=== PATIENT | male | born 1935 | race Caucasian/White ===

== ENCOUNTER 2020-01-24 09:04 | Outpatient (REF) | payer MEDICARE, SELFPAY ==
[2020-01-24 10:11] LABS: MANUAL DIFF FLAG NO
[2020-01-24 10:25] LABS: Estimated Average Glucose 140 mg/dL; Hemoglobin A1c % 6.5 %
[2020-01-24 10:26] LABS: Basophils Percent Auto 0.6 % (0-2); Eosinophils Absolute Auto 0.2 X10*3/uL (0.0-0.4); Eosinophils Percent Auto 3.3 % (0-4); Hematocrit 44.3 % (42-52); Hemoglobin 14.7 g/dl (14.0-18.0); Imm Gran Abs Auto 0.03 X10*3/uL (0.00-0.03); Imm Gran Pct Auto 0.4 % (0.0-0.4); Lymphocytes Percent Auto 28.9 % (20-40); Mean Corpuscular HGB Conc 33.2 g/dl (31.0-36.0); Mean Corpuscular Volume 84.4 fL (80-98); Mean Platelet Volume 10.8 fL (9.4-12.4); Monocytes Absolute Auto 0.7 X10*3/uL (0.1-1.2); Monocytes Percent Auto 9.6 % (2-11); Neutrophils Percent Auto 57.2 % (45-73); Platelet Count 163 X10*3/uL (160-400); Red Blood Count 5.25 X10*6/uL (4.60-5.80); Red Cell Distribution Width 12.9 % (11.0-16.0)
[2020-01-24 10:49] LABS: Alanine Aminotransferase 22 U/L (0-40); Albumin Level 4.3 g/dL (3.5-5.0); Alkaline Phosphatase 81 U/L (39-117); Anion Gap 12 (12-20); Aspartate Amino Transferase 18 U/L (5-37); Bilirubin Total 0.6 mg/dL (0.0-1.0); Blood Urea Nitrogen 18 mg/dL (9-16); Carbon Dioxide 31 mmol/L (22-29); Chloride 106 mmol/L (96-108); Cholesterol 145 mg/dL; Estimated Glomerular Filt Rate > 60; Glucose Fasting 121 mg/dL (60-99); HDL Cholesterol 31 mg/dL; LDL Cholesterol Calculated 95 mg/dl; Potassium 4.7 mmol/l (3.3-5.1); Sodium 144 mmol/L (135-145); Total Protein 6.5 g/dL (6.5-8.0); Triglycerides 96 mg/dL
[2020-01-24 11:32] LABS: Creatinine Urine 58.53 mg/dL; Microalbum/Creatinine Ratio Ur 11.9 ug/mg cr
== END 2020-01-24 09:05 | disposition home or self-care (01) ==
LOC: HO.10HDL 09:04
PROVIDERS: Visit Provider Internal Medicine Medical Oncology
DX: C34.90 Malignant neoplasm of unspecified part of unspecified bronchus or lung (principal); E11.9 Type 2 diabetes mellitus without complications; I10 Essential (primary) hypertension
CPT/HCPCS: 36415; 80053; 80061; 82043; 83036; 85025

== ENCOUNTER 2020-04-14 10:07 | Outpatient (REF) | payer MEDICARE, SELFPAY ==
[2020-04-14 14:15] LABS: MANUAL DIFF FLAG NO
[2020-04-14 14:22] LABS: Basophils Absolute Auto 0.1 X10*3/uL (0.0-0.2); Basophils Percent Auto 0.7 % (0-2); Eosinophils Absolute Auto 0.2 X10*3/uL (0.0-0.4); Eosinophils Percent Auto 2.9 % (0-4); Hematocrit 48.4 % (42-52); Hemoglobin 15.6 g/dl (14.0-18.0); Imm Gran Abs Auto 0.01 X10*3/uL (0.00-0.03); Imm Gran Pct Auto 0.1 % (0.0-0.4); Lymphocytes Absolute Auto 1.9 X10*3/uL (1.2-4.9); Lymphocytes Percent Auto 25.3 % (20-40); Mean Corpuscular HGB Conc 32.2 g/dl (31.0-36.0); Mean Corpuscular Hemoglobin 27.7 pg (27.0-33.0); Mean Corpuscular Volume 85.8 fL (80-98); Mean Platelet Volume 10.6 fL (9.4-12.4); Monocytes Absolute Auto 0.7 X10*3/uL (0.1-1.2); Monocytes Percent Auto 8.8 % (2-11); Neutrophils Absolute Auto 4.7 X10*3/uL (2.0-8.3); Neutrophils Percent Auto 62.2 % (45-73); Platelet Count 174 X10*3/uL (160-400); Red Blood Count 5.64 X10*6/uL (4.60-5.80); White Blood Count 7.5 X10*3/uL (4.8-10.8)
[2020-04-14 14:42] LABS: Alanine Aminotransferase 29 U/L (0-40); Albumin Level 4.4 g/dL (3.5-5.0); Alkaline Phosphatase 109 U/L (39-117); Anion Gap 15 (12-20); Aspartate Amino Transferase 21 U/L (5-37); Bilirubin Total 0.6 mg/dL (0.0-1.0); Blood Urea Nitrogen 17 mg/dL (9-16); Carbon Dioxide 29 mmol/L (22-29); Chloride 101 mmol/L (96-108); Cholesterol 159 mg/dL; Estimated Average Glucose 154 mg/dL; Estimated Glomerular Filt Rate > 60; Glucose Fasting 109 mg/dL (60-99); HDL Cholesterol 33 mg/dL; LDL Cholesterol Calculated 102 mg/dl; Potassium 4.2 mmol/l (3.3-5.1); Sodium 141 mmol/L (135-145); Total Protein 6.8 g/dL (6.5-8.0); Triglycerides 121 mg/dL
[2020-04-14 14:50] LABS: Creatinine Urine 86.92 mg/dL; Microalbum/Creatinine Ratio Ur 18.4 ug/mg cr
== END 2020-04-14 10:08 | disposition home or self-care (01) ==
LOC: HO.10HDL 10:07
PROVIDERS: Absent Provider Internal Medicine; PCP Internal Medicine; Visit Provider Internal Medicine Medical Oncology
DX: C34.90 Malignant neoplasm of unspecified part of unspecified bronchus or lung (principal); I10 Essential (primary) hypertension; E11.9 Type 2 diabetes mellitus without complications
CPT/HCPCS: 36415; 80053; 80061; 82043; 83036; 85025

== ENCOUNTER 2020-05-18 10:58 | Outpatient (REF) | payer MEDICARE, SELFPAY ==
--- NOTE | ~2020-05-18 | XR_ITS ---
EXAMINATION: XR CHEST CLINICAL INFORMATION: Non-small cell lung carcinoma. COMPARISON: Chest 10/23/2019 TECHNIQUE: 2 views of the chest were obtained. FINDINGS: The right hemidiaphragm is elevated. The lungs are otherwise well-expanded and clear. The heart size is borderline normal. Vascularity is normal. No gross bony abnormality seen. XR/XR chest 2V IMPRESSION: Unremarkable chest examination. No change from 10/23/2019
== END 2020-05-18 10:59 | disposition home or self-care (01) ==
LOC: HO.XRAY 10:58
PROVIDERS: Absent Provider Internal Medicine; PCP Internal Medicine; Visit Provider Internal Medicine Medical Oncology
DX: C34.90 Malignant neoplasm of unspecified part of unspecified bronchus or lung (principal)
CPT/HCPCS: 71046

== ENCOUNTER 2020-06-24 11:21 | Outpatient (REF) | payer MEDICARE, SELFPAY ==
[2020-06-24 14:06] LABS: MANUAL DIFF FLAG NO
[2020-06-24 14:11] LABS: Basophils Absolute Auto 0.1 X10*3/uL (0.0-0.2); Basophils Percent Auto 0.7 % (0-2); Eosinophils Absolute Auto 0.3 X10*3/uL (0.0-0.4); Eosinophils Percent Auto 3.2 % (0-4); Hematocrit 48.2 % (42-52); Hemoglobin 16.1 g/dl (14.0-18.0); Imm Gran Abs Auto 0.02 X10*3/uL (0.00-0.03); Imm Gran Pct Auto 0.2 % (0.0-0.4); Lymphocytes Percent Auto 25.1 % (20-40); Mean Corpuscular HGB Conc 33.4 g/dl (31.0-36.0); Mean Corpuscular Hemoglobin 28.2 pg (27.0-33.0); Mean Corpuscular Volume 84.4 fL (80-98); Mean Platelet Volume 11.2 fL (9.4-12.4); Monocytes Absolute Auto 0.6 X10*3/uL (0.1-1.2); Monocytes Percent Auto 7.3 % (2-11); Neutrophils Absolute Auto 5.2 X10*3/uL (2.0-8.3); Neutrophils Percent Auto 63.5 % (45-73); Platelet Count 167 X10*3/uL (160-400); Red Blood Count 5.71 X10*6/uL (4.60-5.80); Red Cell Distribution Width 13.2 % (11.0-16.0); White Blood Count 8.1 X10*3/uL (4.8-10.8)
[2020-06-24 14:26] LABS: Estimated Average Glucose 134 mg/dL; Hemoglobin A1c % 6.3 %
[2020-06-24 14:31] LABS: Alanine Aminotransferase 20 U/L (0-40); Albumin Level 4.4 g/dL (3.5-5.0); Alkaline Phosphatase 94 U/L (39-117); Anion Gap 13 (12-20); Aspartate Amino Transferase 21 U/L (5-37); Bilirubin Total 0.9 mg/dL (0.0-1.0); Blood Urea Nitrogen 15 mg/dL (9-16); C Reactive Protein 0.24 mg/dL (< or = 0.50); Calcium 8.9 mg/dL (8.4-10.2); Carbon Dioxide 31 mmol/L (22-29); Chloride 100 mmol/L (96-108); Creatinine Urine 95.48 mg/dL; Estimated Glomerular Filt Rate > 60; Glucose Random 167 mg/dL (60-115); Microalbum/Creatinine Ratio Ur 20.9 ug/mg cr; Potassium 4.1 mmol/L (3.3-5.1); Sodium 140 mmol/L (135-145); Total Protein 6.8 g/dL (6.5-8.0)
[2020-06-24 15:01] LABS: Vitamin B12 308 pg/mL (200-900)
== END 2020-06-24 11:22 | disposition home or self-care (01) ==
LOC: HO.10HDL 11:21
PROVIDERS: Visit Provider Internal Medicine
DX: E11.9 Type 2 diabetes mellitus without complications (principal); G62.9 Polyneuropathy, unspecified; Z85.118 Personal history of other malignant neoplasm of bronchus and lung
CPT/HCPCS: 36415; 80053; 82043; 82607; 83036; 85025; 86140

== ENCOUNTER 2020-09-15 12:55 | Outpatient (REF) | payer MEDICARE, SELFPAY ==
--- NOTE | ~2020-09-15 | CT_ITS ---
EXAMINATION: CT CHEST WITHOUT CONTRAST CLINICAL INFORMATION: Malignant neoplasm right upper lobe. COMPARISON: Previous chest CT scans most recent June 2019 and chest x-ray most recent May 2020 TECHNIQUE: Multidetector volumetric CT imaging of the chest was done. Axial MIP volume rendering provided. Sagittal and coronal reformatted images were obtained. This CT examination was performed using dose optimization techniques as appropriate, variously including the following: *Automated exposure control *Adjustment of mA and/or kV according to patient size (this includes techniques or standardized protocols for targeted exams where dose is matched to indication/reason for exam; i.e. extremities or head) *Use of iterative reconstruction technique DLP: 167 mGy-cm FINDINGS: LUNGS: There are postsurgical changes following right upper lobe lobectomy. There is a linear parenchymal density at the right lung apex axial image 113 series 7 that is stable. There is scarring or subsegmental atelectasis adjacent to the surgical suture line, for example axial image 213 series 7, that is stable. The small pulmonary nodules are stable. Largest is a 4 mm peripheral or subpleural right lower lobe nodule adjacent to the major fissure probably representing a subpleural lymph node axial image 297 series 7. No new pulmonary nodules are seen. MEDIASTINUM: There are small mediastinal lymph nodes that are stable. There are small calcified right hilar lymph nodes that are stable. No enlarged lymph nodes are seen. The ascending thoracic aorta is slightly dilated measuring 4.3 cm. The aortic arch is slightly dilated measuring 3.6 cm. The descending thoracic aorta is slightly dilated measuring 3.4 cm. This is unchanged. The heart does not appear enlarged. There is coronary artery and aortic valve calcification. There is no pericardial effusion. PLEURA: There is no pleural effusion. No pleural mass or thickening. AXILLA: No lymphadenopathy. UPPER ABDOMEN: There are calcifications in the liver and spleen probably related to old granulomatous disease. There is a gallstone in the gallbladder. There is a 1 cm low-attenuation lesion exophytic to the upper left kidney probably representing a cyst that is stable. 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 There is diverticulosis of the colon. OSSEOUS STRUCTURES: There are degenerative changes of the spine. There is an old T2 vertebral body compression fracture that is stable. There is a sclerotic density in the anterior C7 vertebral body that is stable. CT/CT chest wo con IMPRESSION: Stable postsurgical changes to the right upper lobe. Stable small pulmonary nodules. Evidence of old granulomatous disease. Coronary artery and aortic valve calcification. Stable dilatation of the thoracic aorta. Stable abdominal findings.
== END 2020-09-15 12:56 | disposition home or self-care (01) ==
LOC: HO.CT 12:55
PROVIDERS: Visit Provider Surgery
DX: C34.11 Malignant neoplasm of upper lobe, right bronchus or lung (principal)
CPT/HCPCS: 71250

== ENCOUNTER → 2020-10-09 11:00 | Outpatient (BNVA) | payer MEDICARE, SELFPAY | PROVIDERS: PCP Internal Medicine; Visit Provider Surgery | DX: Z85.118 Personal history of other malignant neoplasm of bronchus and lung (principal); Z79.899 Other long term (current) drug therapy; Z90.2 Acquired absence of lung [part of] | CPT/HCPCS: 99212 ==

== ENCOUNTER 2020-10-15 09:59 | Outpatient (REF) | payer MEDICARE, SELFPAY ==
[2020-10-15 13:32] LABS: MANUAL DIFF FLAG NO
[2020-10-15 13:40] LABS: Basophils Absolute Auto 0.1 X10*3/uL (0.0-0.2); Basophils Percent Auto 0.8 % (0-2); Eosinophils Absolute Auto 0.2 X10*3/uL (0.0-0.4); Hematocrit 48.3 % (42-52); Imm Gran Abs Auto 0.02 X10*3/uL (0.00-0.03); Imm Gran Pct Auto 0.3 % (0.0-0.4); Lymphocytes Absolute Auto 1.8 X10*3/uL (1.2-4.9); Lymphocytes Percent Auto 25.2 % (20-40); Mean Corpuscular HGB Conc 33.1 g/dl (31.0-36.0); Mean Corpuscular Hemoglobin 28.4 pg (27.0-33.0); Mean Corpuscular Volume 85.6 fL (80-98); Mean Platelet Volume 10.8 fL (9.4-12.4); Monocytes Absolute Auto 0.5 X10*3/uL (0.1-1.2); Monocytes Percent Auto 7.1 % (2-11); Neutrophils Absolute Auto 4.5 X10*3/uL (2.0-8.3); Neutrophils Percent Auto 63.6 % (45-73); Platelet Count 156 X10*3/uL (160-400); Red Blood Count 5.64 X10*6/uL (4.60-5.80); Red Cell Distribution Width 13.2 % (11.0-16.0); White Blood Count 7.1 X10*3/uL (4.8-10.8)
[2020-10-15 13:59] LABS: Alanine Aminotransferase 22 U/L (0-40); Albumin Level 4.4 g/dL (3.5-5.0); Alkaline Phosphatase 92 U/L (39-117); Anion Gap 12 (12-20); Aspartate Amino Transferase 18 U/L (5-37); Bilirubin Total 0.7 mg/dL (0.0-1.0); Blood Urea Nitrogen 19 mg/dL (9-16); Calcium 9.2 mg/dL (8.4-10.2); Carbon Dioxide 31 mmol/L (22-29); Chloride 104 mmol/L (96-108); Estimated Glomerular Filt Rate > 60; Glucose Random 114 mg/dL (60-115); Potassium 4.4 mmol/L (3.3-5.1); Sodium 143 mmol/L (135-145); Total Protein 7.1 g/dL (6.5-8.0)
== END 2020-10-15 10:00 | disposition home or self-care (01) ==
LOC: HO.10HDL 09:59
PROVIDERS: PCP Internal Medicine; Visit Provider Internal Medicine Medical Oncology
DX: C34.90 Malignant neoplasm of unspecified part of unspecified bronchus or lung (principal)
CPT/HCPCS: 36415; 80053; 85025

== ENCOUNTER → 2020-11-05 13:33 | Outpatient (BNVA) | payer MEDICARE, SELFPAY | PROVIDERS: PCP Internal Medicine; Referring Provider Internal Medicine; Visit Provider Internal Medicine | DX: I49.8 Other specified cardiac arrhythmias (principal); I10 Essential (primary) hypertension; E11.8 Type 2 diabetes mellitus with unspecified complications | CPT/HCPCS: 93005; 99212 ==

== ENCOUNTER 2021-02-11 11:36 | Outpatient (REF) | payer MEDICARE, SELFPAY ==
[2021-02-11 12:44] LABS: MANUAL DIFF FLAG NO
[2021-02-11 13:06] LABS: Estimated Average Glucose 140 mg/dL; Hemoglobin A1c % 6.5 %
[2021-02-11 13:08] LABS: Alanine Aminotransferase 19 U/L (0-40); Albumin Level 4.2 g/dL (3.5-5.0); Alkaline Phosphatase 97 U/L (39-117); Anion Gap 13 (12-20); Aspartate Amino Transferase 19 U/L (5-37); Bilirubin Total 0.9 mg/dL (0.0-1.0); Blood Urea Nitrogen 18 mg/dL (9-16); Calcium 9.2 mg/dL (8.4-10.2); Carbon Dioxide 31 mmol/L (22-29); Chloride 102 mmol/L (96-108); Estimated Glomerular Filt Rate > 60; Glucose Random 214 mg/dL (60-115); Potassium 4.2 mmol/L (3.3-5.1); Sodium 142 mmol/L (135-145); Total Protein 6.8 g/dL (6.5-8.0)
[2021-02-11 13:13] LABS: Basophils Absolute Auto 0.1 X10*3/uL (0.0-0.2); Basophils Percent Auto 0.8 % (0-2); Eosinophils Absolute Auto 0.2 X10*3/uL (0.0-0.4); Hematocrit 45.9 % (42.0-52.0); Hemoglobin 15.3 g/dl (14.0-18.0); Imm Gran Abs Auto 0.02 X10*3/uL (0.00-0.03); Imm Gran Pct Auto 0.3 % (0.0-0.4); Lymphocytes Absolute Auto 1.6 X10*3/uL (1.2-4.9); Lymphocytes Percent Auto 24.7 % (20-40); Mean Corpuscular HGB Conc 33.3 g/dl (31.0-36.0); Mean Corpuscular Hemoglobin 28.3 pg (27.0-33.0); Mean Corpuscular Volume 84.8 fL (80.0-98.0); Mean Platelet Volume 10.4 fL (9.4-12.4); Monocytes Absolute Auto 0.5 X10*3/uL (0.1-1.2); Monocytes Percent Auto 7.8 % (2-11); Neutrophils Absolute Auto 4.17 x10*3/uL (2.0-8.3); Neutrophils Percent Auto 63.4 % (45-73); Platelet Count 152 X10*3/uL (160-400); Red Blood Count 5.41 X10*6/uL (4.60-5.80); White Blood Count 6.6 X10*3/uL (4.8-10.8)
[2021-02-11 14:17] LABS: Creatinine Urine 78.53 mg/dL; Microalbum/Creatinine Ratio Ur 20.3 ug/mg cr
== END 2021-02-11 11:37 | disposition home or self-care (01) ==
LOC: HO.10HDL 11:36
PROVIDERS: Absent Provider Internal Medicine Medical Oncology; Visit Provider Internal Medicine
DX: E11.9 Type 2 diabetes mellitus without complications (principal); I48.91 Unspecified atrial fibrillation
CPT/HCPCS: 36415; 80053; 82043; 83036; 85025

== ENCOUNTER 2021-06-22 11:52 | Outpatient (REF) | payer MEDICARE, SELFPAY ==
--- NOTE | ~2021-06-22 | XR_ITS ---
EXAMINATION: XR CHEST CLINICAL INFORMATION: Non-small cell lung cancer. COMPARISON: Chest radiographs 05/18/2020, 10/23/2019, CT chest noncontrast 09/15/2020 TECHNIQUE: 2 views of the chest were obtained. FINDINGS: Lungs appear grossly clear, similar to prior study. There is no visible mass or airspace consolidation or groundglass opacity or effusion. Mild elevation/eventration right anterior diaphragm is stable. The costophrenic sulci are clear. The cardiac and hilar and mediastinal contours and visualized bony structures are stable. XR/XR chest 2V IMPRESSION: No acute intrathoracic disease.
[2021-06-22 12:44] LABS: Basophils Absolute Auto 0.1 X10*3/uL (0.0-0.2); Basophils Percent Auto 0.7 % (0-2); Eosinophils Absolute Auto 0.2 X10*3/uL (0.0-0.4); Eosinophils Percent Auto 3.3 % (0-4); Hematocrit 48.2 % (42.0-52.0); Hemoglobin 15.9 g/dl (14.0-18.0); Imm Gran Abs Auto 0.03 X10*3/uL (0.00-0.03); Imm Gran Pct Auto 0.4 % (0.0-0.4); Lymphocytes Absolute Auto 1.7 X10*3/uL (1.2-4.9); MANUAL DIFF FLAG NO; Mean Corpuscular Hemoglobin 28.3 pg (27.0-33.0); Mean Corpuscular Volume 85.8 fL (80.0-98.0); Mean Platelet Volume 10.7 fL (9.4-12.4); Monocytes Absolute Auto 0.5 X10*3/uL (0.1-1.2); Monocytes Percent Auto 7.3 % (2-11); Neutrophils Absolute Auto 4.6 x10*3/uL (2.0-8.3); Neutrophils Percent Auto 64.3 % (45-73); Platelet Count 171 X10*3/uL (160-400); Red Blood Count 5.62 X10*6/uL (4.60-5.80); Red Cell Distribution Width 13.2 % (11.0-16.0); White Blood Count 7.2 X10*3/uL (4.8-10.8)
[2021-06-22 13:20] LABS: Alanine Aminotransferase 19 U/L (0-40); Albumin Level 4.4 g/dL (3.5-5.0); Alkaline Phosphatase 107 U/L (39-117); Anion Gap 14 (12-20); Aspartate Amino Transferase 17 U/L (5-37); Bilirubin Total 0.8 mg/dL (0.0-1.0); Blood Urea Nitrogen 18 mg/dL (9-16); Calcium 10.1 mg/dL (8.4-10.2); Carbon Dioxide 27 mmol/L (22-29); Chloride 101 mmol/L (96-108); Estimated Glomerular Filt Rate 57; Glucose Random 235 mg/dL (60-115); Magnesium 1.8 mg/dL (1.6-2.6); Potassium 4.3 mmol/L (3.3-5.1); Sodium 138 mmol/L (135-145)
[2021-06-22 13:40] LABS: Prostate Specific Antigen 2.79 ng/mL (<0.05-4.0)
== END 2021-06-22 11:53 | disposition home or self-care (01) ==
LOC: HO.XRAY 11:52
PROVIDERS: Absent Provider Internal Medicine; PCP Internal Medicine; Visit Provider Internal Medicine Medical Oncology
DX: Z12.5 Encounter for screening for malignant neoplasm of prostate (principal); C34.90 Malignant neoplasm of unspecified part of unspecified bronchus or lung; I10 Essential (primary) hypertension; N40.1 Benign prostatic hyperplasia with lower urinary tract symptoms; I48.0 Paroxysmal atrial fibrillation
CPT/HCPCS: 36415; 71046; 80053; 83735; 84153; 85025

== ENCOUNTER 2021-09-02 13:50 | Outpatient (REF) | payer MEDICARE, SELFPAY ==
[2021-09-02 14:10] LABS: MANUAL DIFF FLAG NO
[2021-09-02 14:19] LABS: Basophils Absolute Auto 0.1 X10*3/uL (0.0-0.2); Basophils Percent Auto 0.6 % (0-2); Eosinophils Absolute Auto 0.2 X10*3/uL (0.0-0.4); Eosinophils Percent Auto 2.1 % (0-4); Hematocrit 46.8 % (42.0-52.0); Hemoglobin 15.5 g/dl (14.0-18.0); Imm Gran Abs Auto 0.03 X10*3/uL (0.00-0.03); Imm Gran Pct Auto 0.4 % (0.0-0.4); Lymphocytes Absolute Auto 1.8 X10*3/uL (1.2-4.9); Lymphocytes Percent Auto 22.1 % (20-40); Mean Corpuscular HGB Conc 33.1 g/dl (31.0-36.0); Mean Corpuscular Hemoglobin 28.1 pg (27.0-33.0); Mean Corpuscular Volume 84.8 fL (80.0-98.0); Mean Platelet Volume 10.1 fL (9.4-12.4); Monocytes Absolute Auto 0.7 X10*3/uL (0.1-1.2); Monocytes Percent Auto 8.8 % (2-11); Neutrophils Absolute Auto 5.4 x10*3/uL (2.0-8.3); Platelet Count 165 X10*3/uL (160-400); Red Blood Count 5.52 X10*6/uL (4.60-5.80); Red Cell Distribution Width 13.1 % (11.0-16.0); White Blood Count 8.2 X10*3/uL (4.8-10.8)
[2021-09-02 14:48] LABS: Estimated Average Glucose 140 mg/dL; Hemoglobin A1c % 6.5 %
[2021-09-02 15:49] LABS: Alanine Aminotransferase 23 U/L (0-40); Albumin Level 4.3 g/dL (3.5-5.0); Alkaline Phosphatase 88 U/L (39-117); Anion Gap 14 (12-20); Aspartate Amino Transferase 19 U/L (5-37); Bilirubin Total 0.7 mg/dL (0.0-1.0); Blood Urea Nitrogen 21 mg/dL (9-16); C Reactive Protein 0.16 mg/dL (< or = 0.50); Calcium 9.7 mg/dL (8.4-10.2); Carbon Dioxide 28 mmol/L (22-29); Chloride 105 mmol/L (96-108); Estimated Glomerular Filt Rate > 60; Glucose Random 140 mg/dL (60-115); Potassium 4.6 mmol/L (3.3-5.1); Sodium 142 mmol/L (135-145)
[2021-09-02 16:09] LABS: Free T4 (Free Thyroxine) 1.05 ng/dL (0.71-1.85); Thyroid Stimulating Hormone 0.98 uIU/mL (0.32-4.0)
[2021-09-02 16:16] LABS: Microalbum/Creatinine Ratio Ur 12.8 ug/mg cr
[2021-09-02 16:16] LABS: Vitamin B12 282 pg/mL (200-900)
== END 2021-09-02 13:51 | disposition home or self-care (01) ==
LOC: HO.LAB 13:50
PROVIDERS: Absent Provider Surgery; PCP Internal Medicine; Visit Provider Internal Medicine
DX: I48.0 Paroxysmal atrial fibrillation (principal); E11.9 Type 2 diabetes mellitus without complications; R21 Rash and other nonspecific skin eruption; R25.1 Tremor, unspecified
CPT/HCPCS: 36415; 80053; 82043; 82607; 83036; 84439; 84443; 85025; 86140

== ENCOUNTER 2021-09-20 12:45 | Outpatient (REF) | payer MEDICARE, SELFPAY ==
--- NOTE | ~2021-09-20 | CT_ITS ---
EXAMINATION: CT CHEST WITHOUT CONTRAST CLINICAL INFORMATION: Malignant neoplasm of upper lobes, right bronchus. COMPARISON: CT chest 09/27/2020. TECHNIQUE: Multidetector volumetric CT imaging of the chest was done. Axial MIP volume rendering provided. Sagittal and coronal reformatted images were obtained. This CT examination was performed using dose optimization techniques as appropriate, variously including the following: *Automated exposure control *Adjustment of mA and/or kV according to patient size (this includes techniques or standardized protocols for targeted exams where dose is matched to indication/reason for exam; i.e. 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 LUNGS: Again visualized are right upper lobectomy changes with thick scar. There is minimal right apical medial major fissure thickening as well. Focal small nodular thickening is in the right lung apex axial image 108/7 and small micronodules in the right upper lobe are stable. There is a 5 mm nodule right lower lobe adjacent to the major fissure axial image 291/7, likely subpleural nodule. Previously it measured 4 mm, essentially stable. No additional nodules seen. Mild focal atelectatic changes in the left lung base posterior basal segment is stable. MEDIASTINUM: The thyroid lobes are symmetrical with a small hypodense 8 mm nodule in the left thyroid lobe, stable. Central trachea and the bronchi widely patent. Mild atherosclerotic calcification and mild ectasia of the aortic arch. The ascending arch measures 4.4 x 4.5 cm and dilated on axial image 29/3. The descending thoracic aorta measures 3.4 x 3.5 cm. No aneurysmal dilatation. PLEURA: There is no pleural effusion. No pleural mass or thickening. AXILLA: No lymphadenopathy. UPPER ABDOMEN: There are scattered calcifications seen in the liver and spleen likely granulomas. Otherwise unremarkable. There is a solitary gallstone without wall thickening. There are bilateral fatty adrenal lesions likely myolipomas. There is 1.6 cm exophytic cyst upper pole left kidney. OSSEOUS STRUCTURES: There is mild compression deformity T2 vertebra unchanged since previous study. CT/CT chest wo con IMPRESSION: Postsurgical changes right upper lobe are stable. Small pulmonary nodules and subpleural nodules likely lymph nodes are also stable in the right lower lobe. 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 Bilateral adrenal fatty tumors and exophytic cysts upper pole left kidney appear stable. There are multiple calcified liver and spleen granulomas and a solitary gallstone which is stable. Fleischner guidelines were followed.
== END 2021-09-20 12:46 | disposition home or self-care (01) ==
LOC: HO.CT 12:45
PROVIDERS: PCP Internal Medicine; Visit Provider Surgery
DX: C34.11 Malignant neoplasm of upper lobe, right bronchus or lung (principal)
CPT/HCPCS: 71250

== ENCOUNTER → 2021-10-01 09:07 | Outpatient (BNVA) | payer MEDICARE, SELFPAY | PROVIDERS: PCP Internal Medicine; Visit Provider Surgery | DX: Z85.118 Personal history of other malignant neoplasm of bronchus and lung (principal); Z90.2 Acquired absence of lung [part of] | CPT/HCPCS: 99212 ==

== ENCOUNTER → 2021-11-08 12:40 | Outpatient (BNVA) | payer MEDICARE, SELFPAY | PROVIDERS: PCP Internal Medicine; Referring Provider Internal Medicine; Visit Provider Internal Medicine | DX: I49.8 Other specified cardiac arrhythmias (principal); I10 Essential (primary) hypertension; E11.8 Type 2 diabetes mellitus with unspecified complications; Z79.01 Long term (current) use of anticoagulants; Z79.4 Long term (current) use of insulin; Z79.899 Other long term (current) drug therapy | CPT/HCPCS: 93005; 99212 ==

== ENCOUNTER 2022-01-13 13:45 | Outpatient (REF) | payer MEDICARE, SELFPAY ==
[2022-01-13 15:19] LABS: Thyroid Stimulating Hormone 1.65 uIU/mL (0.32-4.0)
[2022-01-13 15:28] LABS: Vitamin B12 329 pg/mL (200-900)
[2022-01-17 13:32] LABS: Anti Nuclear Antibody Screen NEGATIVE (NEGATIVE)
[2022-01-17 14:43] LABS: Prot Elec - Albumin 4.7 g/dL (3.8-4.8); Prot Elec - Alpha1 0.3 g/dL (0.2-0.3); Prot Elec - Alpha2 0.9 g/dL (0.5-0.9); Prot Elec - Beta 1 0.5 g/dL (0.4-0.6); Prot Elec - Beta 2 0.2 g/dL (0.2-0.5); Prot Elec - Gamma 0.9 g/dL (0.8-1.7); Prot Elec - Total Protein 7.4 g/dL (6.1-8.1)
== END 2022-01-13 13:46 | disposition home or self-care (01) ==
LOC: HO.LAB 13:45
PROVIDERS: PCP Internal Medicine; Referring Provider Internal Medicine; Visit Provider Psychiatry & Neurology Neurology
DX: R20.0 Anesthesia of skin (principal); G62.9 Polyneuropathy, unspecified
CPT/HCPCS: 36415; 82607; 84165; 84443; 86038; 86039

== ENCOUNTER 2022-05-19 10:42 | Outpatient (REF) | payer MEDICARE, SELFPAY ==
[2022-05-19 13:38] LABS: MANUAL DIFF FLAG NO
[2022-05-19 13:43] LABS: Basophils Absolute Auto 0.1 X10*3/uL (0.0-0.2); Basophils Percent Auto 0.8 % (0-2); Eosinophils Absolute Auto 0.3 X10*3/uL (0.0-0.4); Eosinophils Percent Auto 3.2 % (0-4); Hematocrit 45.5 % (42.0-52.0); Imm Gran Abs Auto 0.03 X10*3/uL (0.00-0.03); Imm Gran Pct Auto 0.4 % (0.0-0.4); Lymphocytes Absolute Auto 1.9 X10*3/uL (1.2-4.9); Lymphocytes Percent Auto 24.7 % (20-40); Mean Corpuscular Hemoglobin 27.2 pg (27.0-33.0); Mean Corpuscular Volume 82.6 fL (80.0-98.0); Mean Platelet Volume 10.7 fL (9.4-12.4); Monocytes Absolute Auto 0.7 X10*3/uL (0.1-1.2); Monocytes Percent Auto 8.7 % (2-11); Neutrophils Absolute Auto 4.8 x10*3/uL (2.0-8.3); Neutrophils Percent Auto 62.2 % (45-73); Platelet Count 189 X10*3/uL (160-400); Red Blood Count 5.51 X10*6/uL (4.60-5.80); Red Cell Distribution Width 13.3 % (11.0-16.0); White Blood Count 7.7 X10*3/uL (4.8-10.8)
[2022-05-19 13:58] LABS: Appearance Urine Clear; Color Urine Yellow; Glucose Urine UA Negative (Negative); Leukocyte Esterase Urine Negative (Negative); Nitrite Urine Negative (Negative); PH 6.5 (5.0-9.0); Urine Blood Negative (Negative); Urine Ketones Negative (Negative); Urine Protein Negative (Neg-Trace)
[2022-05-19 14:05] LABS: Alanine Aminotransferase 23 U/L (0-40); Albumin Level 4.2 g/dL (3.5-5.0); Alkaline Phosphatase 101 U/L (39-117); Anion Gap 15 (12-20); Aspartate Amino Transferase 19 U/L (5-37); Bilirubin Total 0.8 mg/dL (0.0-1.0); Blood Urea Nitrogen 18 mg/dL (9-16); Calcium 9.5 mg/dL (8.4-10.2); Carbon Dioxide 29 mmol/L (22-29); Chloride 102 mmol/L (96-108); Cholesterol 148 mg/dL; Estimated Glomerular Filt Rate > 60; Glucose Fasting 73 mg/dL (60-99); HDL Cholesterol 29 mg/dL; LDL Cholesterol Calculated 99 mg/dl; Potassium 4.2 mmol/L (3.3-5.1); Sodium 142 mmol/L (135-145); Total Protein 6.7 g/dL (6.5-8.0); Triglycerides 101 mg/dL
[2022-05-19 14:15] LABS: Estimated Average Glucose 146 mg/dL; Hemoglobin A1c % 6.7 %
[2022-05-19 14:21] LABS: Prostate Specific Antigen Scr 3.03 ng/mL (<0.05-4.0)
[2022-05-19 14:26] LABS: Creatinine Urine 66.63 mg/dL
== END 2022-05-19 10:43 | disposition home or self-care (01) ==
LOC: HO.10HDL 10:42
PROVIDERS: Absent Provider Internal Medicine Medical Oncology; Visit Provider Internal Medicine
DX: Z00.00 Encounter for general adult medical examination without abnormal findings (principal); Z12.5 Encounter for screening for malignant neoplasm of prostate; E11.9 Type 2 diabetes mellitus without complications
CPT/HCPCS: 36415; 80053; 80061; 81003; 82043; 83036; 84153; 85025

== ENCOUNTER 2022-11-15 12:51 | Outpatient (AMB) | payer MEDICARE, SELFPAY ==
[2022-11-15 12:57] VITALS: BP 130/70; PULSE 70; BMI 24.8
--- NOTE | 2022-11-15 12:57 | A.OFFVIS_ITS ---
Intake Vital Signs 11/15/22 12:57 Height 6 ft 1 in Weight 188 lb 4.396 oz BMI 24.8 BP 130/70 Blood Pressure Location Lt brachial Position Sitting Pulse 70 Intake Visit Reasons: 1 yr f/u Intake Note: 1 year follow up w/ EKG [employer] Required: No Accompanied by: Spouse Allergies No Known Allergies [No Known Allergies*] Allergy (Verified 11/15/22 13:00) Medication List - Last Reconciled 11/15/22 by Kris Brush MD amlodipine 10 mg PO DAILY carvedilol 3.125 mg PO BID cholecalciferol (vitamin D3) 25 mcg PO DAILY insulin degludec (Tresiba FlexTouch U-100 insulin) 36 units subcut DAILY insulin degludec units subcut metformin ER 500 mg PO BID pen needle, diabetic As directed rivaroxaban (Xarelto) 20 mg PO DAILY tamsulosin 0.8 mg PO DAILY HPI HPI Comments History of Present Illness Details Jah is here for follow-up regarding atrial arrhythmias. To recall, in 2015, he underwent right upper lobectomy as well as mediastinal lymphadenectomy for lung cancer. That was incidentally detected after routine imaging for fall. Postoperatively, he developed atrial arrhythmias that appeared to be atrial tachycardia. Could not exclude short bursts of atrial fibrillation. Then in 2017, he had resection of metastatic lesion to the brain. Subsequently admitted to our hospital with acute pulmonary embolism. Then again had recurrent atrial arrhythmias suspected to be atrial tachycardia versus flutter/fibrillation. Then put on amiodarone. He is currently on carvedilol and Xarelto. Overall, he is feeling good. No specific complaints. No angina or shortness of breath. No palpitations. Seems to be getting along fine. PENDING SALE TO [facility] Medical History Atrial fibrillation History of cervical fracture History of fracture of rib Hypertension, essential Lung cancer metastatic to brain (~2016) USHA (obstructive sleep apnea) Personal history of nicotine dependence Primary adenocarcinoma of upper lobe of right lung (~2014) Pulmonary embolism, bilateral (~2016) Pulmonary nodules Type 2 diabetes mellitus Type 2 diabetes mellitus with unspecified complications Surgical History History of brain surgery (~02/2017) History of colonoscopy History of lobectomy of lung (~04/2015) History of rotator cuff surgery History of surgery on right wrist Family History Mother Breast cancer Myocardial infarction Father COPD (chronic obstructive pulmonary disease) Brother Myocardial infarction Social History Patient Tobacco Use Status: Former Tobacco user Review of Systems Const Denies weakness ENT Denies dizziness Card Denies chest pain, Denies chest pain with activity, Denies syncope, Denies rapid heart rate, Denies pedal edema, Denies edema, Denies leg edema, Denies lightheadedness, Denies palpitations, Denies dyspnea, Denies dyspnea on exertion and Denies orthopnea Resp Denies cough, Denies dyspnea and Denies dyspnea on exertion GI Denies hematochezia and Denies change in stool character Musc Denies abnormal gait, Denies muscle cramps, Denies muscle weakness, Denies numbness, Denies radiating pain into limb and Denies tingling Neuro Denies abnormal gait, Denies dizziness, Denies syncope, Denies numbness, Denies tingling and Denies weakness Endo Denies palpitations Physical Exam Vital Signs: Last Vital Signs Pulse 70 11/15/22 12:57 BP 130/70 11/15/22 12:57 BMI result Body Mass Index 24.8 Const General: comfortable and no acute distress Orientation/consciousness: patient oriented x3 HEENT Other: Unremarkable Head: Yes normal to inspection Neck Neck: Yes normal visual inspection Chest Chest palpation & inspection: normal inspection of the chest Resp Auscultation: clear to auscultation bilaterally Cardio Palpation: normal PMI Heart sounds: S1 normal heart sound present, S2 normal heart sound present, no gallops, no murmurs and no rubs GI Palpation (GI): Soft to palpation Back/Spine/Pelvis Other: unremarkable Skin General skin exam: no rashes or lesions noted Neuro General: patient oriented x3 Extrem General: Yes normal to inspection Psych Mental Status: mental status grossly normal Office Procedures EKG Details: EKG with sinus rhythm at 70/Min; occasional PVCs; cannot exclude old inferior infarct; PVC. [place] [address]-Isetlaqgarvjrgmlm, Complete Assessment & Plan Assessment & Plan (1) Atrial arrhythmia: Code(s): I49.8 - Other specified cardiac arrhythmias Plan: Suspected to be some combination of atrial tachycardia, flutter, fibrillation. These were mainly seen during hospitalization for acute issues like lobectomy, pulmonary embolus among others. Seems stable recently. Continue beta-blockers. Continue anticoagulation. (2) Hypertension, essential: Code(s): I10 - Essential (primary) hypertension Plan: On amlodipine. Stable. (3) Type 2 diabetes mellitus with unspecified complications: Code(s): E11.8 - Type 2 diabetes mellitus with unspecified complications Plan: He is on metformin and insulin. Last HbA1c 6.7%. Coding Level of Care Code Est Pt Level 4 (12133) Diagnoses Atrial arrhythmia I49.8 Hypertension, essential I10 Type 2 diabetes mellitus with unspecified complications E11.8 CPT Codes EKG - CPT: 74758-Byvjgrjehgeeyhsbq, Complete ([id number])
== END 2022-11-15 13:14 | disposition home or self-care (01) ==
PROVIDERS: PCP Internal Medicine; Referring Provider Internal Medicine; Visit Provider Internal Medicine
DX: I49.8 Other specified cardiac arrhythmias (principal); I10 Essential (primary) hypertension; E11.8 Type 2 diabetes mellitus with unspecified complications
CPT/HCPCS: 93010; 99214

== ENCOUNTER → 2022-11-15 12:51 | Outpatient (BNVA) | payer MEDICARE, SELFPAY | PROVIDERS: PCP Internal Medicine; Referring Provider Internal Medicine; Visit Provider Internal Medicine | DX: I49.8 Other specified cardiac arrhythmias (principal); I10 Essential (primary) hypertension; E11.8 Type 2 diabetes mellitus with unspecified complications | CPT/HCPCS: 93005; 99212 ==

== ENCOUNTER 2022-11-16 13:18 | Outpatient (REF) | payer MEDICARE, SELFPAY ==
--- NOTE | ~2022-11-16 | US_ITS ---
EXAMINATION: US EXTRACRANIAL CAROTID DUPLEX, BILATERAL CLINICAL INFORMATION: Carotid bruit. COMPARISON: None available. TECHNIQUE: Real-time ultrasound and Doppler techniques (integrating B-mode 2-D vascular images, Doppler spectral analysis and color-flow Doppler imaging) were utilized to interrogate the extracranial carotid arteries, the vertebral arteries and proximal subclavian arteries bilaterally. The degree of stenosis is determined by criteria similar to NASCET. FINDINGS: RIGHT SIDE: 1. There is moderate atherosclerotic plaque seen in the bifurcation/proximal ICA region. 2. The common carotid artery PSV proximally is 54 cm/s and distally 53 cm/s. 3. The proximal internal carotid artery velocities are 59 cm/s systolic and 18 cm/s diastolic. 4. The proximal external carotid artery PSV is 78 cm/s. 5. The vertebral artery shows antegrade flow. 6. The subclavian artery waveforms are normal. LEFT SIDE: 1. There is mild atherosclerotic plaque seen in the bifurcation/proximal ICA region. 2. The common carotid artery PSV proximally is 123 cm/s and distally 96 cm/s. 3. The proximal internal carotid artery velocities are 77 cm/s systolic and 23 cm/s diastolic. 4. The proximal external carotid artery PSV is 114 cm/s. 5. The vertebral artery shows antegrade flow. 6. The subclavian artery waveforms are normal. US/US carotid duplex BI IMPRESSION: 1. RIGHT: Minimal, non-hemodynamically significant stenosis of the proximal right internal carotid artery corresponding to a 0-49% stenosis by velocity criteria. 2. LEFT: Minimal, non-hemodynamically significant stenosis of the proximal left internal carotid artery corresponding to a 0-49% stenosis by velocity criteria.
[2022-11-16 14:50] LABS: MANUAL DIFF FLAG NO
[2022-11-16 15:30] LABS: Basophils Absolute Auto 0.1 X10*3/uL (0.0-0.2); Basophils Percent Auto 0.7 % (0-2); Eosinophils Absolute Auto 0.2 X10*3/uL (0.0-0.4); Eosinophils Percent Auto 3.1 % (0-4); Hematocrit 46.4 % (42.0-52.0); Hemoglobin 15.2 g/dl (14.0-18.0); Imm Gran Abs Auto 0.03 X10*3/uL (0.00-0.03); Imm Gran Pct Auto 0.4 % (0.0-0.4); Lymphocytes Absolute Auto 1.7 X10*3/uL (1.2-4.9); Lymphocytes Percent Auto 22.6 % (20-40); Mean Corpuscular HGB Conc 32.8 g/dl (31.0-36.0); Mean Corpuscular Hemoglobin 27.8 pg (27.0-33.0); Mean Platelet Volume 10.7 fL (9.4-12.4); Monocytes Absolute Auto 0.6 X10*3/uL (0.1-1.2); Monocytes Percent Auto 8.4 % (2-11); Neutrophils Absolute Auto 4.9 x10*3/uL (2.0-8.3); Neutrophils Percent Auto 64.8 % (45-73); Platelet Count 155 X10*3/uL (160-400); Red Blood Count 5.46 X10*6/uL (4.60-5.80); Red Cell Distribution Width 13.1 % (11.0-16.0); White Blood Count 7.5 X10*3/uL (4.8-10.8)
[2022-11-16 15:45] LABS: Estimated Average Glucose 117 mg/dL; Hemoglobin A1c % 5.7 %
[2022-11-16 17:16] LABS: Alanine Aminotransferase 17 U/L (0-40); Albumin Level 4.1 g/dL (3.5-5.0); Alkaline Phosphatase 86 U/L (39-117); Anion Gap 14 (12-20); Aspartate Amino Transferase 18 U/L (5-37); Bilirubin Total 0.6 mg/dL (0.0-1.0); Blood Urea Nitrogen 17 mg/dL (9-16); Calcium 9.8 mg/dL (8.4-10.2); Carbon Dioxide 27 mmol/L (22-29); Chloride 105 mmol/L (96-108); Estimated Glomerular Filt Rate > 60; Glucose Fasting 111 mg/dL (60-99); Potassium 4.2 mmol/L (3.3-5.1); Sodium 142 mmol/L (135-145)
== END 2022-11-16 13:19 | disposition home or self-care (01) ==
LOC: HO.LAB 13:18
PROVIDERS: PCP Internal Medicine; Visit Provider Internal Medicine
DX: R09.89 Other specified symptoms and signs involving the circulatory and respiratory systems (principal); I48.0 Paroxysmal atrial fibrillation; I10 Essential (primary) hypertension; E11.9 Type 2 diabetes mellitus without complications
CPT/HCPCS: 36415; 80053; 83036; 85025; 93880

== ENCOUNTER 2022-11-16 13:38 | Outpatient (REF) | payer MEDICARE, SELFPAY | END 2022-11-16 13:39 | disposition home or self-care (01) | LOC: HO.US 13:38 | PROVIDERS: Visit Provider Internal Medicine | DX: Z13.89 Encounter for screening for other disorder (principal) ==

== ENCOUNTER 2022-11-21 14:26 | Outpatient (REF) | payer MEDICARE, SELFPAY ==
[2022-11-22 02:48] LABS: Creatinine Urine 54.06 mg/dL; Microalbumin Urine < 5.0 mg/L
== END 2022-11-21 14:27 | disposition home or self-care (01) ==
LOC: HO.LNP 14:26
PROVIDERS: Visit Provider Internal Medicine
DX: E11.9 Type 2 diabetes mellitus without complications (principal); I48.0 Paroxysmal atrial fibrillation; I10 Essential (primary) hypertension
CPT/HCPCS: 82043

== ENCOUNTER 2023-05-17 11:21 | Outpatient (REF) | payer MEDICARE, SELFPAY ==
[2023-05-17 11:36] LABS: MANUAL DIFF FLAG NO
[2023-05-17 11:41] LABS: Basophils Absolute Auto 0.1 X10*3/uL (0.0-0.2); Basophils Percent Auto 0.7 % (0-2); Eosinophils Absolute Auto 0.2 X10*3/uL (0.0-0.4); Hematocrit 46.7 % (42.0-52.0); Hemoglobin 15.5 g/dl (14.0-18.0); Imm Gran Abs Auto 0.03 X10*3/uL (0.00-0.03); Imm Gran Pct Auto 0.4 % (0.0-0.4); Lymphocytes Absolute Auto 2.1 X10*3/uL (1.2-4.9); Lymphocytes Percent Auto 25.9 % (20-40); Mean Corpuscular HGB Conc 33.2 g/dl (31.0-36.0); Mean Corpuscular Hemoglobin 27.7 pg (27.0-33.0); Mean Corpuscular Volume 83.5 fL (80.0-98.0); Mean Platelet Volume 9.9 fL (9.4-12.4); Monocytes Absolute Auto 0.6 X10*3/uL (0.1-1.2); Monocytes Percent Auto 7.1 % (2-11); Neutrophils Absolute Auto 5.1 x10*3/uL (2.0-8.3); Neutrophils Percent Auto 62.9 % (45-73); Platelet Count 246 X10*3/uL (160-400); Red Blood Count 5.59 X10*6/uL (4.60-5.80); Red Cell Distribution Width 13.2 % (11.0-16.0); White Blood Count 8.1 X10*3/uL (4.8-10.8)
[2023-05-17 12:04] LABS: Estimated Average Glucose 123 mg/dL; Hemoglobin A1c % 5.9 % (<6.0)
[2023-05-17 12:15] LABS: Appearance Urine Clear; Color Urine Yellow; Glucose Urine UA Negative (Negative); Leukocyte Esterase Urine Negative (Negative); Nitrite Urine Negative (Negative); Specific Gravity - Urine <= 1.005 (1.005-1.025); Urine Blood Negative (Negative); Urine Ketones Negative (Negative); Urine Protein Negative (Neg-Trace)
[2023-05-17 12:57] LABS: Prostate Specific Antigen Scr 5.01 ng/mL (<0.05-4.0)
[2023-05-17 13:01] LABS: Alanine Aminotransferase 16 U/L (0-40); Albumin Level 4.1 g/dL (3.5-5.0); Alkaline Phosphatase 105 U/L (39-117); Anion Gap 14 (12-20); Aspartate Amino Transferase 18 U/L (5-37); Bilirubin Total 0.5 mg/dL (0.0-1.0); Blood Urea Nitrogen 15 mg/dL (9-16); Calcium 9.8 mg/dL (8.4-10.2); Carbon Dioxide 30 mmol/L (22-29); Chloride 102 mmol/L (96-108); Cholesterol 165 mg/dL (<200); Estimated Glomerular Filt Rate > 60; Glucose Fasting 105 mg/dL (60-99); HDL Cholesterol 37 mg/dL (>40); LDL Cholesterol Calculated 109 mg/dL (<100); Potassium 4.6 mmol/L (3.3-5.1); Sodium 141 mmol/L (135-145); Total Protein 7.5 g/dL (6.5-8.0); Triglycerides 96 mg/dL (<150)
[2023-05-17 13:04] LABS: Creatinine Urine 40.28 mg/dL; Microalbumin Urine < 5.0 mg/L
== END 2023-05-17 11:22 | disposition home or self-care (01) ==
LOC: HO.LAB 11:21
PROVIDERS: Absent Provider Internal Medicine Medical Oncology; PCP Internal Medicine; Visit Provider Internal Medicine
DX: Z12.5 Encounter for screening for malignant neoplasm of prostate (principal); E11.9 Type 2 diabetes mellitus without complications; N40.0 Benign prostatic hyperplasia without lower urinary tract symptoms; I10 Essential (primary) hypertension; Z79.4 Long term (current) use of insulin
CPT/HCPCS: 36415; 80053; 80061; 81003; 82043; 82570; 83036; 84153; 85025

== ENCOUNTER → 2023-06-14 13:16 | Outpatient (REF) | payer MEDICARE, SELFPAY ==
--- NOTE | 2023-06-14 13:20 | HM_ITS ---
Conclusion: 1. Patient was monitored for total period of 3 days 2. Baseline was normal sinus rhythm with average heart of 74 beats per minute 3. No significant pauses noted 4. Frequent PACs noted with total burden of 8.7% with frequent episodes of SVT, longest lasting 20 minutes and 49 seconds at 173 beats per minute 5. Frequent PVCs noted with total burden of 3.1% with 2 3 beat salvos at 128 beats per minute 6. Patient did not report any symptoms in the diary but marked the counter 2 times associated with sinus rhythm with PVCs MTDD
== END ==
LOC: HO.CARD 13:16
PROVIDERS: Visit Provider Internal Medicine
DX: I48.91 Unspecified atrial fibrillation (principal); I47.10 Supraventricular tachycardia, unspecified
CPT/HCPCS: 93242

== ENCOUNTER → 2023-06-14 13:20 | Outpatient (BNV) | payer MEDICARE, SELFPAY | PROVIDERS: Visit Provider Internal Medicine Cardiovascular Disease | DX: I49.1 Atrial premature depolarization (principal) | CPT/HCPCS: 93244 ==

== ENCOUNTER 2023-09-11 14:51 | Outpatient (AMB) | payer MEDICARE, SELFPAY ==
--- NOTE | 2023-09-11 15:02 | A.OFFVIS_ITS ---
Intake Visit Reasons: elevated PSA Intake Note: NEW Patient presents today to established treatment for Elevated PSA: Meds- Tamsulosin Allergies to Antibiotic- No Known Allergies Blood Thinner- None Post Void Residual: 131 mL Placement Coordinator Required: No Accompanied by: Self / Same As Patient Allergies No Known Allergies [No Known Allergies*] Allergy (Verified 09/11/23 15:03) Medication List - Last Reconciled 09/11/23 by Deion Berrios MD amlodipine 10 mg PO DAILY carvedilol 3.125 mg PO BID cholecalciferol (vitamin D3) 25 mcg PO DAILY finasteride (Proscar) 5 mg PO DAILY 90 days insulin degludec (Tresiba FlexTouch U-100 insulin) 36 units subcut DAILY insulin degludec units subcut metformin ER 500 mg PO BID pen needle, diabetic As directed rivaroxaban (Xarelto) 20 mg PO DAILY tamsulosin 0.8 mg PO DAILY HPI Comments Details: 09/11/23--Jah is an 87-year-old male who presents for evaluation for BPH and elevated PSA. H Htn, IDDM. He denies significant voiding symptoms. He denies dysuria or gross hematuria. He states he sleeps during the night and then between about 6 and about 10:00 he will get up about 3 times to use the bathroom to urinate and have a bowel movements. He is prescribed tamsulosin 0.8 mg daily. I have reviewed PSA results, 05/17/2023--5.01. Prostate exam mild to moderately enlarged no suspicious nodules palpated. UA- leukocytes negative, blood negative. Bladder scan PVR 131 mL. I have discussed a trial of Proscar 5 mg daily. Will further evaluate with renal/bladder ultrasound. Repeat PSA in 4 months. 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) USHA (obstructive sleep apnea) Type 2 diabetes mellitus Hypertension, essential Atrial fibrillation Pulmonary embolism, bilateral (~2016) Surgical History History of colonoscopy History of surgery on right wrist History of rotator cuff surgery History of brain surgery (~02/2017) History of lobectomy of lung (~04/2015) Family History Mother Breast cancer Myocardial infarction Father COPD (chronic obstructive pulmonary disease) Brother Myocardial infarction Social History Patient Tobacco Use Status: Former Tobacco user Review of Systems Const All systems reviewed & are unremarkable except as noted in HPI and below Reports no additional complaints Eyes Reports no additional complaints ENT Reports no additional complaints Card Reports no additional complaints Resp Reports no additional complaints GI Reports no additional complaints Reports as per HPI Musc Reports no additional complaints Skin/Breast Reports system reviewed and no additional complaints, except as documented Neuro Reports no additional complaints Psych Reports no additional complaints Endo Reports no additional complaints Marcial/Lymph Reports no additional complaints Aller/Immun Reports no additional complaints Physical Exam Const General: healthy appearing, no acute distress and well developed Orientation/consciousness: patient oriented x3 HEENT Head: Yes normocephalic and Yes atraumatic Eyes Conjunctivae: conjunctivae normal Neck Neck: Yes normal visual inspection Chest Chest palpation & inspection: normal inspection of the chest Resp Effort & Inspection: normal respiratory effort Cardio Rate: regular rate GI Inspection: Yes normal to inspection Palpation (GI): Soft to palpation Other: Prostate Exam: mild to moderately enlarged, no hard suspicious nodules palp'd Skin General skin exam: no rashes or lesions noted Neuro General: patient oriented x3 Extrem General: No pedal edema Psych Appearance: grossly normal Affect: normal affect Office Procedures Post Void Residual Post Residual Void Post Void Residual (PVR): 131 [id number] Void Residual by ultrasound Results AMB Urinalysis, Automated UA Leukoctes 0 [place]/uL Last Edit by TAYLOR Allred on 09/11/23 15:31 UA Nitrite Negative Last Edit by TAYLOR Allred on 09/11/23 15:31 UA Urobilinogen 0.2 mg/dL Last Edit by TAYLOR Allred on 09/11/23 15:3 1 UA Protein 15 mg/dL Last Edit by TAYLOR Allred on 09/11/23 15:31 UA pH 6.0 Last Edit by TAYLOR Allred on 09/11/23 15:31 UA Blood 0 True/uL Last Edit by TAYLOR Allred on 09/11/23 15:31 UA Specific [place] 1.015 Last Edit by TAYLOR Allred on 09/11/23 15: 31 UA Ketone Positive Last Edit by TAYLOR Allred on 09/11/23 15:31 5 mg/dL Jayleen Holder 09/11/23 15:31 UA Bilirubin 1 mg/dL Last Edit by TAYLOR Allred on 09/11/23 15:31 UA Glucose 0 mg/dL Last Edit by TAYLOR Allred on 09/11/23 15:31 Results Reviewed Results Reviewed: Laboratory Last Values Urine pH (Auto) 6.0 09/11/23 15:28 Specific [place] (Auto) 1.015 09/11/23 15:28 Urine Protein (Auto) 15 mg/dL 09/11/23 15:28 Glucose (UA)(Auto) 0 mg/dL 09/11/23 15:28 Urine Ketones (Auto) Positive 09/11/23 15:28 Urine Blood (Auto) 0 True/uL 09/11/23 15:28 Urine Nitrite (Auto) Negative 09/11/23 15:28 Urine Bilirubin (Auto) 1 mg/dL 09/11/23 15:28 Urine Urobilinogen (Auto) 0.2 mg/dL 09/11/23 15:28 Leukocyte Esterase (Auto) 0 [place]/uL 09/11/23 15:28 Assessment & Plan Assessment & Plan (1) Elevated PSA: Code(s): R97.20 - Elevated prostate specific antigen [PSA] Category: Medical (2) BPH with elevated PSA: Code(s): N40.0 - Benign prostatic hyperplasia without lower urinary tract symptoms; R9 7.20 - Elevated prostate specific antigen [PSA] Category: Medical Plan Proscar 5 mg daily. Will further evaluate with renal/bladder ultrasound. Repeat PSA in 4 months. Orders: Orders AMB Urinalysis Automated 09/11/23 Z13.9 - Encounter for screening, unspecified AMB Post Void Residual by ultrasound 09/11/23 N39.8 - Other specified disorders of urinary system US retroperitoneal comp 09/11/23 N40.0 - Benign prostatic hyperplasia without lower urinary tract symptoms, R97.20 - Elevated prostate specific antigen [PSA] Medications: New finasteride (Proscar) 5 mg PO DAILY 90 days 90 tabs 3RF Patient Instructions: The patient had an opportunity to ask questions regarding treatment plan. The patient expressed understanding and agreement with the above treatment plan. The patient is aware they should contact our office by phone for worsening of their current condition or the appearance of new symptoms. Compliance is encouraged with any medications and followup testing that is ordered. It is a privilege to be allowed the opportunity to participate in the urologic care of your patient. If you have any questions or concerns regarding treatment for the above conditions please do not hesitate to contact me. The office telephone contact is [phone]. This note is constructed in part using voice recognition software. While every effort has been made to ensure accuracy structures technician errors may have been included. Yours sincerely, Deion Berrios MD Coding Level of Care Code New Pt Level 4 (75199) Diagnoses Elevated PSA R97.20 BPH with elevated PSA N40.0; R97.20 CPT Codes Post Residual Void - PVR CPT Code: 43633-Fltw Void Residual by ultrasound ([id number])
== END 2023-09-11 16:09 | disposition home or self-care (01) ==
PROVIDERS: Visit Provider Urology
DX: R97.20 Elevated prostate specific antigen [PSA] (principal); N40.0 Benign prostatic hyperplasia without lower urinary tract symptoms
CPT/HCPCS: 99204

== ENCOUNTER → 2023-09-11 14:51 | Outpatient (BNVA) | payer MEDICARE, SELFPAY | PROVIDERS: Visit Provider Urology | DX: R97.20 Elevated prostate specific antigen [PSA] (principal); N40.0 Benign prostatic hyperplasia without lower urinary tract symptoms | CPT/HCPCS: 51798; 81003; 99202 ==

== ENCOUNTER 2023-09-20 13:20 | Outpatient (REF) | payer MEDICARE, SELFPAY ==
--- NOTE | ~2023-09-20 | US_ITS ---
EXAMINATION: US RETROPERITONEAL COMPLETE (RENAL) CLINICAL INFORMATION: Benign prostatic hyperplasia without lower urinary tract symptoms. COMPARISON: Renal ultrasound 05/31/2016. TECHNIQUE: Real-time imaging of the kidneys and bladder. FINDINGS: RIGHT KIDNEY: 10.5 x 5.2 x 5.2 cm (SAG x AP x TRV). The kidney is normal in size, contour, and echogenicity. Renal cortical thickness is normal. No renal calculi or hydronephrosis. A benign small upper pole 0.9 cm Bosniak class I renal cyst is noted which requires no additional imaging or follow up. No solid renal masses are seen. LEFT KIDNEY: 11.4 x 5.5 x 4.1 cm (SAG x AP x TRV). The kidney is normal in size, contour, and echogenicity. Renal cortical thickness is normal. No renal calculi or hydronephrosis. A benign small upper pole 0.9 cm Bosniak class I renal cyst is noted which requires no additional imaging or follow up. No solid renal masses are seen. BLADDER: The bladder is well distended with a thickened trabeculated wall with multiple diverticula seen the largest measuring 4.3 cm prevoid and 1.3 cm postvoid. Bilateral ureteral jets are demonstrated. Prevoid bladder volume is 415 mL. Postvoid bladder volume is 76.1 mL. ADDITIONAL FINDINGS: The prostate is enlarged at 44 mL. US/US retroperitoneal comp IMPRESSION: 1. Thickened trabeculated bladder wall with multiple diverticula and enlarged 44 mL prostate with 76 mL postvoid residual. 2. Normal-appearing kidneys.
== END 2023-09-20 13:21 | disposition home or self-care (01) ==
LOC: HO.US 13:20
PROVIDERS: PCP Internal Medicine; Visit Provider Urology
DX: N40.0 Benign prostatic hyperplasia without lower urinary tract symptoms (principal); R97.20 Elevated prostate specific antigen [PSA]
CPT/HCPCS: 76770

== ENCOUNTER 2023-11-27 13:00 | Outpatient (AMB) | payer MEDICARE, SELFPAY ==
--- NOTE | 2023-11-27 13:05 | A.OFFVIS_ITS ---
Vital Signs 11/27/23 13:06 Height 6 ft 1 in Weight 185 lb 10.067 oz BMI 24.5 BP 120/62 Blood Pressure Location Lt brachial Position Sitting Pulse 71 Pulse Source Monitor Intake Visit Reasons: 1 yr f/u Pneumatic Deicer Inspector Required: No Ramp And Cargo Supervisor: Ramp And Cargo Supervisor Present Allergies No Known Allergies [No Known Allergies*] Allergy (Verified 11/27/23 13:07) Medication List - Last Reconciled 11/27/23 by Mariella Charles NP-C amlodipine 10 mg PO DAILY carvedilol 3.125 mg PO BID cholecalciferol (vitamin D3) 25 mcg PO DAILY finasteride (Proscar) 5 mg PO DAILY 90 days insulin degludec units subcut insulin degludec (Tresiba FlexTouch U-100 insulin) 20 units subcut DAILY metformin ER 500 mg PO BID pen needle, diabetic As directed rivaroxaban (Xarelto) 20 mg PO DAILY tamsulosin 0.8 mg PO DAILY HPI HPI 1 yr f/u: Details: Jah is an 87-year-old male with past medical history of diabetes, hypertension, sleep apnea, lung cancer, atrial tachycardia/atrial fibrillation who presents for follow-up. Today he reports that he has been doing well since his last visit 1 year ago. He denies any hospitalizations or changes to his health. He exercises 6 days a week doing 1 mi on a treadmill and using weights. He tolerates these activities without any concerning symptoms beyond fatigue. Has no chest discomfort at rest or with activity. No heart palpitations, lightheadedness, presyncope, syncope, falls. No shortness of breath, PND, orthopnea or edema. No bleeding issues reported. Taking all meds as directed. 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) USHA (obstructive sleep apnea) Type 2 diabetes mellitus Hypertension, essential Atrial fibrillation Pulmonary embolism, bilateral (~2016) Surgical History History of colonoscopy History of surgery on right wrist History of rotator cuff surgery History of brain surgery (~02/2017) History of lobectomy of lung (~04/2015) Family History Mother Breast cancer Myocardial infarction Father COPD (chronic obstructive pulmonary disease) Brother Myocardial infarction Social History Patient Tobacco Use Status: Former Tobacco user Review of Systems Const All systems reviewed & are unremarkable except as noted in HPI and below Reports fatigue ENT Denies dizziness Card Denies chest pain, Denies chest pain at rest, Denies chest pain with activity, Denies rapid heart rate, Denies pedal edema, Denies edema, Denies leg edema, Denies lightheadedness, Denies palpitations, Denies dyspnea, Denies dyspnea on exertion and Denies orthopnea Resp Denies cough, Denies dyspnea and Denies dyspnea on exertion GI Denies hematochezia and Denies change in stool character Musc Denies abnormal gait, Reports limited range of motion, Reports muscle cramps, Denies muscle weakness, Denies numbness, Denies radiating pain into limb, Denies stiffness and Denies tingling Neuro Denies abnormal gait, Denies dizziness, Denies numbness and Denies tingling Endo Reports fatigue and Denies palpitations Physical Exam Vital Signs: Last Vital Signs Pulse 71 11/27/23 13:06 BP 120/62 11/27/23 13:06 BMI result Body Mass Index 24.5 Const General: cooperative, healthy appearing, comfortable and no acute distress Orientation/consciousness: patient oriented x3 Neck Neck: Yes normal visual inspection and Yes no JVD Resp Effort & Inspection: normal respiratory effort Auscultation: clear to auscultation bilaterally, no rales, no rhonchi and no wheezes Cardio Jugular venous distension: no JVD Rate: regular rate Rhythm: regular rhythm Heart sounds: S1 normal heart sound present, S2 normal heart sound present, no murmurs and no rubs Neuro General: patient oriented x3 Extrem General: Yes normal to inspection and No no pedal edema Psych Appearance: grossly normal Mental Status: mental status grossly normal Speech and movement: Normal speech and movement present Office Procedures EKG Details: Today, read by me, normal sinus rhythm with sinus arrhythmia, left axis deviation, inferior infarct, age undetermined, QTC 428 milliseconds, no significant change from prior EKG, rate 71 [id number], Complete Assessment & Plan Assessment & Plan (1) Atrial arrhythmia: Code(s): I49.8 - Other specified cardiac arrhythmias Category: Medical Plan: History of atrial tachycardia/atrial fibrillation. He has been on carvedilol for heart rate control. He is on Xarelto for anticoagulation. No recent reports of heart palpitations. EKG done today showing normal sinus rhythm with sinus arrhythmia, left axis deviation, inferior Q-waves, unchanged from prior EKG, rate 71. A Holter monitor was done on 06/14/2023 for 3 days showed sinus rhythm with average heart rate 74 beats per minute, frequent PACs 8.7% with episodes of SVT longest 20 minutes 49 seconds at rate of 173, frequent PVCs 3.1% with two 3 beat salvos at 128 beats per minute, no reported symptoms but marked the counter 2 times associated with sinus rhythm with PVC. Last echocardiogram 10/17/2019 showed normal EF, normal RV and normal valves. He is on carvedilol 3.125 mg b.i.d, and reports compliance. At this time will have him increase carvedilol up to 6.25 mg b.i.d.. Will reduce amlodipine from 10 mg daily down to 5 mg daily. Will arrange for an office blood pressure and pulse check in a few weeks. No bleeding issues reported. Labs done on 05/17/2023 showed creatinine 0.99, GFR greater than 60. Continue Xarelto. Instructed to call the office if he is having any concerning heart palpitations. Cardiology office visit in 1 year, sooner if needed. (2) Atrial fibrillation: Code(s): I48.91 - Unspecified atrial fibrillation Category: Medical Plan: As above (3) Hypertension, essential: Code(s): I10 - Essential (primary) hypertension Category: Medical Plan: Well controlled at this time. Med adjustment as above to help control atrial arrhythmias. Plan Time spent on chart review, documentation, interview and assessment Coding Level of Care Code Est Pt Level 4 (64535) Diagnoses Atrial arrhythmia I49.8 Atrial fibrillation I48.91 Hypertension, essential I10 CPT Codes EKG - CPT: 26164-[id number], Complete ([id number]) Time Spent (min) 30
[2023-11-27 13:06] VITALS: BP 120/62; PULSE 71; BMI 24.5
== END 2023-11-27 13:45 | disposition home or self-care (01) ==
PROVIDERS: PCP Internal Medicine; Visit Provider Nurse Practitioner Family
DX: I49.8 Other specified cardiac arrhythmias (principal); I48.91 Unspecified atrial fibrillation; I10 Essential (primary) hypertension
CPT/HCPCS: 93010; 99214

== ENCOUNTER → 2023-11-27 13:00 | Outpatient (BNVA) | payer MEDICARE, SELFPAY | PROVIDERS: PCP Internal Medicine; Visit Provider Nurse Practitioner Family | DX: I10 Essential (primary) hypertension (principal); I49.8 Other specified cardiac arrhythmias; I48.91 Unspecified atrial fibrillation; G47.30 Sleep apnea, unspecified; Z85.118 Personal history of other malignant neoplasm of bronchus and lung | CPT/HCPCS: 93005; 99212 ==

== ENCOUNTER → 2023-12-28 12:41 | Outpatient (BNVA) | payer MEDICARE, SELFPAY | PROVIDERS: PCP Internal Medicine; Visit Provider Nurse Practitioner Family ==

== ENCOUNTER 2024-02-12 13:26 | Outpatient (REF) | payer MEDICARE, SELFPAY ==
--- NOTE | ~2024-02-12 | XR_ITS ---
EXAMINATION: XR LUMBOSACRAL SPINE CLINICAL INFORMATION: Back pain. COMPARISON: Lumbar spine radiographs dated 09/12/2018. TECHNIQUE: Three views of the lumbosacral spine. FINDINGS: Mild levocurvature of the lumbar spine, unchanged. The lumbar lordosis is maintained. No acute fracture or subluxation. No loss of vertebral body height. Multilevel loss of intervertebral disc height with endplate osteophytes, most prominent at L4-L5, unchanged. Bilateral lower lumbar spine facet arthropathy is unchanged. No concerning lytic or blastic osseous lesion. Atherosclerotic calcifications. XR/XR lumbar spine 2-3V IMPRESSION: Multilevel degenerative disc disease, most prominent at L4-L5, unchanged. Electronically signed by: Jesus Manuel Britton MD 02/12/2024 04:01 PM [facility]
--- NOTE | ~2024-02-12 | XR_ITS ---
EXAMINATION: XR CHEST CLINICAL INFORMATION: Smoker. COMPARISON: CT chest dated 09/20/2021. TECHNIQUE: 2 views of the chest were obtained. FINDINGS: The lungs are clear. The cardiomediastinal silhouette is normal in size. There is no pleural effusion or pneumothorax. No acute osseous abnormality. XR/XR chest 2V IMPRESSION: No acute cardiopulmonary findings. Electronically signed by: Jesus Manuel Britton MD 02/12/2024 03:25 PM [facility]
== END 2024-02-12 13:27 | disposition home or self-care (01) ==
LOC: HO.XRAY 13:26
PROVIDERS: Absent Provider Internal Medicine Medical Oncology; PCP Internal Medicine; Visit Provider Internal Medicine
DX: M54.9 Dorsalgia, unspecified (principal); Z79.891 Long term (current) use of opiate analgesic; C34.90 Malignant neoplasm of unspecified part of unspecified bronchus or lung
CPT/HCPCS: 71046; 72100

== ENCOUNTER 2024-02-28 08:00 | Outpatient (REF) | payer MEDICARE, SELFPAY ==
[2024-02-28 08:28] LABS: MANUAL DIFF FLAG NO
[2024-02-28 08:53] LABS: Basophils Absolute Auto 0.1 X10*3/uL (0.0-0.2); Basophils Percent Auto 0.8 % (0-2); Eosinophils Absolute Auto 0.3 X10*3/uL (0.0-0.4); Eosinophils Percent Auto 4.5 % (0-4); Hematocrit 45.1 % (42.0-52.0); Hemoglobin 15.1 g/dl (14.0-18.0); Imm Gran Abs Auto 0.02 X10*3/uL (0.00-0.03); Imm Gran Pct Auto 0.3 % (0.0-0.4); Lymphocytes Absolute Auto 1.3 X10*3/uL (1.2-4.9); Lymphocytes Percent Auto 18.1 % (20-40); Mean Corpuscular HGB Conc 33.5 g/dl (31.0-36.0); Mean Corpuscular Hemoglobin 27.9 pg (27.0-33.0); Mean Corpuscular Volume 83.2 fL (80.0-98.0); Mean Platelet Volume 10.4 fL (9.4-12.4); Monocytes Absolute Auto 0.6 X10*3/uL (0.1-1.2); Neutrophils Absolute Auto 4.8 x10*3/uL (2.0-8.3); Neutrophils Percent Auto 67.3 % (45-73); Platelet Count 150 X10*3/uL (160-400); Red Blood Count 5.42 X10*6/uL (4.60-5.80); Red Cell Distribution Width 12.8 % (11.0-16.0); White Blood Count 7.1 X10*3/uL (4.8-10.8)
[2024-02-28 09:00] LABS: Appearance Urine Clear; Color Urine Yellow; Glucose Urine UA Negative (Negative); Leukocyte Esterase Urine Negative (Negative); Nitrite Urine Negative (Negative); Specific Gravity - Urine 1.015 (1.005-1.025); Urine Blood Negative (Negative); Urine Ketones Negative (Negative); Urine Protein Negative (Neg-Trace)
[2024-02-28 09:02] LABS: Estimated Average Glucose 137 mg/dL; Hemoglobin A1C 181.2982 umol/L; Hemoglobin A1c % 6.4 % (<6.0); Total Hemoglobin (HGBA1C) 3942.6864 umol/L
[2024-02-28 09:30] LABS: Creatinine Urine 107.86 mg/dL; Microalbum/Creatinine Ratio Ur 21.3 ug/mg cr (<30)
[2024-02-28 09:36] LABS: Alanine Aminotransferase 21 U/L (0-40); Albumin Level 4.1 g/dL (3.5-5.0); Alkaline Phosphatase 111 U/L (39-117); Anion Gap 12 (12-20); Aspartate Amino Transferase 26 U/L (5-37); Bilirubin Total 0.5 mg/dL (0.0-1.0); Blood Urea Nitrogen 16 mg/dL (9-16); Calcium 8.9 mg/dL (8.4-10.2); Carbon Dioxide 31 mmol/L (22-29); Chloride 103 mmol/L (96-108); Cholesterol 138 mg/dL (<200); Estimated Glomerular Filt Rate > 60; Glucose Fasting 150 mg/dL (60-99); HDL Cholesterol 31 mg/dL (>40); LDL Cholesterol Calculated 87 mg/dL (<100); Potassium 4.5 mmol/L (3.3-5.1); Sodium 141 mmol/L (135-145); Total Protein 6.9 g/dL (6.5-8.0); Triglycerides 100 mg/dL (<150)
[2024-02-28 09:56] LABS: Prostate Specific Antigen 1.51 ng/mL (<0.05-4.0)
== END 2024-02-28 08:01 | disposition home or self-care (01) ==
LOC: HO.LAB 08:00
PROVIDERS: Absent Provider Internal Medicine; PCP Internal Medicine; Visit Provider Urology
DX: E11.9 Type 2 diabetes mellitus without complications (principal); I48.91 Unspecified atrial fibrillation; I10 Essential (primary) hypertension; E78.00 Pure hypercholesterolemia, unspecified; Z79.4 Long term (current) use of insulin; Z12.5 Encounter for screening for malignant neoplasm of prostate
CPT/HCPCS: 36415; 80053; 80061; 81003; 82043; 82570; 83036; 84153; 85025

== ENCOUNTER 2024-04-11 15:17 | Outpatient (AMB) | payer MEDICARE, SELFPAY ==
--- NOTE | 2024-04-10 20:21 | MHC.OFFVIS ---
Intake Visit Reasons: US/PSA Intake Note: Patient is present for US/PSA Urology Medication:FINASTERIDE,TAMSULOSIN Antibiotic Allergy:NONE Blood Thinner:RIVAROXABAN TODAY'S PVR: 0ML'S Filling Machine Tender Required: No Allergies No Known Allergies [No Known Allergies*] Allergy (Verified 04/11/24 15:26) Medication List - Last Reconciled 04/11/24 by Deion Berrios MD amlodipine 5 mg PO DAILY carvedilol 6.25 mg PO BID 90 days cholecalciferol (vitamin D3) 25 mcg PO DAILY finasteride (Proscar) 5 mg PO DAILY 90 days insulin degludec units subcut insulin degludec (Tresiba FlexTouch U-100 insulin) 20 units subcut DAILY metformin ER 500 mg PO BID pen needle, diabetic As directed rivaroxaban (Xarelto) 20 mg PO DAILY tamsulosin 0.8 mg PO DAILY HPI Comments Details: 04/11/24--Jah is an 88-year-old male who presents for evaluation for BPH and elevated PSA. PMH Htn, IDDM. He is prescribed tamsulosin 0.8 mg daily. I have discussed a trial of Proscar 5 mg daily and further evaluation with renal/bladder ultrasound. And Repeat PSA in 4 months. I reviewed results--Renal US 09/20/23-- Kidneys WNL, trabeculated bladder. PSA--02/28/24--1.51--(PSA 05/17/03--5.01). Will cont tamsulosin and proscar. FU in 9 months Review of chart: 09/11/23--Jah is an 87-year-old male who presents for evaluation for BPH and elevated PSA. PMH Htn, IDDM. He denies significant voiding symptoms. He denies dysuria or gross hematuria. He states he sleeps during the night and then between about 6 and about 10:00 he will get up about 3 times to use the bathroom to urinate and have a bowel movements. He is prescribed tamsulosin 0.8 mg daily. I have reviewed PSA results, 05/17/2023--5.01. Prostate exam mild to moderately enlarged no suspicious nodules palpated. UA- leukocytes negative, blood negative. Bladder scan PVR 131 mL. I have discussed a trial of Proscar 5 mg daily. Will further evaluate with renal/bladder ultrasound. Repeat PSA in 4 months. 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) USHA (obstructive sleep apnea) Type 2 diabetes mellitus Hypertension, essential Atrial fibrillation Pulmonary embolism, bilateral (~2017) Surgical History History of colonoscopy History of surgery on right wrist History of rotator cuff surgery History of brain surgery (~02/2017) History of lobectomy of lung (~04/2015) Family History Mother Breast cancer Myocardial infarction Father COPD (chronic obstructive pulmonary disease) Brother Myocardial infarction Social History Patient Tobacco Use Status: Former Tobacco user Review of Systems Const All systems reviewed & are unremarkable except as noted in HPI and below Reports no additional complaints Eyes Reports no additional complaints ENT Reports no additional complaints Card Reports no additional complaints Resp Reports no additional complaints GI Reports no additional complaints Reports as per HPI Musc Reports no additional complaints Skin/Breast Reports system reviewed and no additional complaints, except as documented Neuro Reports no additional complaints Psych Reports no additional complaints Endo Reports no additional complaints Marcial/Lymph Reports no additional complaints Aller/Immun Reports no additional complaints Office Procedures Post Void Residual Post Residual Void Post Void Residual (PVR): 0 75513-Nowh Void Residual by ultrasound Results Reviewed Results Reviewed: Date of Service: 09/20/23 : US RETROPERITONEAL COMPLETE (RENAL) CLINICAL INFORMATION: Benign prostatic hyperplasia without lower urinary tract symptoms. COMPARISON: Renal ultrasound 05/31/2016. TECHNIQUE: Real-time imaging of the kidneys and bladder. FINDINGS: RIGHT KIDNEY: 10.5 x 5.2 x 5.2 cm (SAG x AP x TRV). The kidney is normal in size, contour, and echogenicity. Renal cortical thickness is normal. No renal calculi or hydronephrosis. A benign small upper pole 0.9 cm Bosniak class I renal cyst is noted which requires no additional imaging or follow up. No solid renal masses are seen. LEFT KIDNEY: 11.4 x 5.5 x 4.1 cm (SAG x AP x TRV). The kidney is normal in size, contour, and echogenicity. Renal cortical thickness is normal. No renal calculi or hydronephrosis. A benign small upper pole 0.9 cm Bosniak class I renal cyst is noted which requires no additional imaging or follow up. No solid renal masses are seen. BLADDER: The bladder is well distended with a thickened trabeculated wall with multiple diverticula seen the largest measuring 4.3 cm prevoid and 1.3 cm postvoid. Bilateral ureteral jets are demonstrated. Prevoid bladder volume is 415 mL. Postvoid bladder volume is 76.1 mL. ADDITIONAL FINDINGS: The prostate is enlarged at 44 mL. IMPRESSION: 1. Thickened trabeculated bladder wall with multiple diverticula and enlarged 44 mL prostate with 76 mL postvoid residual. 2. Normal-appearing kidneys. Assessment & Plan Assessment & Plan (1) Elevated PSA: Code(s): R97.20 - Elevated prostate specific antigen [PSA] Category: Medical (2) BPH with elevated PSA: Code(s): N40.0 - Benign prostatic hyperplasia without lower urinary tract symptoms; R97.20 - Elevated prostate specific antigen [PSA] Category: Medical Plan Proscar 5 mg daily. Cont tamsulosin 0.8 mg Repeat PSA in 9 months. Orders: Orders PSA,Total (Free>4and<10) 8 Months N40.0 - Benign prostatic hyperplasia without lower urinary tract symptoms, R97.20 - Elevated prostate specific antigen [PSA] AMB Urinalysis Automated Today Z13.9 - Encounter for screening, unspecified Medications: Refilled finasteride (Proscar) 5 mg PO DAILY 90 days 90 tabs 3RF Patient Instructions: The patient had an opportunity to ask questions regarding treatment plan. The patient expressed understanding and agreement with the above treatment plan. The patient is aware they should contact our office by phone for worsening of their current condition or the appearance of new symptoms. Compliance is encouraged with any medications and followup testing that is ordered. It is a privilege to be allowed the opportunity to participate in the urologic care of your patient. If you have any questions or concerns regarding treatment for the above conditions please do not hesitate to contact me. The office telephone contact is [phone]. This note is constructed in part using voice recognition software. While every effort has been made to ensure accuracy cutting room supervisor errors may have been included. Yours sincerely, Deion Berrios MD Coding Level of Care Code Est Pt Level 3 (21996) Diagnoses Elevated PSA R97.20 BPH with elevated PSA N40.0; R97.20 CPT Codes Post Residual Void - PVR CPT Code: 12740-Caqh Void Residual by ultrasound ([id number])
--- OUTSIDE RECORDS SUMMARY | 2024-04-11 16:46 | XMS_ITS ---
Author Organization Gregory Cleveland III, MD Address [address] [place] [address] [place] [address] Care Team Providers Care Chief Wellness Officer Name Role Phone Javier Rosales MD Primary Care Provider Unavaila Gregory Tan [phone] REASON FOR VISIT Re:Patient Experience Survey 2020 Encounters Encounter Location Date Provider Diagnosis Gregory Cleveland III, MD [address] [place] [address] [address] [facility] [place] [address] 06/23/2023 Gregory Cleveland Plan Of Treatment Next Appt Details Provider Name:Gregory Cleveland, 09/23/2024 03:00:00 PM, [address] [place] [address] [place], [address], Progress Notes * Jah CURTIS EDOB:09/1935 (87 yo M)Acc No.[id number]:06/23/2023 Patient:?Jah Curtis :1935???Age:87 Y???Sex:Male Address:[address] [place] [address] * true * Date:? Generated for Printi ng/Favenkatag/eTransmitting on:?04/11/2024 04:45 PM EST
--- OUTSIDE RECORDS SUMMARY | 2024-04-11 16:46 | XMS_ITS ---
Author Organization Gregory Cleveland III, MD Address [address] [facility] [place] [address] Care Team Providers Care Contract Clerk Automobile Name Role Phone Javier Rosales MD Primary Care Provider Gregory Kuo Unavailable [phone] Allergies Allergen (clinical drug ingredient) Drug/Non Drug [...] Date Provider Diagnosis Gregory Cleveland III, MD [address] [place] [address] [address] [place], [place] [address] 09/18/2023 Gregory Cleveland Former smoker Z87.89 1 [...] Reason: ov review cxr Provider Name:Gregory Cleveland, 09/23/2024 03:00:00 PM, [address] [place] [address] [place] [facility], [address], Progress Notes * Jah CURTIS EDOB:09/1935 (87 yo M)Acc No.[id number]:09/18/2023 Progress Notes Patient:?Jah Curtis Provider:?Gregory Cleveland MD :1935???Age:87 Y???Sex:Male Maged e:09/18/2023 Address:[facility] [id number] Pcp:Javier Rosales MD Subjective: * Chief Complaints: * ???Non-small cell lung cance r with brain metastasesDiabetesHypertensionCOPDBenign prostatic hypertrophy * HPI: ???COVID-19 Screening:?Questions?Have you experienced fever, chills, cough, sore throat, shortness of breath, difficulty breathing, muscle aches, loss of taste or smell??No ?Have you been exposed to the virus within the last 10 days??No ?Have you travelled internationally in the last 10 days??No ?Have you been exposed to COVID-19 in the past??No ? He reports that the previously reported gastrointestinal issues and chest pain have resolved. He is feeling much better. He got a prescription from a urologist for prostatism. His breathing is stable and he has no headaches. * ROS:?General/Constitutional:?pain?only normal aches and pains.?Chills?denies.?Fatigue?admits.?Fever?denies.?ENT:?Decreased hearing?denies.?Respiratory:?Cough?denies.?Cardiovascular:?Chest pain with exertion?denies.?Dyspnea on exertion?denies.?Shortness of breath?denies.?Gastrointestinal:?Constipation?occasional.?Decreased appetite?denies.?Diarrhea?denies.?Heartburn?denies.?Nausea?denies.?Rectal bleeding?denies.?Vomiting?denies.?Hematology:?bruising?denies.?petechiae?denies.?Swollen glands?none have been noted.?Genitourinary:?Frequent urination?twice a night.?Musculoskeletal:?Muscle aches?denies.?Painful joints?denies.?Sciatica?denies.?Weakness?denies.?Skin:?Itching?denies.?Rash?denies.?Skin lesion(s)?denies.?Neurologic:?Difficulty speaking?denies.?Dizziness?denies.?Headache?denies.?Low back pain?denies.?Psychiatric:?Depressed mood?denies.? * Medical History:? * Surgical History:?right rota tor cuff surgery oral surgery right upper lobectomy stage IIA adenocarcinoma of the lung 2014 * Hospitalization/Major Diagno stic Procedure:?Denies Past Hospitalization * Family History:?Father: dece ased 72 yrs, emphysema.?Mother: 41 yrs, CAD, myocardial infarction.?2 brother(s) . 2 son(s) , 1 daughter(s) - healthy. .? One brother is alive and well. One brother of a myocardial infarction. There is no family history of cancer. * Social History:?Tobacco Use:?Tobacco Use/Smoking?Patient is a?former smoker ?How long has it been since you last smoked??> 10 years ?Additional Findings: Tobacco Non-User?Ex-cigarette smoker ???He was born in [facility]. He is but and his lives in [place]. He has 2 sons and 1 daughter and no grandchildren. 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 * Medications:?TakingStool Sof tener Xarelto 20 MG Tablet 1 tablet Orally [...] reviewed and reconciled with the patient * Allergies:?No Known Drug All ergyno[Allergies Verified] Objective: * Vitals:?Ht: 71, Wt:185, BMI: 25.8, BP:130/71, HR:67, Temp:97.9, Wt-k.91. * Examination: ???General Examination: ?GENERAL APPEARANCE:?pleasant, well nourished, well developed, in no acute distress, calm and relaxed , overweight , , elderly man.?HEAD:?atraumatic, normocephalic.?EYES:?eomi, perrla, anicteric, conjugate.?EARS:?normal.?NOSE:?septum intact.?ORAL CAVITY:?normal, unremarkable.?NECK/THYROID:?no jugular venous distention, no carotid bruit, thyroid normal.?LYMPH NODES:?no enlarged lymph nodes,spleen normal.?SKIN:?no suspicious lesions, anicteric.?HEART:?no clicks, gallops, murmurs, or rubs, regular rhythm, S1, S2 normal, no s3, or vascular bruits.?LUNGS:?clear to auscultation , diminished breath sounds throughout , no wheezes, rales, rhonchi , good air movement.?BREASTS:??no masses palpable bilaterally.?ABDOMEN:?bowel sounds normal, no ascites, no organomegaly, no mass.?RECTAL EXAM:?not examined.?MUSCULOSKELETAL:?extremities unremarkable, no clubbing, cyanosis or edema.?PERIPHERAL PULSES:?normal.?NEUROLOGIC:?alert and oriented, cranial nerves 2-12 grossly intact, deep tendon reflexes 2+ symmetrical, motor strength normal upper and lower extremities, sensory exam intact.?PSYCH:?alert, oriented.? Assessment: * Assessment: 1.?Former smoker - Z87.891 ( Primary), He has a plan to prevent relapse in times of stress and illness. He is highly motivated not to smoke.?2.?Non-small cell carcinoma of lung - C34.90, He remains free of recurrent disease with a normal mental status.?3.?HTN (hypertension) - I10, His blood pressure is stable at 106/56 and into normal range today. I recommended sodium restriction, weight loss, but made no change in his medications.?4.?Rotator cuff tear - M75.100, The pain is stable but he does not wish to have any treatment at this time.?5.?COPD (chronic obstructive pulmonary disease) - J44.9, He is mildly symptomatic, but able to conduct all of the activities of daily life without supplemental oxygen.?6.?Ureterolithiasis - N20.1, He has had no episodes of renal colic. Since his last visit. He has had no hematuria or dysuria.?7.?Cholelithiasis - K80.20, There is no right upper quadrant tenderness and he feels well today. His diet is unrestricted. His appetite is good?8.?Paroxysmal atrial fibrillation - I48.0, He was in sinus rhythm today with no symptoms. 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 He has had no recurrent DVT or pulmonary emboli. His breathing is unremarkable today. He suffered a deep venous thrombosis of his right lower extremity with bilateral pulmonary emboli in March of 2017. He has been anticoagulated since.?10.?Overweight - E66.3, His body mass index is 26.6 and he has lost several pounds. I recommend a gradual weight loss until about a mass index is in the normal range. We discussed the elements of a weight loss diabetic diet.? Plan: * Treatment: 2.?Non-small cell carcinoma of lung?Imaging: XR CHEST 2 VIEW PA & LAT * Procedure Codes:? * Preventive Medicine:? ??Counseling:?Care goal follow-up plan:?Counseling for abnormal BMI given?Yes ?Above Normal BMI Follow-up?Dietary management education, guidance, and counseling ?Smoking/Tobacco Use?Patient counseled on the dangers of tobacco use and urged to quit.?09/18/2023 ??DM Care Plan:?Patient Lifestyle Goals?Patient wants to be able to manage diabetes without too much effort.?Treatment Goals?Blood Sugars less than < 115, HbA1C < 7.0.?Barriers?no barriers.?Self-Managment Goals?Work on weight loss, with a goal of losing 1 lb per week.? ??COPD Care Plan:?Patient Lifestyle Goals?Be able to be more active with friends and family, Reduce number of ED and hospitalizations, Relieve symptoms and improve quality of life.?Treatment Goals?Eat a nutritious diet and increase water consumption to 6-8 glasses a day.?Barriers?no barriers.?Self-Managment Goals?Get an air purifier for the rooms you are in the most, Eat a healthy diet.? * Follow Up:?6 Months (Reason: ov review cxr) * Images: * Sign off status: Completed true * Provider:?Gregory Cleveland MD Date:?09/08 Generated for Rosana zavala/Lucy/Sammy on:?04/11/2024 04:45 PM EST History and Physical Notes * HPI (History of Present Illness) Category Sub-Category Detail Notes COVID-19 Screening Questions Have you had any new onset fever, chills, cough, congestion, sore throat, shortness of breath, muscle aches?: No Have you been exposed to the virus withi n the last 10 days?: No Have you travelled internationally in [facility] last 10 days?: No Have you been [...]
--- OUTSIDE RECORDS SUMMARY | 2024-04-11 16:46 | XMS_ITS | Patient Health Record ---
Author Organization Gregory Cleveland III, MD Address [address] [place] [address] Care Team Providers Care Marketing Associate Name Role Phone Javier Rosales MD Primary Care Provider Hipolitoa Gregory Tan Unavailable [phone] Allergies Allergen (clinical drug ingredient) Drug/Non Drug Allergy documented on EMR Reaction Allergy Type Onset Date Status No Known Drug Allergy Unknown Drug Allergy Active Results Component Value Reference Range Notes XR chest 2V Reviewed date:02/20/2024 08:47:54 AM Interpretation: Performing Lab: Notes/Report: [address] [address] XRay Report Signed Patient: Jah Curtis MR#: [id number] : 1935 Acct:[id number] Age/Sex: 88 / M ADM Date: 02/12/24 Loc: [facility] Attending Dr: Javier Rosales MD Ordering Physician: Gregory Cleveland MD Date of Service: 02/12/24 Procedure(s): XR chest 2V Accession Number(s): [id number] cc: Gregory Cleveland MD; Javier Rosales MD EXAMINATION: XR CHEST CLINICAL INFORMATION: Smoker. COMPARISON: CT chest dated 09/20/2021. TECHNIQUE: 2 views of the chest were obtained. FINDINGS: The lungs are clear. The cardiomediastinal silhouette is normal in size. There is no pleural effusion or pneumothorax. No acute osseous abnormality. XR/XR chest 2V IMPRESSION: No acute cardiopulmonary findings. Electronically signed by: Jesus Manuel Britton MD 02/12/2024 03:25 PM EST RP Dictated By: Jesus Manuel Britton MD Signed By: <Electronically signed by Jesus Manuel Britton MD in OV> 02/12/24 1525 DD/ 1331 TD/TT: 02/12/24 1351 [employer] Driver: [place] [address] XRay Report Signed Patient: Elaine Curtis MR#: [id number] : 1935 Acct:[id number] Age/Sex: 88 / M ADM Date: 02/12/24 Loc: [facility] Attending Dr: Javier Rosales MD Ordering Physician: Gregory Cleveland MD Date of Service: 02/12/24 Procedure(s): XR chest 2V Accession Number(s): [id number] cc: Gregory Cleveland MD; Javier Rosales MD EXAMINATION: XR CHEST CLINICAL INFORMATION: Smoker. COMPARISON: CT chest dated 09/20/2021. TECHNIQUE: 2 views of the chest were obtained. FINDINGS: The lungs are clear. The cardiomediastinal silhouette is normal in size. There is no pl eural effusion or pneumothorax. No acute osseous abnormality. X R/XR chest 2V IMPRESSION: No acute cardiopulmo nary findings. Electronically manan d by: Jesus Manuel Britton MD 02/12/2024 03:25 PM EST RP Dictated By: Jesus Manuel Britton MD Signed By: <Electron ically signed by Jesus Manuel Britton MD in OV> 02/12/24 1525 DD/ 1331 TD/TT: 02/12/24 1351 [employer] Driver: Reason For Referral No Information Medications Medication SIG (Take, Route, Frequency, Duration) Notes Start Date End Date Status Finasteride 5 MG Oral Act selena Carvedilol 3.125 MG 1 tablet Orally twic e a day Active Xarelto 20 MG 1 tablet Orally Once a day Active Vitamin D3 1000 UNIT 1 capsule Orally On ce a day Active metFORMIN HCl ER (MOD) 500 MG 1 tablet with evening meal Orally Twice a day Active amLODIPine Besylate 5 MG 1 tablet Orally Once a day Active Tamsulosin HCl 0.4 MG 2 capsule Orally at night Active Stool Softener Activ e Tresiba FlexTouch 100 UNIT/ML 30 Units Subcutaneous In the morning Active Social History Tobacco Use: Social History Observation Description Date Details (start date - stop date) Former Smoker NA - NA Tobacco Use/Smoking Question Answer Notes Patient is a former smoker How long has it been since you last smoked? > 10 years Additional Findings: Tobacco Non-User Ex-cigaret te smoker Alcohol Screen Question Answer Notes Did you have a drink containing alcohol in the p ast year? No Points 0 Interpretation Negative Problems Problem Type SNOMED Code ICD Code Onset Dates Problem Status W/U Status Risk Notes Problem 7951115 Former smoker (Z87.891) Active confirmed He has a plan to prevent relapse in times of stress and illness. He is highly motivated not to smoke. Problem 09915210 DM (diabetes mellitus) (E11.9) Active confirmed His fastin g blood glucose level was 73. His A1c is 6.7. He is free of symptoms. I will refer him back to his primary care physician for management of his diabetes. Problem 180906497 Overweight (E66.3) Active confirmed His body mass index is 26.6 and he has lost several pounds. I recommend a gradual weight loss until about a mass index is in the normal range. We discussed the elements of a weight loss diabetic diet. Problem 307342778 Thrombocytopenia (D69.6) Active confirmed His platelet count is 189. He is intermittently low, but usually normal. No treatment is necessary at this time. The value will be observed. Problem 50456238 Hypercalcemia (E83.52) Active confirmed His calcium level is now normal at 9.5. Problem 531120718 Paroxysmal atria l fibrillation (I48.0) Active confirmed He was in sinus rhythm today with no symptoms. His medications were continued without change. Problem 18983073 Ureterolithiasis (N20.1) Active confirmed He has had no episodes of renal colic. Since his last visit. He has had no hematuria or dysuria. Problem 43826790 HTN (hypertension) (I10) Active confirmed His blood pressure is stable at 106/56 and into normal range today. I recommended sodium restriction, weight loss, but made no change in his medications. Problem 233546228 Anticoagulated (Z79.01) Active confirmed He remains on Xarelto without bleeding. He has been compliant with his medication. Problem 64324166 COPD (chronic obstructive pulmonary disease) (J44.9) Active confirmed He is mildl y symptomatic, but able to conduct all of the activities of daily life without supplemental oxygen. Problem 544353924 Cholelithiasis (K80.20) Active confirmed There is no right upper quadrant tenderness and he feels well today. His diet is unrestricted. His appetite is good Problem 858711508672127 New daily persistent headache (G44.52) Active confirmed Headache i s occipital and seems to be coming from the scalp rather than from the brain. He will be followed closely. CT scanning of the brain will be done if the symptom does not resolve or neurological symptoms develop. Problem 146073746 Non-small cell carcinoma of lung (C34.90) Active confirmed He remains free of recurrent disease with a normal mental status. Problem 486307563 Rotator cuff tea r (M75.100) Active confirmed The pain is stable but he does not wish to have any treatment at this time. Problem 235000422 Benign prostatic hyperplasia with lower urinary tract symptoms (N40.1) Active confirmed He is stable with nocturia once or twice a night. No change in his regimen is necessary. Problem 91081747 Brain metastasis (C79.31) Active confirmed He reports no new neurological symptoms. He has had no headaches or weakness or seizures or episodes of syncope. Surveillance will continue. 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 He has had no recurrent DVT or pulmonary emboli. His breathing is unremarkable today. He suffered a deep venous thrombosis of his right lower extremity with bilateral pulmonary emboli in March of 2017. He has been anticoagulated since. Vital Signs Heart Rate 66 /min 03/25/2024 Temperature 97.2 degrees Fahrenheit 03/25/2024 Blood pressure diastolic 84 mm Hg 03/25/2024 Height 71 in 03/25/2024 Blood pressure systolic 131 mm Hg 03/25/2024 Weight 183 lbs 03/25/2024 BMI 25.52 kg/m2 03/25/2024 Encounters Encounter Location Date Provider Diagnosis Gregory Cleveland III, MD [address] [place] [address] [place] [address] 06/20/2023 Gregory Cleveland Former smoker Z87.89 1 ; DM (diabetes mellitus) E11.9 ; HTN (hypertension) I10 ; Non-small cell carcinoma of lung C34.90 ; Rotator cuff tear M75.100 ; COPD (chronic obstructive pulmonary disease) J44.9 ; Overweight E66.3 ; Paroxysmal atrial fibrillation I48.0 ; Other chronic pulmonary embolism without acute cor pulmonale I27.82 ; Benign prostatic hyperplasia with lower urinary tract symptoms N40.1 ; Brain metastasis C79.31 ; Hypercalcemia E83.52 and Chronic constipation K59.09 Gregory Cleveland III, MD [address] [place] [address] [place] [address] 09/18/2023 Gregory Cleveland Former smoker Z87.89 1 ; Non-small cell carcinoma of lung C34.90 ; HTN (hypertension) I10 ; Rotator cuff tear M75.100 ; COPD (chronic obstructive pulmonary disease) J44.9 ; Ureterolithiasis N20.1 ; Cholelithiasis K80.20 ; Paroxysmal atrial fibrillation I48.0 ; Other chronic pulmonary embolism without acute cor pulmonale I27.82 and Overweight E66.3 Gregory Cleveland III, MD [address] [place] [address] [place] [address] 03/25/2024 Gregory Cleveland Former smoker Z87.89 1 ; Non-small cell carcinoma of lung C34.90 ; DM (diabetes mellitus) E11.9 ; HTN (hypertension) I10 ; Rotator cuff tear M75.100 ; Overweight E66.3 ; Ureterolithiasis N20.1 ; COPD (chronic obstructive pulmonary disease) J44.9 ; Paroxysmal atrial fibrillation I48.0 ; Other chronic pulmonary embolism without acute cor pulmonale I27.82 and Anticoagulated Z79.01 Gregory Cleveland III, MD [address] [place] [address] [place] [address] 06/23/2023 Gregory Cleveland Assessments Encounter Date Diagnosis (ICD Code) Assessment Notes T reatment Notes Treatment Clinical Notes 06/20/2023 Former smoker (ICD-1 0 - Z87.891) He has a plan to prevent relapse in times of stress and illness. He is highly motivated not to smoke. 06/20/2023 DM (diabetes mellitu s) (ICD-10 - E11.9) His fasting blood glucose level was 73. His A1c is 6.7. He is free of symptoms. I will refer him back to his primary care physician for management of his diabetes. 09/18/2023 Former smoker (ICD-1 0 - Z87.891) He has a plan to prevent relapse in times of stress and illness. He is highly motivated not to smoke. 09/18/2023 Non-small cell carcinoma of lung (ICD-10 - C34.90) He remains free of recurrent disease with a normal mental status. 03/25/2024 Former smoker (ICD-1 0 - Z87.891) He has a plan to prevent relapse in times of stress and illness. He is highly motivated not to smoke. 03/25/2024 Non-small cell carcinoma of lung (ICD-10 - C34.90) He remains free of recurrent disease with a normal mental status. 06/20/2023 HTN (hypertension) (ICD-10 - I10) His blood pressure is stable at 106/56 and into normal range today. I recommended sodium restriction, weight loss, but made no change in his medications. 09/18/2023 HTN (hypertension) (ICD-10 - I10) His blood pressure is stable at 106/56 and into normal range today. I recommended sodium restriction, weight loss, but made no change in his medications. 03/25/2024 DM (diabetes mellitu s) (ICD-10 - E11.9) His fasting blood glucose level was 73. His A1c is 6.7. He is free of symptoms. I will refer him back to his primary care physician for management of his diabetes. 06/20/2023 Non-small cell carcinoma of lung (ICD-10 - C34.90) There was no sign of recurrent disease or new primary on today's visit. He will continue with observation. He is no longer smoking. He is neurologically intact and conducts the activities of daily life without impairment. 09/18/2023 Rotator cuff tear (ICD-10 - M75.100) The pain is stable but he does not wish to have any treatment at this time. 03/25/2024 HTN (hypertension) (ICD-10 - I10) His blood pressure is stable at 106/56 and into normal range today. I recommended sodium restriction, weight loss, but made no change in his medications. 06/20/2023 Rotator cuff tear (ICD-10 - M75.100) The pain is stable but he does not wish to have any treatment at this time. 09/18/2023 COPD (chronic obstructive pulmonary disease) (ICD-10 - J44.9) He is mildly symptomatic, but able to conduct all of the activities of daily life without supplemental oxygen. 03/25/2024 Rotator cuff tear (ICD-10 - M75.100) The pain is stable but he does not wish to have any treatment at this time. 06/20/2023 COPD (chronic obstructive pulmonary disease) (ICD-10 - J44.9) He is mildly symptomatic, but able to conduct all of the activities of daily life without supplemental oxygen. 09/18/2023 Ureterolithiasis (ICD-10 - N20.1) He has had no episodes of renal colic. Since his last visit. He has had no hematuria or dysuria. 03/25/2024 Overweight (ICD-10 - E66.3) His body mass index is 26.6 and he has lost several pounds. I recommend a gradual weight loss until about a mass index is in the normal range. We discussed the elements of a weight loss diabetic diet. 06/20/2023 Overweight (ICD-10 - E66.3) His body mass index is 26.6 and he has lost several pounds. I recommend a gradual weight loss until about a mass index is in the normal range. We discussed the elements of a weight loss diabetic diet. 09/18/2023 Cholelithiasis (ICD- 10 - K80.20) There is no right upper quadrant tenderness and he feels well today. His diet is unrestricted. His appetite is good 03/25/2024 Ureterolithiasis (ICD-10 - N20.1) He has had no episodes of renal colic. Since his last visit. He has had no hematuria or dysuria. 06/20/2023 Paroxysmal atrial fibrillation (ICD-10 - I48.0) He was in sinus rhythm today with no symptoms. His medications were continued without change. 09/18/2023 Paroxysmal atrial fibrillation (ICD-10 - I48.0) He was in sinus rhythm today with no symptoms. His medications were continued without change. 03/25/2024 COPD (chronic obstructive pulmonary disease) (ICD-10 - J44.9) He is mildly symptomatic, but able to conduct all of the activities of daily life without supplemental oxygen. 06/20/2023 Other chronic pulmonary embolism without acute cor pulmonale (ICD-10 - I27.82) He has had no bleeding on his anticoagulation. He has had no recurrent DVT or pulmonary emboli. His breathing is unremarkable today. He suffered a deep venous thrombosis of his right lower extremity with bilateral pulmonary emboli in March of 2017. He has been anticoagulated since. 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 He has had no recurrent DVT or pulmonary emboli. His breathing is unremarkable today. He suffered a deep venous thrombosis of his right lower extremity with bilateral pulmonary emboli in March of 2017. He has been anticoagulated since. 03/25/2024 Paroxysmal atrial fibrillation (ICD-10 - I48.0) He was in sinus rhythm today with no symptoms. His medications were continued without change. 06/20/2023 Benign prostatic hyperplasia with lower urinary tract symptoms (ICD-10 - N40.1) He is stable with nocturia once or twice a night. No change in his regimen is necessary. 09/18/2023 Overweight (ICD-10 - E66.3) His body mass index is 26.6 and he has lost several pounds. I recommend a gradual weight loss until about a mass index is in the normal range. We discussed the elements of a weight loss diabetic diet. 03/25/2024 Other chronic pulmonary embolism without acute cor pulmonale (ICD-10 - I27.82) He has had no bleeding on his anticoagulation. He has had no recurrent DVT or pulmonary emboli. His breathing is unremarkable today. He suffered a deep venous thrombosis of his right lower extremity with bilateral pulmonary emboli in March of 2017. He has been anticoagulated since. 06/20/2023 Brain metastasis (ICD-10 - C79.31) He reports no new neurological symptoms. He has had no headaches or weakness or seizures or episodes of syncope. Surveillance will continue. 03/25/2024 Anticoagulated (ICD- 10 - Z79.01) He remains on Xarelto without bleeding. He has been compliant with his medication. 06/20/2023 Hypercalcemia (ICD-1 0 - E83.52) His calcium level is now normal at 9.5. 06/20/2023 Chronic constipation (ICD-10 - K59.09) I recommended an increase fiber in his diet with green vegetables and bran cereal combined with MiraLAX. Plan Of Treatment Pending Test Test Name Order Date PROFILE, FASTING (COMPREHENSIVE METABOLI C) 02/22/2021 PROFILE, RANDOM (COMPREHENSIVE METABOLIC ) 02/19/2019 PROFILE, RANDOM (COMPREHENSIVE METABOLIC ) 09/18/2018 PROFILE, RANDOM (COMPREHENSIVE METABOLIC ) 07/27/2020 PROFILE, RANDOM (COMPREHENSIVE METABOLIC ) 07/17/2018 PROFILE, RANDOM (COMPREHENSIVE METABOLIC ) 05/08/2019 PROFILE, RANDOM (COMPREHENSIVE METABOLIC ) 05/15/2018 PROFILE, RANDOM (COMPREHENSIVE METABOLIC ) 06/21/2021 HEMOGLOBIN A1C (GLYCOHEMOGLOBIN) 019 HEMOGLOBIN A1C (GLYCOHEMOGLOBIN) 019 HEMOGLOBIN A1C (GLYCOHEMOGLOBIN) 022 HEMOGLOBIN A1C (GLYCOHEMOGLOBIN) 021 HEMOGLOBIN A1C (GLYCOHEMOGLOBIN) 019 CREATININE CLEARANCE 06/08/2015 CREATININE 06/08/2015 MAGNESIUM 06/21/2021 BRAIN NATRIURETIC PEPTIDE (BNP) 07/13/19 22 PSA, TOTAL 02/22/2021 PSA, TOTAL 06/21/2021 MICROALBUMIN, RANDOM 02/22/2021 CBC w DIFF 05/15/2018 CBC w DIFF 02/19/2019 CBC w DIFF 06/21/2021 CBC w DIFF 02/22/2021 CBC w DIFF 07/27/2020 CBC w DIFF 09/18/2018 CBC w DIFF 07/17/2018 CBC w DIFF 05/08/2019 SED RATE (ESR) 05/08/2019 XR CHEST 2 VIEW PA & LAT 05/15/2018 XR CHEST 2 VIEW PA & LAT 07/17/2018 XR LUMBAR SPINE 4+ VIEWS 07/17/2018 VITAMIN D 25-OH TOTAL 02/19/2019 VITAMIN D 25-OH TOTAL 09/18/2018 Glucose Fasting 07/12/2021 Lipid Panel 02/22/2021 Next Appt Details Provider Name:Gregory Cleveland, 09/23/2024 03:00:00 PM, [address] [place] [address] [address], [address], [place], [address], Insurance Providers Payer Name Payer Address Payer Phone Subscriber Number Group Number Insured Name Patient Relationship to Insured Coverage Start Date Coverage End Date MEDICARE NGS [address] [place] [address] [phone] [id number] KhushigaviotaJah davis Self - patient is the insured [facility] [address] [place], [place] [id number] [phone] [id number] 1 Daryl Jah felix Self - patient is the insured Medical (General) History Medical History History ICD Code DM (diabetes mellitus) E11.9 HTN right rotator cull surgery oral surgery gums former smoker rabies vaccine February 2015 for bat bit e nondisplaced fracture is posterior eleme nt cervical spine in October 2014 kidney stones 20 years ago fracture left sixth, seventh and eighth ribs Cholelithiasis DVT right lower extremity March 2017 bilateral pulmonary emboli March 20172014. 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
== END 2024-04-11 15:53 | disposition home or self-care (01) ==
PROVIDERS: PCP Internal Medicine; Visit Provider Urology
DX: R97.20 Elevated prostate specific antigen [PSA] (principal); N40.0 Benign prostatic hyperplasia without lower urinary tract symptoms
CPT/HCPCS: 99213

== ENCOUNTER → 2024-04-11 15:17 | Outpatient (BNVA) | payer MEDICARE, SELFPAY | PROVIDERS: PCP Internal Medicine; Visit Provider Urology | DX: R97.20 Elevated prostate specific antigen [PSA] (principal); N40.0 Benign prostatic hyperplasia without lower urinary tract symptoms | CPT/HCPCS: 51798; 99212 ==

== ENCOUNTER 2024-06-18 13:46 | Outpatient (RCR) | payer MEDICARE, SELFPAY ==
--- NOTE | 2024-06-19 10:56 | MHC.PT.DC ---
[facility] [place] Office [place] Office [place] Office [address] Kasey Byrnes [address] [phone] F: [phone] F: [phone] F: [phone] F: [phone] Physical Therapy Discharge Report Diagnosis: PBL, L LE radiculopathy L2-3 Date of Surgery: Date of Evaluation: 05/06/23 Date of Discharge: 06/18/24 Treatments to Date: 6 Cancellations to Date: No Shows to Date: Discharge Status: Achieved Goals Improved Function Independent with HEP Discharge Summary: 06/19: Jah has been an active participant ion his therapy in and out of the clinic, he has met his therapeutic goals, [facility] and is in agreement with DC today. Electronically signed by: Vinicius Alejandre PT. Please sign and return to therapist. Thank you for your referral.
== END 2024-06-19 10:56 | disposition home or self-care (01) ==
LOC: HO.PT 13:46
PROVIDERS: PCP Internal Medicine; Visit Provider Internal Medicine
DX: M54.50 Low back pain, unspecified (principal)
CPT/HCPCS: 97110; 97112; 97161

== ENCOUNTER 2024-09-26 14:32 | Outpatient (AMB) | payer MEDICARE, SELFPAY ==
--- OUTSIDE RECORDS SUMMARY | 2023-09-18 10:30 | XMS_ITS ---
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, Diabetes, Hypertension, COPD, Benign prostatic hypertrophy Medications Medication SIG (Take, Route, Frequency, Duration) Notes Start Date End Date Status Tresiba FlexTouch 100 UNIT/ML 30 Units Subcutaneous In the morning Active Finasteride 5 MG Oral Act selena amLODIPine Besylate 5 MG 1 tablet Orally Once a day Active Stool Softener Activ e Tamsulosin HCl 0.4 MG 2 capsule Orally at night Active Xarelto 20 MG 1 tablet Orally Once a day Active metFORMIN HCl ER (MOD) 500 MG 1 tablet with evening meal Orally Twice a day Active Carvedilol 3.125 MG 1 tablet Orally twic e a day Active Vitamin D3 1000 UNIT 1 capsule Orally On a day Active Social History Tobacco Use: Social History Observation Description Date Details (start date - stop date) Former Smoker NA - NA Tobacco Use/Smoking Question Answer Notes Patient is a former smoker How long has it been since you last smoked? > 10 years Additional Findings: Tobacco Non-User Ex-cigaret te smoker Vital Signs Temperature 97.9 degrees Fahrenheit 09/18/19 24 Blood pressure systolic 130 mm Hg 09/18/19 24 Blood pressure diastolic 71 mm Hg 024 Heart Rate 67 /min 09/18/2023 Height 71 in 09/18/2023 Weight 185 lbs 09/18/2023 BMI 25.8 kg/m2 09/18/2023 Encounters Encounter Location Date Provider Diagnosis Gregory Cleveland III, MD [address] [place] [address] [place] [address] 09/18/2023 Gregory Cleveland Former smoker Z87.89 1 ; Non-small cell carcinoma of lung C34.90 ; HTN (hypertension) I10 ; Rotator cuff tear M75.100 ; COPD (chronic obstructive pulmonary disease) J44.9 ; Ureterolithiasis N20.1 ; Cholelithiasis K80.20 ; Paroxysmal atrial fibrillation I48.0 ; 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 He is highly motivated not to smoke. 09/18/2023 Non-small cell carcinoma of lung (ICD-10 - C34.90) He remains free of recurrent disease with a normal mental status. 09/18/2023 HTN (hypertension) (ICD-10 - I10) His blood pressure is stable at 106/56 and into normal range today. I recommended sodium restriction, weight loss, but made no change in his medications. 09/18/2023 Rotator cuff tear (ICD-10 - M75.100) The pain is stable but he does not wish to have any treatment at this time. 09/18/2023 COPD (chronic obstructive pulmonary disease) (ICD-10 - J44.9) He is mildly symptomatic, but able to conduct all of the activities of daily life without supplemental oxygen. 09/18/2023 Ureterolithiasis (ICD-10 - N20.1) He has had no episodes of renal colic. Since his last visit. He has had no hematuria or dysuria. 09/18/2023 Cholelithiasis (ICD- 10 - K80.20) There is no right upper quadrant tenderness and he feels well today. His diet is unrestricted. His appetite is good 09/18/2023 Paroxysmal atrial fibrillation (ICD-10 - I48.0) He was in sinus rhythm today with no symptoms. His medications were continued without change. 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 He has had no recurrent DVT or pulmonary emboli. His breathing is unremarkable today. He suffered a deep venous thrombosis of his right lower extremity with bilateral pulmonary emboli in March of 2017. He has been anticoagulated since. 09/18/2023 Overweight (ICD-10 - E66.3) His body mass index is 26.6 and he has lost several pounds. I recommend a gradual weight loss until about a mass index is in the normal range. We discussed the elements of a weight loss diabetic diet. Plan Of Treatment Medication Medication Name Sig Start Date Stop Date Notes Tresiba FlexTouch 100 UNIT/ML 30 Units S ubcutaneous In the morning Finasteride 5 MG Oral amLODIPine Besylate 5 MG 1 tablet Orally Once a day Stool Softener Tamsulosin HCl 0.4 MG 2 capsule Orally at night Xarelto 20 MG 1 tablet Orally Once a day metFORMIN HCl ER (MOD) 500 MG 1 tablet w ith evening meal Orally Twice a day Carvedilol 3.125 MG 1 tablet Orally twice a day Vitamin D3 1000 UNIT 1 capsule Orally Once a day Next Appt Details Follow Up: 6 Months, Reason: ov review cxr Provider Name:Gregory Cleveland, 03/25/2025 03:15:00 PM, [address] [place] [address], [address], Progress Notes * Jah CURTIS EDOB:09/1935 (87 yo M)Acc No.[id number]:09/18/2023 Progress Notes Patient: Jah Hughes Provider: Elaine Cleveland MD :1935 A ge:87 Y S ex:Male Date:09/18/2023 [facility] [id number] Pcp:Javier Rosales MD Subjective: * Chief Complaints: * N on-small cell lung cancer with brain metastasesDiabetesHypertensionCOPDBenign prostatic hypertrophy * HPI: C OVID-19 Screening: Questions H ave you experienced fever, chills, cough, sore throat, shortness of breath, difficulty breathing, muscle aches, loss of taste or smell? N o H ave you been exposed to the virus within the last 10 days? N o H ave you travelled internationally in the last 10 days? N o H ave you been exposed to COVID-19 in the past? N o He reports that the previously reported gastrointestinal issues and chest pain have resolved. He is feeling much better. He got a prescription from a urologist for prostatism. His breathing is stable and he has no headaches. * ROS: G eneral/Constitutional: pain o nly normal aches and pains. C hills d enies.?Fatigue a dmits. F ever d enies. E NT: Decreased hearing d enies. R espiratory: Cough d enies. C ardiovascular: Chest pain with exertion d enies. D yspnea on exertion?denies. S hortness of breath d enies. G astrointestinal: Constipation o ccasional. D ecreased appetite d enies. D iarrhea d enies. H eartburn d enies. N ausea d enies. R ectal bleeding d enies. V omiting d enies. H ematology: bruising d enies. p etechiae d enies. S wollen glands n one have been noted. G enitourinary: Frequent urination t wice a night. M usculoskeletal: Muscle aches d enies. P ainful joints d enies. S ciatica d enies. W eakness d enies. S kin: Itching d enies. R jeanne d enies. S kin lesion(s)?denies. N eurologic: Difficulty speaking d enies. D izziness d enies.?Headache d enies. L ow back pain d enies. P sychiatric: Depressed mood d enies. 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 M other: 41 yrs, CAD, myocardial infarction.?2 brother(s) . 2 son(s) , 1 daughter(s) - healthy. . One brother is alive and well. One brother of a myocardial infarction. There is no family history of cancer. * Social History: T obacco Use: T obacco Use/Smoking P atient is a f ormer smoker H ow long has it been since you last smoked??> 10 years A dditional Findings: Tobacco Non-User E x-cigarette smoker Anselmo hernandez was born in [facility]. He is but and his lives in [place]. He has 2 sons and 1 daughter and no grandchildren. 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 * Medications: T akingStool Softener Xarelto 20 MG Tablet 1 tablet Orally Once a dayCarvedilol 3.125 MG Tablet 1 tablet Orally twice a daymetFORMIN HCl ER (MOD) 500 MG Tablet Extended Release 24 Hour 1 tablet with evening meal Orally Twice a dayVitamin D3 1000 UNIT Capsule 1 capsule Orally Once a dayTamsulosin HCl 0.4 MG Capsule 2 capsule Orally at nightamLODIPine Besylate 5 MG Tablet 1 tablet Orally Once a dayTresiba FlexTouch 100 UNIT/ML Solution Pen-injector 20 Units Subcutaneous In the morningFinasteride 5 MG Tablet Oral Medication List reviewed and reconciled with the patientTaking Stool Softener Taking Xarelto 20 MG Tablet 1 tablet Orally Once a dayTaking Carvedilol 3.125 MG Tablet 1 tablet Orally twice a dayTaking metFORMIN HCl ER (MOD) 500 MG Tablet Extended Release 24 Hour 1 tablet with evening meal Orally Twice a dayTaking Vitamin D3 1000 UNIT Capsule 1 capsule Orally Once a dayTaking Tamsulosin HCl 0.4 MG Capsule 2 capsule Orally at nightTaking amLODIPine Besylate 5 MG Tablet 1 tablet Orally Once a dayTaking Tresiba FlexTouch 100 UNIT/ML Solution Pen-injector 20 Units Subcutaneous In the morningTaking Finasteride 5 MG Tablet Oral Medication List reviewed and reconciled with the patient * Allergies: N o Known Drug Allergyno[Allergies Verified] Objective: * Vitals: H t: 71, Wt:185, BMI:25.8, BP:130/71, HR:67, Temp:97.9, Wt-k.91. * Examination: G eneral Examination: GENERAL APPEARANCE: p leasant, well nourished, well developed, in no acute distress, calm and relaxed , overweight , , elderly man. HEAD: a traumatic, normocephalic. EYES: e david, perrla, anicteric, conjugate. EARS: n ormal. NOSE: s eptum intact. ORAL CAVITY: n ormal, unremarkable. NECK/THYROID: n o jugular venous distention, no carotid bruit, thyroid normal. LYMPH NODES: n o enlarged lymph nodes,spleen normal. SKIN: n o suspicious lesions, anicteric. HEART: n o clicks, gallops, murmurs, or rubs, regular rhythm, S1, S2 normal, no s3, or vascular bruits. LUNGS: c lear to auscultation , diminished breath sounds throughout , no wheezes, rales, rhonchi , good air movement. BREASTS: no masses palpable bilaterally. ABDOMEN: b owel sounds normal, no ascites, no organomegaly, no mass. RECTAL EXAM: n ot examined. MUSCULOSKELETAL: e xtremities unremarkable, no clubbing, cyanosis or edema. PERIPHERAL PULSES: n ormal. NEUROLOGIC: a lert and oriented, cranial nerves 2-12 grossly intact, deep tendon reflexes 2+ symmetrical, motor strength normal upper and lower extremities, sensory exam intact. PSYCH: a lert, oriented. Assessment: * Assessment: 1. F ormer smoker - Z87.891 (Primary), He has a plan to prevent relapse in times of stress and illness. He is highly motivated not to smoke. 2 . N on-small cell carcinoma of lung - C34.90, He remains free of recurrent disease with a normal mental status. 3 . H TN (hypertension) - I10, His blood pressure is stable at 106/56 and into normal range today. I recommended sodium restriction, weight loss, but made no change in his medications. 4 . R otator cuff tear - M75.100, The pain is stable but he does not wish to have any treatment at this time. 5 . C OPD (chronic obstructive pulmonary disease) - J44.9, He is mildly symptomatic, but able to conduct all of the activities of daily life without supplemental oxygen. 6 . U reterolithiasis - N20.1, He has had no episodes of renal colic. Since his last visit. He has had no hematuria or dysuria. 7 .?Cholelithiasis - K80.20, There is no right upper quadrant tenderness and he feels well today. His diet is unrestricted. His appetite is good 8 . P aroxysmal atrial fibrillation - I48.0, He was in sinus rhythm today with no symptoms. His medications were continued without change. 9 . O ther chronic pulmonary embolism without acute cor pulmonale - I27.82, He has had no bleeding on his anticoagulation. He has had no recurrent DVT or pulmonary emboli. His breathing is unremarkable today. He suffered a deep venous thrombosis of his right lower extremity with bilateral pulmonary emboli in March of 2017. He has been anticoagulated since. 1 0. O verweight - E66.3, His body mass index is 26.6 and he has lost several pounds. I recommend a gradual weight loss until about a mass index is in the normal range. We discussed the elements of a weight loss diabetic diet.? Plan: * Treatment: 2. N on-small cell carcinoma of lung I maging: XR CHEST 2 VIEW PA & LAT * Procedure Codes: * Preventive Medicine: Counseling: C are goal follow-up plan: Counseling for abnormal BMI given Y es Above Normal BMI Follow-up D ietary management education, guidance, and counseling S moking/Tobacco Use Patient counseled on the dangers of tobacco use and urged to quit. 0 09/18/2023 DM Care Plan: P atient Lifestyle Goals P atient wants to be able to manage diabetes without too much effort. T reatment Goals B lood Sugars less than < 115, HbA1C < 7.0. B arriers n o barriers. S elf-Managment Goals W ork on weight loss, with a goal of losing 1 lb per week. COPD Care Plan: P atient Lifestyle Goals B e able to be more active with friends and family, Reduce number of ED and hospitalizations, Relieve symptoms and improve quality of life. T reatment Goals E at a nutritious diet and increase water consumption to 6-8 glasses a day. B arriers n o barriers. S elf-Managment Goals G et an air purifier for the rooms you are in the most, Eat a healthy diet. * Follow Up: 6 Months (Reason: ov review cxr) * Images: * Sign off status: Completed true * Provider: Elaine Cleveland MD Date: 09/18/2023 Generated for Rosana zavlaa/Lucy/Sammy on: 09/26/2024 03:49 PM EDT History and Physical Notes * HPI (History of Present Illness) Category Sub-Category Detail Notes COVID-19 Screening Questions Have you had any new onset fever, chills, cough, congestion, sore throat, shortness of breath, muscle aches?: No Have you been exposed to the virus withi n the last 10 days?: No Have you travelled internationally in last 10 days?: No Have you been exposed to COVID-19 in the past?: No Examination Category Sub-Category Detail Notes General Examination GENERAL APPEARANCE: pleasant , well nourished, well developed, in no acute distress, calm and relaxed , overweight , , elderly man HEAD: atraumatic, normocep halic EYES: eomi, perrla, anicte carla, conjugate EARS: normal NOSE: septum intact NECK/THYROID: no jugular venous di stention, no carotid bruit, thyroid normal HEART: no clicks, gallops, murmurs, or rubs, regular rhythm, S1, S2 normal, no s3, or vascular bruits LUNGS: clear to auscultatio n , diminished breath sounds throughout , no wheezes, rales, rhonchi , good air movement ABDOMEN: bowel sounds normal, no ascites, no organomegaly, no mass NEUROLOGIC: alert and oriented, cranial nerves 2-12 grossly intact, deep tendon reflexes 2+ symmetrical, motor strength normal upper and lower extremities, sensory exam intact SKIN: no suspicious lesion s, anicteric PERIPHERAL PULSES: normal BREASTS: no masses palpable b ilaterally MUSCULOSKELETAL: extremities unremark able, no clubbing, cyanosis or edema LYMPH NODES: no enlarged lymph no leslie,spleen normal RECTAL EXAM: not examined PSYCH: alert, oriented ORAL CAVITY: normal, unremarkable
[2024-09-26 14:53] VITALS: BP 128/72; PULSE 62; TEMP 36.1; O2SAT 96; BMI 24.3
--- NOTE | 2024-09-26 14:53 | MHC.PC.OV ---
Vital Signs 09/26/24 14:53 Height 6 ft 1 in Weight 184 lb BMI 24.3 BP 128/72 Blood Pressure Location Rt brachial Position Sitting Pulse 62 Pulse Source Pulse Oximeter Temp 97 F Temp Source Axillary Pulse Oximetry (%) 96 Oxygen Delivery Method Room Air Intake Visit Reasons: Routine Exhauster Required: No Accompanied by: Spouse Allergies No Known Allergies (No Known Allergies*) Allergy (Verified 09/26/24 14:55) Tobacco use date assessed: 09/26/24 Fall risk assessment: No Falls in past year Last assessed Fall Risk: 09/26/24 Dental Screening Dental Screen Date: 09/26/24 Did you have a dental visit in the last 12 months?: Yes Did you have a dental problem in the last 6 months where you did not have access to dental care?: No HPI HPI Comments History of Present Illness Details The patient is an 88 year old male with a past medical hitory of IDDM, hypertension, BPH/elevated psa, lung cancer, brain tumor, lumbar ddd presenting for follow up. DM: on metformin 500mg twice daily, tresiba 19 units. Due for A1C 6.4%. Checks blood glucose daily-fasting readings 120-170. No hypoglycemia. Eye exam is up todate. CV: History of atrial tachycardia. on norvasc 5mg daily, coreg 6.25 bid, xarelto. Sees cardiology once a year. Heme/Onc: Follows with Dr Cleveland. History of RUL adenocarcinoma. Brain lesion surgery [address] Alexander in August. Does not need to follow up unless there is problems. Was doing MRI surveillance, no longer needs to do Urology: follows with urology. on finasteride, flomax MSK: lumbar DDD. Was going to see neurosurgery but decided against further work up etc Is having difficulty sleeping. Takes a while to fall asleep then wakes up around 3/4 am and takes awhile to go back to sleep Colonoscopy-no further needed. ROS CONSTITUTIONAL: Denies weight loss, fever and chills. HEENT: Denies changes in vision and hearing. RESPIRATORY: Denies SOB and cough. CV: Denies palpitations and CP GI: Denies abdominal pain, nausea, vomiting and diarrhea. : Denies dysuria and urinary frequency. MSK: Denies new myalgia and joint pain. SKIN: Denies rash and pruritus. NEUROLOGICAL: Denies headache PSYCHIATRIC: Denies recent changes in mood. PHYSICAL EXAM: GENERAL: Alert and oriented x 3. NAD EYES: EOMI. Anicteric. HENT: Moist mucous membranes. No scleral icterus. No cervical lymphadenopathy. LUNGS: Clear to auscultation bilaterally. CARDIOVASCULAR: Regular rate and rhythm. No murmur. No JVD. ABDOMEN: Soft, non-tender +bs EXTREMITIES: No edema. Non-tender. SKIN: No rashes or lesions. Warm. NEUROLOGIC: No focal neurological deficits. CN II-XII grossly intact PSYCHIATRIC: Cooperative. Appropriate mood and affect [facility] Medical History Type 2 diabetes mellitus with unspecified complications History of fracture of rib History of cervical fracture Pulmonary nodules Personal history of nicotine dependence Lung cancer metastatic to brain (~2016) Primary adenocarcinoma of upper lobe of right lung (~2014) USHA (obstructive sleep apnea) Type 2 diabetes mellitus Hypertension, essential Atrial fibrillation Pulmonary embolism, bilateral (~2017) Surgical History History of colonoscopy History of surgery on right wrist History of rotator cuff surgery History of brain surgery (~02/2017) History of lobectomy of lung (~04/2015) Family History Mother Breast cancer Myocardial infarction Father COPD (chronic obstructive pulmonary disease) Brother Myocardial infarction Social History Housing: House Patient Tobacco Use Status: Former Tobacco user e-Cigarette/Vaping Use: Former Use service: No Current occupational status: retired Cognitive needs: No Hearing needs: No Vision needs: Yes (rx glasses) Questionnaire PHQ-9 Over the last 2 weeks, how often have you been bothered by any of the following problems? 1. Little interest or pleasure in doing things: not at all 2. Feeling down, depressed, or hopeless: not at all 3. Trouble falling or staying asleep, or sleeping too much: not at all 4. Feeling tired or having little energy: not at all 5. Poor appetite or overeating: not at all 6. Feeling bad about yourself - or that you are a failure or have let yourself or your family down: not at all 7. Trouble concentrating on things, such as reading the newspaper or watching television: not at all 8. Moving or speaking so slowly that other people could have noticed. Or the opposite - being so fidgety or restless that you have been moving around a lot more than usual: not at all 9. Thoughts that you would be better off or of hurting yourself in some way: not at all Total score: 0 Depression Screening Interpretation: Negative Depression Screening Done: Yes 59643 - PHQ-9 Billing: Yes Source: Developed by Drs. Gregory Bey, Rosalie Aguilar, Francesco Mendez and colleagues, with an educational mackenzie from [employer] Thrive Questionnaire Date Thrive assessed: 09/26/24 I am a: Patient Within the past 12 months, did the food you bought not last and you didn't have the money to get more?: Never true Within the past 12 months, did you worry whether your food would run out before you got money to buy more?: Never true Do you have trouble paying for medicines?: No Do you have trouble getting transportation to medical appointments?: No Do you have trouble paying your heating and electricity bill?: No Do you have trouble taking care of your child, family member or friend?: No Do you have trouble with day-to-day activities such as bathing, preparing meals, shopping, managing finances, etc.?: No Are you currently unemployed and looking for a job?: No Are you interested in more education?: No THRIVE Score: 0 AUDIT C Alcohol Use Questionnaire (AUDIT-C) 1. How often do you have a drink containing alcohol?: Monthly or less 2. How many drinks containing alcohol do you have on a typical day when you are drinking?: 1 or 2 3. How often do you have six or more drinks on one occasion?: Less than monthly Total Score: 2 AUDREY-7 AMB Questionnaire AUDREY-7 Date AUDREY - 7 assessed: 09/26/24 Feeling nervous, anxious, or on edge: 0 = Not at all Not being able to stop or control worryin = Not at all Worrying too much about different things: 0 = Not at all Trouble relaxin = Not at all Being so restless that it is hard to sit still: 0 = Not at all Becoming easily annoyed or irritable: 0 = Not at all Feeling afraid as if something awful might happen: 0 = Not at all Total AUDREY-7 score (0-4 normal; 5-9 mild; 10-14 moderate; 15-21 severe): 0 Source: Developed by Drs. Gregory Bey, Rosalie Aguilar, Francesco Mendez and colleagues, with an educational mackenzie from [employer] Physical exam (Primary Care) Vital Signs: Last Vital Signs Temp 97 F 09/26/24 14:53 Pulse 62 09/26/24 14:53 BP 128/72 09/26/24 14:53 Pulse Ox 96 09/26/24 14:53 Oxygen Delivery Method Room Air 09/26/24 14:53 BMI result Body Mass Index 24.3 Tobacco/Smoking Status: Tobacco use Status Tobacco use date assessed 09/26/24 09/26/24 14:58 Patient Tobacco Use Status Former Tobacco user 09/26/24 14:58 e-Cigarette/Vaping Use Former Use 09/26/24 15:08 PHQ-9: PHQ-9 Score PHQ-9: Total score 0 09/26/24 15:16 Depression Screening Interpretation: Negative Thrive Assessment: Date of Thrive Assessment Date Thrive assessed 09/26/24 09/26/24 14:58 Coding Level of Care Code New Pt Level 4 (95756) Complex EM visit Add On G2211 Diagnoses Hypertension, essential I10 Type 2 diabetes mellitus with unspecified complications E11.8 Primary adenocarcinoma of upper lobe of right lung C34.11 Additional Codes PHQ-9 - 14621 - PHQ-9 Billing: Yes ([id number]) Assessment & Plan Assessment & Plan (1) Hypertension, essential: Code(s): I10 - Essential (primary) hypertension Category: Medical (2) Type 2 diabetes mellitus with unspecified complications: Code(s): E11.8 - Type 2 diabetes mellitus with unspecified complications Category: Medical (3) Primary adenocarcinoma of upper lobe of right lung: Onset Date: ~2014 Comment: (s/p RUL lobectomy 2016 & left frontal lobe tumor excision 2016) Code(s): C34.11 - Malignant neoplasm of upper lobe, right bronchus or lung Category: Medical Plan 88 year old to establish care past medical, surgical, social reviewed History of lung cancer-f/up with heme/onc Insomnia-start trazodone. HTN-controlled on current medications Orders: Orders Hemoglobin A1c Today E11.8 - Type 2 diabetes mellitus with unspecified complications Comprehensive Met. Panel Today E11.8 - Type 2 diabetes mellitus with unspecified complications Medications: New trazodone 50 mg PO BEDTIME PRN 90 tabs 1RF sleep
== END 2024-09-26 15:38 | disposition home or self-care (01) ==
LOC: HO.HMCHD 14:32
PROVIDERS: PCP Internal Medicine; Visit Provider Internal Medicine
DX: I10 Essential (primary) hypertension (principal); E11.8 Type 2 diabetes mellitus with unspecified complications; C34.11 Malignant neoplasm of upper lobe, right bronchus or lung

== ENCOUNTER 2024-09-26 14:32 | Outpatient (REF) | payer MEDICARE, SELFPAY ==
[2024-09-26 16:46] LABS: Estimated Average Glucose 146 mg/dL; Hemoglobin A1c % 6.7 % (<6.0)
[2024-09-26 17:00] LABS: Alanine Aminotransferase 21 U/L (0-40); Albumin Level 4.5 g/dL (3.5-5.0); Alkaline Phosphatase 90 U/L (39-117); Anion Gap 14 (12-20); Aspartate Amino Transferase 20 U/L (5-37); Bilirubin Total 0.3 mg/dL (0.0-1.0); Blood Urea Nitrogen 17 mg/dL (9-16); Calcium 9.8 mg/dL (8.4-10.2); Carbon Dioxide 32 mmol/L (22-29); Chloride 102 mmol/L (96-108); Estimated Glomerular Filt Rate > 60; Glucose Random 162 mg/dL (60-115); Potassium 4.8 mmol/L (3.3-5.1); Sodium 143 mmol/L (135-145); Total Protein 7.1 g/dL (6.5-8.0)
== END 2024-09-26 14:33 | disposition home or self-care (01) ==
LOC: HO.LAB 14:32
PROVIDERS: PCP Internal Medicine; Visit Provider Internal Medicine
DX: E11.8 Type 2 diabetes mellitus with unspecified complications (principal); I10 Essential (primary) hypertension; C34.11 Malignant neoplasm of upper lobe, right bronchus or lung; G47.00 Insomnia, unspecified; N40.0 Benign prostatic hyperplasia without lower urinary tract symptoms; M51.369 Other intervertebral disc degeneration, lumbar region without mention of lumbar back pain or lower extremity pain; I47.19 Other supraventricular tachycardia; Z79.4 Long term (current) use of insulin; Z79.84 Long term (current) use of oral hypoglycemic drugs; Z79.899 Other long term (current) drug therapy; Z90.2 Acquired absence of lung [part of]
CPT/HCPCS: 36415; 80053; 83036; 96127; 99202

== ENCOUNTER 2024-11-25 10:30 | Outpatient (AMB) | payer MEDICARE, SELFPAY ==
--- OUTSIDE RECORDS SUMMARY | 2023-09-18 10:30 | XMS_ITS ---
Author Organization Gregory Cleveland III, MD Address [address] [place] [address] Care Team Providers Care Electrochemist Name Role Phone Trena Bentley ([place]) Primary Care Provider Un available Gregory Cleveland Unavailable [phone] Allergies Allergen (clinical drug ingredient) Drug/Non Drug [...] Date Provider Diagnosis Gregory Cleveland III, MD [address] [place] [address] [place] [address] 09/18/2023 Gregory Cleveland Former smoker Z87.89 1 [...] Months, Reason: ov review cxr Provider Name:Gregory Krausrne, 03/25/2025 03:15:00 PM, [address] [place] [address] [place] [address], [place], [address], Progress Notes * Jah CURTIS EDOB:09/1935 (87 yo M)Acc No.[id number]:09/18/2023 Progress Notes Patient: Jah [place] Provider: Elaine Cleveland MD :1935 A ge:87 Y S ex:Male Date:09/18/2023 Address:[facility] [id number] Pcp:Javier Rosales MD Subjective: * Chief Complaints: [...] x-cigarette smoker Anselmo hernandez was born in [facility]. He is but and his lives in [place]. He has 2 sons and 1 daughter and no grandchildren. 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 * Medications: T akingStool Softener Xarelto 20 [...] Examination: G eneral Examination: GENERAL APPEARANCE: p kirstie, well nourished, well developed, in no acute [...] true * Provider: Elaine Cleveland MD Date: 0 09/18/2023 Generated for Rosana zavala/Lucy/eTvalentinasmitting on: 0 11/25/2024 11:30 AM EDT History and Physical Notes * HPI [...]
--- NOTE | 2024-11-25 10:37 | A.OFFVIS_ITS ---
Vital Signs 11/25/24 10:38 Height 6 ft 1 in Weight 180 lb 12.465 oz BMI 23.8 BP 132/66 Blood Pressure Location Lt brachial Position Sitting Pulse 65 Pulse Source Monitor Intake Visit Reasons: 1 yr f/up Allergies No Known Allergies (No Known Allergies*) Allergy (Verified 09/26/24 14:55) Medication List - Last Reconciled 11/25/24 by Kris Brush MD amlodipine 5 mg PO DAILY carvedilol 6.25 mg PO BID cholecalciferol (vitamin D3) 25 mcg PO DAILY finasteride (Proscar) 5 mg PO DAILY 90 days flash glucose sensor (FreeStyle Susan 14 Day Sensor kit) As directed FreeStyle Susan 3 Plus Sensor (blood-glucose sensor) every 15 daus NS FreeStyle Susan 3 [place] (blood-glucose,stunt driver,cont) As directed NS insulin degludec (Tresiba FlexTouch U-100 insulin) 36 units (0.36 mL) subcut DAILY metformin ER 500 mg PO BID pen needle, diabetic As directed rivaroxaban (Xarelto) 20 mg PO DAILY tamsulosin 0.8 mg PO DAILY trazodone 50 mg PO BEDTIME PRN HPI Comments Details: Jah is here for follow-up regarding atrial arrhythmias. To recall, in 2015, he underwent right upper lobectomy as well as mediastinal lymphadenectomy for lung cancer. That was incidentally detected after routine imaging for fall. Postoperatively, he developed atrial arrhythmias that appeared to be atrial tachycardia. Possible short bursts of atrial fibrillation. Then in 2017, he had resection of metastatic lesion to the brain. Subsequently admitted with acute pulmonary embolism. Then again had recurrent atrial arrhythmias suspected to be atrial tachycardia versus flutter/fibrillation. Then put on amiodarone. He is currently on carvedilol and Xarelto. Since last seen, no new concerns. He states he feels good. 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) USHA (obstructive sleep apnea) Type 2 diabetes mellitus Hypertension, essential Atrial fibrillation Pulmonary embolism, bilateral (~2017) Surgical History History of colonoscopy History of surgery on right wrist History of rotator cuff surgery History of brain surgery (~02/2017) History of lobectomy of lung (~04/2015) Family History Mother Breast cancer Myocardial infarction Father COPD (chronic obstructive pulmonary disease) Brother Myocardial infarction Social History Housing: House Patient Tobacco Use Status: Former Tobacco user e-Cigarette/Vaping Use: Former Use service: No Current occupational status: retired Cognitive needs: No Hearing needs: No Vision needs: Yes (rx glasses) Review of Systems Const Denies weakness ENT Denies dizziness Card Denies chest pain, Denies chest pain with activity, Denies syncope, Denies rapid heart rate, Denies pedal edema, Denies edema, Denies leg edema, Denies lightheadedness, Denies palpitations, Denies dyspnea, Denies dyspnea on exertion and Denies orthopnea Resp Denies cough, Denies dyspnea and Denies dyspnea on exertion GI Denies hematochezia and Denies change in stool character Musc Denies abnormal gait, Denies muscle cramps, Denies muscle weakness, Denies numbness, Denies radiating pain into limb and Denies tingling Neuro Denies abnormal gait, Denies dizziness, Denies syncope, Denies numbness, Denies tingling and Denies weakness Endo Denies palpitations Physical Exam Vital Signs: Last Vital Signs Pulse 65 11/25/24 10:38 BP 132/66 11/25/24 10:38 BMI result Body Mass Index 23.8 Office Procedures EKG Details: EKG with underlying sinus rhythm at 65/Min; supraventricular and ventricular ectopy; cannot exclude old inferior infarct; borderline ND prolongation to 216 millisecond; [place]. [address]-[id number], Complete Assessment & Plan Assessment & Plan (1) Atrial arrhythmia: Code(s): I49.8 - Other specified cardiac arrhythmias Category: Medical Plan: Suspected to be some combination of atrial tachycardia, flutter, fibrillation. These were mainly seen during hospitalization for acute issues like lobectomy, pulmonary embolus among others. No recent issues. Remains on beta-blockers and anticoagulation. (2) Hypertension, essential: Code(s): I10 - Essential (primary) hypertension Category: Medical Plan: On amlodipine. Stable. Plan Discussion Notes During the visit, we discussed the patient's current health status, including his stable atrial fibrillation and hypertension management with Carvedilol, Amlodipine and a blood thinner. We reviewed his lung cancer history, noting the absence of recurrence. The patient was advised to maintain his physical activity level. Patient was informed and verbally consented to the use of an ambient scribe for clinic note documentation during this visit. Total time spent including review of data, counseling, documentation, coordination of care-31 minutes. Patient Instructions: - Continue taking your blood thinner and Carvedilol as prescribed. - Maintain your daily walking routine, adjusting as needed for comfort. - Follow up with routine imaging as scheduled to monitor for any changes in your lung cancer status. Coding Level of Care Code Est Pt Level 4 (83356) Complex EM visit Add On G2211 Diagnoses Atrial arrhythmia I49.8 Hypertension, essential I10 CPT Codes EKG - CPT: 76077-[id number], Complete ([id number])
[2024-11-25 10:38] VITALS: BP 132/66; PULSE 65; BMI 23.8
--- OUTSIDE RECORDS SUMMARY | 2024-11-25 11:31 | XMS_ITS | Patient Health Record ---
Author Organization [facility] Address [address] [place] [address] Care Team Providers Care Patch Finisher Name Role Phone Javier Rosales MD Primary Care Provider Landry Pineda Unavailable [phone] Reason For Referral No Information Medications Medication SIG (Take, Route, Frequency, Duration) Notes Start Date End Date Status Aspirin 81 MG 1 tablet Orally Once a day; Duration: 30 day(s) Unknown Glimepiride 4 MG 1 tablet with breakf ast or the first main meal of the day Orally Once a day; Duration: 30 day(s) Active metFORMIN HCl 500 MG 1 tablet with meals Orally QID; Duration: 30 day(s) Active Lisinopril-hydroCHLOROthia zide 20-25 MG 1 tablet Orally BID; Duration: 30 day(s) Active Avapro Unknown Byetta 10 MCG Pen Un known Diovan 320 MG 1 tablet Orally Once a day; Duration: 30 day(s) Active Amaryl Unknown Immunizations Vaccine Route Administration Date Status Comme nts Influenza Unknown 12/10/2015 Administered Social History Tobacco use other than smoking: Question Answer Notes Are you an other tobacco user? No Problems Problem Type SNOMED Code ICD Code Onset Dates Problem Status W/U Status Risk Notes Problem Acquired hallux valgus (37797039) Hallux valgus (acquired), left foot (M20.12) Active confirmed Plan Of Treatment Pending Test Test Name Order Date [id number] NAIL, 1-5 03/09/2011 [id number]-VXON SKIN LESIONS, 2 TO 4 03/09/20 11 Insurance Providers Payer Name Payer Address Payer Phone Subscriber Number Group Number Insured Name Patient Relationship to Insured Coverage Start Date Coverage End Date Medicare National [employer] [address] [place] [phone] [id number] Jah Ayala Self - patient is the insured [facility] All Others [address] [place] [address] [phone] [id number] Daryl felix Jah Self - patient is the insured Medical (General) History Medical History History ICD Code mumps measles hypertension diabetic Chicken pox Arthritis Cancer Surgical History Surgery Date(Month/Year) right rotator cuff 2009 lung surgery 2015
--- OUTSIDE RECORDS SUMMARY | 2024-11-25 11:31 | XMS_ITS | Patient Health Record ---
Author Organization [facility] Address [address] [place] [address] Care Team Providers Care Tiger Machine Operator Name Role Phone Connie (RETIRED) Javier FARIA Primary Care Provide Eusebio Birch Jr Unavailable Reason For Referral No Information Medications Medication SIG (Take, Route, Frequency, Duration) Notes Start Date End Date Status Colyte with Flavor Packs 240 GM As directed Orally Over the specified time. for 1 day(s) 08/09/2013 Active Multi Vitamin/Minerals Active Aspir-81 82mg Active Diovan 320mg Active metFORMIN HCl ER 500mg Active Glimepiride 4mg Acti ve Lisinopril 20/25mg A ctive Problems Problem Type SNOMED Code ICD Code Onset Dates Problem Status W/U Status Risk Notes Problem Colon cancer screening (V76.51) Active confirmed Plan Of Treatment No Information Insurance Providers Payer Name Payer Address Payer Phone Subscriber Number Group Number Insured Name Patient Relationship to Insured Coverage Start Date Coverage End Date MEDICARE OF [place] [address] [place] [address] [id number] RAFAELA RATLIFF Self - patient is the insured [facility] [address] [place], [place] [id number] RAFAELA RATLIFF Self - patient is the insured Medical (General) History Medical History History ICD Code diabetes mellitus hypertension Surgical History Surgery Date(Month/Year) oral surgery 1991 rotator cuff tear repair 2010
== END 2024-11-25 11:02 | disposition home or self-care (01) ==
LOC: HO.HCS 10:31
PROVIDERS: PCP Internal Medicine; Visit Provider Internal Medicine
DX: I49.8 Other specified cardiac arrhythmias (principal); I10 Essential (primary) hypertension
CPT/HCPCS: 93010; 99214; G2211

== ENCOUNTER → 2024-11-25 10:30 | Outpatient (BNVA) | payer MEDICARE, SELFPAY | PROVIDERS: PCP Internal Medicine; Visit Provider Internal Medicine | DX: I10 Essential (primary) hypertension (principal); I49.8 Other specified cardiac arrhythmias; Z79.899 Other long term (current) drug therapy; Z87.891 Personal history of nicotine dependence | CPT/HCPCS: 93005; 99212 ==

== ENCOUNTER 2024-12-05 07:20 | Outpatient (REF) | payer MEDICARE, SELFPAY ==
--- OUTSIDE RECORDS SUMMARY | 2024-03-25 10:30 | XMS_ITS ---
Author Organization Gregory Cleveland III, MD Address [address] [place] [address] Care Team Providers Care Air Sealing Technician Name Role Phone Trena Bentley ([place]) Primary Care Provider Un available Gregory Cleveland Unavailable [phone] Allergies Allergen (clinical drug ingredient) Drug/Non Drug [...] Problem Status W/U Status Risk Notes Problem [id number] Anticoagulated (Z79.01) Active confirmed He remains on [...] Date Provider Diagnosis Gregory Cleveland III, MD [address] [place] [address] [address] [facility] [address] 03/25/2024 Gregory Cleveland Former smoker Z87.89 1 [...] Details Follow Up: In six months, Re nican: Regular check-up Provider Name:Gregory Cleveland, 12/18/2024 02:45:00 PM, [address] [place] [address] [address], [place], [address], Provider Name:Gregory Cleveland, 06/17/2025 02:00:00 PM, [address] [place] [address] [address], [place], [address], Progress Notes * Jah CURTIS EDOB:09/1935 (88 yo M)Acc No.[id number]:03/25/2024 Progress Notes Patient: Jah ROSS Provider: Elaine Cleveland MD :1935 A ge:88 Y S ex:Male Date:03/25/2024 Address:[facility] [id number] Pcp:Javier Rosales MD Subjective: * Chief Complaints: [...] x-cigarette smoker Anselmo hernandez was born in [facility]. He is but and his lives in [place]. He has 2 sons and 1 daughter and no grandchildren. 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 * Medications: T akingXarelto 20 MG Tablet [...] Date: 05/26/2023 Generated for Rosana zavala/Lucy/Joeitting on: 0 12/05/2024 07:23 AM EDT History and Physical Notes * [...]
--- OUTSIDE RECORDS SUMMARY | 2024-09-23 11:00 | XMS_ITS ---
Author Organization Gregory Cleveland III, MD Address [address] [place] [address] Care Team Providers Care Head Charger Name Role Phone Anya Bentley (Nash) Primary Care Provider Un available Gregory Cleveland Unavailable [phone] Allergies Allergen (clinical drug ingredient) Drug/Non Drug [...] Date Provider Diagnosis Gregory Cleveland III, MD [address] [place] [address] [place] [address] 09/23/2024 Gregory Cleveland Former smoker Z87.89 1 [...] Up: 6 Months, Reason: OV Provider Name:Gregory Cleveland, 12/18/2024 02:45:00 PM, [address] [place] [address] [address], [place], [address], Provider Name:Gregory Cleveland, 06/17/2025 02:00:00 PM, [address] [place] [address] [address], [place], [address], Progress Notes * Jah CURTIS EDOB:09/1935 (88 yo M)Acc No.[id number]:09/23/2024 Progress Notes Patient: Jah ROSS Provider: Elaine Cleveland MD :1935 A ge:88 Y S ex:Male Date:09/23/2024 Address:[place] [id number] Pcp:Anya Bentley Subjective: * Chief Complaints: * N on-small cell carcinoma of lung with brain metastases.DiabetesHypertensionUreterolithiasisCOPDBenign prostatic hypertrophy * HPI: C OVID-19 Screening: fwent to [place],, oct x 1, anya ramirez,, no sob, shoulders good. He returns to the office for ongoing follow-up of his lung cancer. He is in remission after surgery and adjuvant treatment. He is driving automobile without difficulty. He experiences nocturia once a night. He recently took a trip to [place] with his family. He denies any shortness [...] x-cigarette smoker Anselmo hernandez was born in [facility]. He is but and his lives in [place]. He has 2 sons and 1 daughter and no grandchildren. 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 * Medications: T akingXarelto 20 MG Tablet [...] Cleveland MD Date: 0 09/23/2024 Generated for Printi ng/Favenkatag/eTransmitting on: 0 12/05/2024 07:24 AM EDT History and Physical Notes * [...]
--- OUTSIDE RECORDS SUMMARY | 2024-12-04 06:45 | XMS_ITS ---
Author Organization Gregory Cleveland III, MD Address [address] [place] [address] Care Team Providers Care Golf Course Keeper Name Role Phone Trena Bentley ([place]) Primary Care Provider Un available Gregory Cleveland Unavailable [phone] Allergies Allergen (clinical drug ingredient) Drug/Non Drug Allergy documented on EMR Reaction Allergy Type Onset Date Status No Known Drug Allergy Unknown Drug Allergy Active REASON FOR VISIT Diabetes, Non small cell [...] Date Provider Diagnosis Gregory Cleveland III, MD [address] [place] [address] [place] [address] 12/04/2024 Gregory Cristofer Former smoker Z87.89 1 ; Overweight E66.3 [...] PSA, TOTAL 12/04/2024 CBC w DIFF 12/04/2024 Lipid Panel 12/04/2024 Hemoglobin A1c 12/04/2024 Next Appt Details Follow Up: 2 Weeks,6 Months, Reason: Telehealth, OV Provider Name:Gregory Cleveland, 12/18/2024 02:45:00 PM, [address] [place] [address] [address], [place], [address], Provider Name:Gregory Cleveland, 06/17/2025 02:00:00 PM, [address] [place] [address] [address], [place], [address], Progress Notes * Jah CURTIS EDOB:09/1935 (88 yo M)Acc No.[id number]:12/04/2024 Progress Notes Patient: Jah ROSS Provider: Elaine Cleveland MD :1935 A ge:88 Y S ex:Male Date:12/04/2024 Address:[place] Pcp:Trena Bentley ([place]) Subjective: * Chief Complaints: [...] a Holter monitor. He recently saw his child nurse and found him to be in good [...] x-cigarette smoker Anselmo hernandez was born in [facility]. He is but and his lives in [place]. He has 2 sons and 1 daughter and no grandchildren. 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 * Medications: T akingXarelto 20 MG Tablet [...] true * Provider: Elaine Cleveland MD Date: 12/04/2024 Generated for Rosana zavala/Lucy/Beatrizransmitting on: 12/05/2024 07:23 AM EDT History and Physical [...]
--- OUTSIDE RECORDS SUMMARY | 2024-12-05 07:23 | XMS_ITS | Patient Health Record ---
Author Organization [facility] Address [address] [place] [address] Care Team Providers Care Alley Cleaner Name Role Phone Connie (RETIRED) Javier FARIA [...] Date MEDICARE OF [place] [address] [place] [address] [id number] RAFAELA RATLIFF Self - patient is the insured [facility] [address] [place], [place] [phone] [id number] RAFAELA RATLIFF Self - patient is the insured Medical (General) History Medical History History ICD Code diabetes mellitus hypertension Surgical History Surgery Date(Month/Year) oral surgery 1991 rotator cuff tear repair 2010
--- OUTSIDE RECORDS SUMMARY | 2024-12-05 07:23 | XMS_ITS | Patient Health Record ---
Author Organization [facility] Address [address] [place] [address] Care Team Providers Care Core Paster Name Role Phone Javier Rosales MD Primary Care Provider Landry Pineda Unavailable [phone] Reason For Referral No Information Medications Medication [...] Status Risk Notes Problem Acquired hallux valgus (03585926) Hallux valgus (acquired), left foot (M20.12) Active confirmed Plan Of Treatment Pending Test Test Name Order Date [id number]-[id number] NAIL, 1-5 03/09/2011 [id number]-ZGKG SKIN LESIONS, 2 TO 4 03/09/20 11 Insurance Providers Payer Name Payer Address Payer Phone Subscriber Number Group Number Insured Name Patient Relationship to Insured Coverage Start Date Coverage End Date Medicare [employer] [address] [place] [phone] [id number] Jah Ayala Self - patient is the insured [facility] [employer] Others [address] [place] [address] [phone] [id number] Daryl felix Jah Self - patient is the insured Medical (General) History Medical History History ICD Code mumps measles hypertension diabetic Chicken pox Arthritis Cancer Surgical History Surgery Date(Month/Year) right rotator cuff 2009 lung surgery 2015
--- OUTSIDE RECORDS SUMMARY | 2024-12-05 07:23 | XMS_ITS | Patient Health Record ---
Author Organization Gregory Cleveland III, MD Address [address] [place] [address] Care Team Providers Care Computational Physicist Name Role Phone Trena Bentley (Liberal) Primary Care Provider Un available Gregory Cleveland Unavailable [phone] Allergies Allergen (clinical drug ingredient) Drug/Non Drug Allergy documented on EMR Reaction Allergy Type Onset Date Status No Known Drug Allergy Unknown Drug Allergy Active Results Component Value Reference Range Notes XR chest 2V Reviewed date:02/20/2024 08:47:54 AM Interpretation: Performing Lab: Notes/Report: [address] [address] XRay Report Signed Patient: Jah Curtis MR#: [id number] : 1935 Acct:[id number] Age/Sex: 88 / M ADM Date: 02/12/24 Loc: [facility] Attending Dr: Javier Rosales MD Ordering Physician: Gregory Cleveland MD Date of Service: 02/12/24 Procedure(s): XR chest 2V Accession Number(s): [id number] cc: Gregory Cleveland MD; Javier Rosales MD [...] Britton MD in OV> 02/12/24 1525 DD/ 133 TD/TT: 02/12/24 1351 Career Developer: [place] [id number] XRay Report Signed Patient: Elaine Curtis MR#: [id number] : 1935 Acct:[id number] Age/Sex: 88 / M ADM Date: 02/12/24 Loc: [facility] Attending Dr: Javier Rosales MD Ordering Physician: Gregory Cleveland MD Date of Service: 02/12/24 Procedure(s): XR chest 2V Accession Number(s): [id number] cc: Gregory Cleveland MD; Javier Rosales MD [...] Jesus Manuel Britton MD in OV> 02/12/24 152 DD/ 1331 TD/TT: 02/12/24 1351 Career Developer: Reason For Referral No Information Medications Medication SIG (Take, Route, Frequency, Duration) Notes Start Date End Date Status Xarelto 20 MG 1 tablet Orally Once a day Active Tamsulosin HCl 0.4 MG TAKE 2 CAPSULES [...] Problem Status W/U Status Risk Notes Problem 8162542 Former smoker (Z87.891) Active confirmed He has a plan to prevent relapse in times of stress and illness. He is highly motivated not to smoke. Problem 36549774 DM (diabetes mellitus) (E11.9) Active confirmed His fastin g blood glucose level was 73. His A1c is 6.7. He is free of symptoms. I will refer him back to his primary care physician for management of his diabetes. Problem 790953410 Overweight (E66.3) Active confirmed His body mass index is 26.6 and he has lost several pounds. I recommend a gradual weight loss until about a mass index is in the normal range. We discussed the elements of a weight loss diabetic diet. Problem 871156106 Thrombocytopenia (D69.6) Active confirmed His platelet count is 189. He is intermittently low, but usually normal. No treatment is necessary at this time. The value will be observed. Problem 32978472 Hypercalcemia (E83.52) Active confirmed His calcium level is now normal at 9.5. Problem 453584764 Paroxysmal atria l fibrillation (I48.0) Active confirmed He was in sinus rhythm today with no symptoms. His medications were continued without change. Problem 24191362 Ureterolithiasis (N20.1) Active confirmed He has had no episodes of renal colic. Since his last visit. He has had no hematuria or dysuria. Problem 90123693 HTN (hypertension) (I10) Active confirmed His blood pressure was slightlyy elevated at 145/85 today. I recommended sodium restriction, weight loss, but made no change in his medications.He was referred back to primary care Problem 927997739 Anticoagulated (Z79.01) Active confirmed He remains on Xarelto without bleeding. He has been compliant with his medication. Problem 68178847 COPD (chronic obstructive pulmonary disease) (J44.9) Active confirmed He is mildl y symptomatic, but able to conduct all of the activities of daily life without supplemental oxygen. Problem 544490895 Cholelithiasis (K80.20) Active confirmed There is no right upper quadrant tenderness and he feels well today. His diet is unrestricted. His appetite is good Problem 260710676 Non-small cell carcinoma of lung (C34.90) Active confirmed He remains free of recurrent disease with a normal mental status. Problem 381933146 Rotator cuff tea r (M75.100) Active confirmed The pain is stable but he does not wish to have any treatment at this time. Problem 830125841 Benign prostatic hyperplasia with lower urinary tract symptoms (N40.1) Active confirmed He is stable with nocturia once or twice a night. No change in his regimen is necessary. Problem 89144270 Brain metastasis (C79.31) Active confirmed He reports no new neurological symptoms. He has had no headaches or weakness or seizures or episodes of syncope. Surveillance will continue. 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 He has had no recurrent DVT or pulmonary emboli. His breathing is unremarkable today. He suffered a deep venous thrombosis of his right lower extremity with bilateral pulmonary emboli in March of 2017. He has been anticoagulated since. Vital Signs Heart Rate 61 /min 12/04/2024 Temperature 98.4 degrees Fahrenheit 12/04/2024 Blood pressure diastolic 85 mm Hg 12/04/2024 Height 71 in 12/04/2024 Blood pressure systolic 145 mm Hg 12/04/2024 Weight 183 lbs 12/04/2024 BMI 25.52 kg/m2 12/04/2024 Encounters Encounter Location Date Provider Diagnosis Gregory Cleveland III, MD [address] [place] [address] [address] [place] [address] 03/25/2024 Gregory Cleveland Former smoker Z87.89 1 ; Non-small cell carcinoma of lung C34.90 ; DM (diabetes mellitus) E11.9 ; HTN (hypertension) I10 ; Rotator cuff tear M75.100 ; Overweight E66.3 ; Ureterolithiasis N20.1 ; COPD (chronic obstructive pulmonary disease) J44.9 ; Paroxysmal atrial fibrillation I48.0 ; Other chronic pulmonary embolism without acute cor pulmonale I27.82 and Anticoagulated Z79.01 Gregory Cleveland III, MD [address] [place] [address] [address] [place] [address] 09/23/2024 Gregory Cristofer Former smoker Z87.89 1 ; Non-small cell carcinoma of lung C34.90 ; DM (diabetes mellitus) E11.9 ; HTN (hypertension) I10 ; Rotator cuff tear M75.100 ; Ureterolithiasis N20.1 and Thrombocytopenia D69.6 Gregory Cleveland III, MD [address] [place] [address] [address] [place] [address] 12/04/2024 Gregory Cristofer Former smoker Z87.89 1 [...] disease with a normal mental status. 09/23/2024 Former smoker (ICD-1 0 - Z87.891) He has a plan to prevent relapse in times of stress and illness. He is highly motivated not to smoke. 09/23/2024 Non-small cell carcinoma of lung (ICD-10 - C34.90) He remains free of recurrent disease with a normal mental status. 12/04/2024 Former smoker (ICD-1 0 - Z87.891) He [...] of a weight loss diabetic diet. 03/25/2024 DM (diabetes mellitu s) (ICD-10 - E11.9) His fasting blood glucose level was 73. His A1c is 6.7. He is free of symptoms. I will refer him back to his primary care physician for management of his diabetes. 09/23/2024 DM (diabetes mellitu s) (ICD-10 - E11.9) His fasting blood glucose level was 73. His A1c is 6.7. He is free of symptoms. I will refer him back to his primary care physician for management of his diabetes. 12/04/2024 DM (diabetes mellitu s) (ICD-10 - E11.9) [...] made no change in his medications. 09/23/2024 HTN (hypertension) (ICD-10 - I10) His blood pressure is stable at 106/56 and into normal range today. I recommended sodium restriction, weight loss, but made no change in his medications. 12/04/2024 HTN (hypertension) (ICD-10 - I10) His blood pressure was slightlyy elevated at 145/85 today. I recommended sodium restriction, weight loss, but made no change in his medications.He was referred back to primary care 03/25/2024 Rotator cuff tear (ICD-10 - M75.100) The pain is stable but he does not wish to have any treatment at this time. 09/23/2024 Rotator cuff tear (ICD-10 - M75.100) The pain is stable but he does not wish to have any treatment at this time. 12/04/2024 Non-small cell carcinoma of lung (ICD-10 - C34.90) He remains free of recurrent disease with a normal mental status. 03/25/2024 Overweight (ICD-10 - E66.3) His body mass index is 26.6 and he has lost several pounds. I recommend a gradual weight loss until about a mass index is in the normal range. We discussed the elements of a weight loss diabetic diet. 09/23/2024 Ureterolithiasis (ICD-10 - N20.1) He has had no episodes of renal colic. Since his last visit. He has had no hematuria or dysuria. 12/04/2024 Rotator cuff tear (ICD-10 - M75.100) The pain is stable but he does not wish to have any treatment at this time. 03/25/2024 Ureterolithiasis (ICD-10 - N20.1) He has had no episodes of renal colic. Since his last visit. He has had no hematuria or dysuria. 09/23/2024 Thrombocytopenia (ICD-10 - D69.6) His platelet count is 189. He is intermittently low, but usually normal. No treatment is necessary at this time. The value will be observed. 12/04/2024 Paroxysmal atrial fibrillation (ICD-10 - I48.0) He was in sinus rhythm today with no symptoms. His medications were continued without change. 03/25/2024 COPD (chronic obstructive pulmonary disease) (ICD-10 - J44.9) He is mildly symptomatic, but able to conduct all of the activities of daily life without supplemental oxygen. 12/04/2024 Other chronic pulmonary embolism without acute [...] His medications were continued without change. 12/04/2024 Benign prostatic hyperplasia with lower urinary tract symptoms (ICD-10 - N40.1) He is stable with nocturia once or twice a night. No change in his regimen is necessary. 03/25/2024 Other chronic pulmonary embolism without acute [...] compliant with his medication. Plan Of Treatment Pending Test Test Name Order Date PROFILE, FASTING (COMPREHENSIVE METABOLI C) 12/04/2024 PROFILE, FASTING (COMPREHENSIVE METABOLI C) 02/22/2021 PROFILE, RANDOM (COMPREHENSIVE METABOLIC ) 09/18/2018 PROFILE, RANDOM (COMPREHENSIVE METABOLIC ) 07/27/2020 PROFILE, RANDOM (COMPREHENSIVE METABOLIC ) 07/17/2018 PROFILE, RANDOM (COMPREHENSIVE METABOLIC ) 05/15/2018 PROFILE, RANDOM (COMPREHENSIVE METABOLIC ) 05/08/2019 PROFILE, RANDOM (COMPREHENSIVE METABOLIC ) 06/21/2021 PROFILE, RANDOM (COMPREHENSIVE METABOLIC ) 02/19/2019 HEMOGLOBIN A1C (GLYCOHEMOGLOBIN) 019 HEMOGLOBIN A1C (GLYCOHEMOGLOBIN) 019 HEMOGLOBIN A1C (GLYCOHEMOGLOBIN) 022 HEMOGLOBIN A1C (GLYCOHEMOGLOBIN) 021 HEMOGLOBIN A1C (GLYCOHEMOGLOBIN) 019 CREATININE CLEARANCE 06/08/2015 CREATININE 06/08/2015 MAGNESIUM 06/21/2021 BRAIN NATRIURETIC PEPTIDE (BNP) 07/13/19 22 PSA, TOTAL 02/22/2021 PSA, TOTAL 06/21/2021 PSA, TOTAL 12/04/2024 MICROALBUMIN, RANDOM 02/22/2021 CBC w DIFF 05/15/2018 CBC w DIFF 02/19/2019 CBC w DIFF 06/21/2021 CBC w DIFF 02/22/2021 CBC w DIFF 12/04/2024 CBC w DIFF 07/27/2020 CBC w DIFF 09/18/2018 CBC w DIFF 07/17/2018 CBC w DIFF 05/08/2019 SED RATE (ESR) 05/08/2019 XR CHEST 2 VIEW PA & LAT 05/15/2018 XR CHEST 2 VIEW PA & LAT 07/17/2018 XR LUMBAR SPINE 4+ VIEWS 07/17/2018 VITAMIN D 25-OH TOTAL 02/19/2019 VITAMIN D 25-OH TOTAL 09/18/2018 Glucose Fasting 07/12/2021 Lipid Panel 02/22/2021 Lipid Panel 12/04/2024 Hemoglobin A1c 12/04/2024 Next Appt Details Provider Name:Gregory Cleveland, 12/18/2024 02:45:00 PM, [address] [place] [address] [address], [place], [address], Provider Name:Gregory Cleveland, 06/17/2025 02:00:00 PM, [address] [place] [address] [address], [place], [address], Insurance Providers Payer Name Payer Address Payer Phone Subscriber Number Group Number Insured Name Patient Relationship to Insured Coverage Start Date Coverage End Date MEDICARE NGS [address] [place] [address] [id number] Jah Ayala Self - patient is the insured 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
[2024-12-05 07:33] LABS: MANUAL DIFF FLAG NO
[2024-12-05 08:01] LABS: Hematocrit 43.6 % (42.0-52.0); Hemoglobin 15.2 g/dl (14.0-18.0); Imm Gran Abs Auto 0.02 X10*3/uL (0.00-0.03); Imm Gran Pct Auto 0.3 % (0.0-0.4); Lymphocytes Absolute Auto 1.4 X10*3/uL (1.2-4.9); Mean Corpuscular HGB Conc 34.9 g/dl (31.0-36.0); Mean Corpuscular Hemoglobin 29.2 pg (27.0-33.0); Mean Corpuscular Volume 83.7 fL (80.0-98.0); NRBC Abs Auto 0.000 X10*3/uL (0.0-0.012); NRBC Pct Auto 0.0 /100WBC (0.0-0.2); Platelet Count 149 X10*3/uL (160-400); Red Blood Count 5.21 X10*6/uL (4.60-5.80); White Blood Count 5.9 X10*3/uL (4.8-10.8)
[2024-12-05 08:32] LABS: Hemoglobin A1C 197.9433 umol/L; Total Hemoglobin (HGBA1C) 3879.8546 umol/L
[2024-12-05 08:39] LABS: Alanine Aminotransferase 23 U/L (0-40); Albumin Level 4.4 g/dL (3.5-5.0); Alkaline Phosphatase 89 U/L (39-117); Anion Gap 9 (12-20); Aspartate Amino Transferase 25 U/L (5-37); Blood Urea Nitrogen 20 mg/dL (9-16); Calcium 9.1 mg/dL (8.4-10.2); Carbon Dioxide 32 mmol/L (22-29); Chloride 104 mmol/L (96-108); Cholesterol 129 mg/dL (<200); Estimated Glomerular Filt Rate > 60; HDL Cholesterol 28 mg/dL (>40); Potassium 4.3 mmol/L (3.3-5.1); Sodium 141 mmol/L (135-145); Total Protein 7.0 g/dL (6.5-8.0); Triglycerides 112 mg/dL (<150)
[2024-12-05 08:52] LABS: PSA,Total (Free>4and<10) 1.21 ng/mL (0.00-4.00)
[2024-12-05 08:53] LABS: Prostate Specific Antigen 1.20 ng/mL (<0.05-4.0)
== END 2024-12-05 07:21 | disposition home or self-care (01) ==
LOC: HO.LAB 07:20
PROVIDERS: Absent Provider Internal Medicine Medical Oncology; PCP Internal Medicine; Visit Provider Urology
DX: Z12.5 Encounter for screening for malignant neoplasm of prostate (principal); E11.9 Type 2 diabetes mellitus without complications; I10 Essential (primary) hypertension; C34.90 Malignant neoplasm of unspecified part of unspecified bronchus or lung; E66.3 Overweight; D69.6 Thrombocytopenia, unspecified; R97.20 Elevated prostate specific antigen [PSA]; N40.0 Benign prostatic hyperplasia without lower urinary tract symptoms
CPT/HCPCS: 36415; 80053; 80061; 83036; 84153; 85025

== ENCOUNTER 2025-01-09 13:47 | Outpatient (AMB) | payer MEDICARE, SELFPAY ==
--- OUTSIDE RECORDS SUMMARY | 2023-09-18 10:30 | XMS_ITS ---
Author Organization Gregory Cleveland III, MD Address [address] [place] [address] Care Team Providers Care Production Coordinator Name Role Phone Trena Bentley ([place]) Primary Care Provider Un available Dr. Gregory Cleveland III Unavailable Allergies Allergen (clinical drug ingredient) Drug/Non Drug [...] Provider Diagnosis Gregory Cleveland III, MD [address] [place] [address] [place] [address] 09/18/2023 Gregory Cleveland Former smoker Z87.89 1 [...] Months, Reason: ov review cxr Provider Name:Gregory Cleveland , 06/17/2025 02:00:00 PM, [address] [place] [address] [address] [place] [address], [place], [address], Progress Notes * Jah CURTIS EDOB:09/1935 (87 yo M)Acc No.[id number]:09/18/2023 Progress Notes Patient: Jah Hughes Song Provider: Elaine Cleveland MD :1935 A ge:87 Y S ex:Male Date:09/18/2023 Address:[address] [place] [address] [id number] Pcp:Javier Rosales MD Subjective: * Chief Complaints: [...] dditional Findings: Tobacco Non-User E x-cigarette smoker H song was born in [facility]. He is but and his lives in [place]. He has 2 sons and 1 daughter and no grandchildren. 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 * Medications: T akingStool Softener Xarelto 20 [...] MD Date: 0 09/18/2023 Generated for Rosana zavala/Lucy/Sammy on: 1 03:26 PM EDT History and Physical Notes * [...]
--- OUTSIDE RECORDS SUMMARY | 2024-03-25 10:30 | XMS_ITS ---
Author Organization Gregory Cleveland III, MD Address [address] [place] [address] Care Team Providers Care Breadman Name Role Phone Trena Bentley (Jania) Primary [...] Problem Status W/U Status Risk Notes Problem [id number] Anticoagulated (Z79.01) Active confirmed He remains on [...] Date Provider Diagnosis Gregory Cleveland III, MD [address] [place] [address] [place] [address] 03/25/2024 Gregory Cleveland Former smoker Z87.89 1 [...] Provider Name:Gregory Cleveland , 06/17/2025 02:00:00 PM, [address] [place] [address] [facility] [place], [place], [address], Progress Notes * Jah CURTIS EDOB:09/1935 (88 yo M)Acc No.[id number]:03/25/2024 Progress Notes Patient: Jah ROSS Provider: Elaine Cleveland MD :1935 A ge:88 Y S ex:Male Date:03/25/2024 Address:[facility] [address] [place], [facility] Pcp:Javier Rosales MD Subjective: * Chief Complaints: [...] x-cigarette smoker Anselmo hernandez was born in [facility]. He is but and his lives in [place]. He has 2 sons and 1 daughter and no grandchildren. 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 * Medications: T akingXarelto 20 MG Tablet [...] true * Provider: Elaine Cleveland MD Date: 1 05/26/2023 Generated for Rosana zavala/Lucy/Joeitting on: 03:26 PM EDT History and Physical Notes [...]
--- OUTSIDE RECORDS SUMMARY | 2024-09-23 11:00 | XMS_ITS ---
Author Organization Gregory Cleveland III, MD Address [address] [place] [address] Care Team Providers Care Labor Relations Analyst Name Role Phone Anya Bentley (Jania) Primary Care Provider Un available Dr. Gregory Cleveland III Unavailable [phone] Allergies Allergen (clinical drug ingredient) Drug/Non Drug [...] Date Provider Diagnosis Gregory Cleveland III, MD [address] [place] [address] [address] [place], [place] [address] 09/23/2024 Gregory Cleveland Former smoker Z87.89 1 [...] Provider Name:Gregory Cleveland , 06/17/2025 02:00:00 PM, [address] [place] [address], [place] [address], [place], [address], Progress Notes * Jah CURTIS EDOB:09/1935 (88 yo M)Acc No.[id number]:09/23/2024 Progress Notes Patient: Jah ROSS Provider: Elaine Cleveland MD :1935 A ge:88 Y S ex:Male Date:09/23/2024 Address:[facility] [place], [id number] Pcp:Anya Bentley Subjective: * Chief Complaints: * N on-small cell carcinoma of lung with brain metastases.DiabetesHypertensionUreterolithiasisCOPDBenign prostatic hypertrophy * HPI: C OVID-19 Screening: fwent to [place],, jan x 1, anya ramirez,, no sob, shoulders good. He returns to the office for ongoing follow-up of his lung cancer. He is in remission after surgery and adjuvant treatment. He is driving automobile without difficulty. He experiences nocturia once a night. He recently took a trip to [place] with his family. He denies any shortness [...] x-cigarette smoker Anselmo hernandez was born in [facility]. He is but and his lives in [place]. He has 2 sons and 1 daughter and no grandchildren. 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 * Medications: T akingXarelto 20 MG Tablet [...] 09/23/2024 Generated for Albini sally/Lucy/eTransmitting on: 1 03:26 PM EDT History and [...]
--- OUTSIDE RECORDS SUMMARY | 2024-12-04 06:45 | XMS_ITS ---
Author Organization Gregory Cleveland III, MD Address [address] [place] [address] Care Team Providers Care Furniture Repairer Name Role Phone Trena Bentley ([place]) Primary Care Provider Un available Dr. Gregory Cleveland III Unavailable Allergies Allergen (clinical drug ingredient) Drug/Non Drug Allergy documented on EMR Reaction Allergy Type Onset Date Status No Known Drug Allergy Unknown Drug Allergy Active Results Component Value Reference Range Notes Lipid Panel Reviewed date:12/10/2024 04:49:55 AM Interpretation: Performing Lab:[facility], [address] [place] [phone] Notes/Report: Triglycerides 112 <150 mg/dL Desirable Triglyceride: [...] A1c Reviewed date:12/10/2024 04:49:55 AM Interpretation: Performing Lab:[facility], [address], [place] [address] Notes/Report: Hemoglobin A1c % 6.8 <6.0 % [...] average glucose, using the formula of the A1Q-Zobqyqp Average Glucose study (ADAG), Diabetes Care, Vol.31,#8, [...] Provider Diagnosis Gregory Cleveland III, MD [address] [place] [address] [address] [place], [place] [address] 12/04/2024 Gregory Krausrne Former smoker Z87.89 1 [...] Provider Name:Gregory Cleveland , 06/17/2025 02:00:00 PM, [address] [place] [address] DR, [place] [address], [place], [address], Progress Notes * ISAIAHJah KESSLER EDOB:09/1935 (88 yo M)Acc No.[id number]:12/04/2024 Progress Notes Patient: Jah ROSS Provider: Elaine Cleveland MD :1935 A ge:88 Y S ex:Male Date:12/04/2024 Address:[facility] [id number] Pcp:Trena Bentley ([place]) Subjective: * Chief Complaints: [...] a Holter monitor. He recently saw his enameler and found him to be in good [...] x-cigarette smoker Anselmo hernandez was born in [facility]. He is but and his lives in [place]. He has 2 sons and 1 daughter and no grandchildren. 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 * Medications: T akingXarelto 20 MG Tablet [...] 12/04/2024 Generated for Rosana zavala/Lucy/eTransmitting on: 1 03:26 PM EDT History and [...]
--- OUTSIDE RECORDS SUMMARY | 2024-12-18 10:45 | XMS_ITS ---
Author Organization Gregory Cleveland III, MD Address [address] [place] [address] [place] [address] Care Team Providers Care Bulb Grader Name Role Phone Trena Bentley ([place]) Primary Care Provider Un available Dr. Gregory Cleveland III [facility] [phone] Allergies Allergen (clinical drug ingredient) Drug/Non Drug [...] Date Provider Diagnosis Gregory Cleveland III, MD [address] [place] [address] [place] [address] 12/18/2024 Gregory Cleveland Former smoker Z87.89 1 [...] Provider Name:Gregory Cleveland , 06/17/2025 02:00:00 PM, [address] [place] [address] [address], [place], [address], Progress Notes * Jah CURTIS EDOB:09/1935 (89 yo M)Acc No.[id number]:12/18/2024 Patient: Jah ROSS Provider: Elaine Cleveland MD :1935 A ge:89 Y S ex:Male Date:12/18/2024 Address[facility] [address], [facility] Pcp:Trena Bentley ([place]) Subjective: * Chief Complaints: [...] of provider rendering services: { ...} [address] [facility] [address] [facility] [address] L ocation of patient: ina benoit listed [...] x-cigarette smoker Anselmo hernandez was born in [facility]. He is but and his lives in [place]. He has 2 sons and 1 daughter and no grandchildren. 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 * Medications: T akingXarelto 20 MG Tablet [...] 12/18/2024 Generated for Rosana zavala/Lucy/eTransmitting on: 1 03:26 PM EDT History and Physical Notes * HPI (History of Present Illness) Category Sub-Category Detail Notes Telehealth Location of [facility] ide rendering services:: {...} [address] [facility] [address] [facility] [address] Location of patient:: address listed in demographics [...]
--- NOTE | 2025-01-09 14:02 | MHC.OFFVIS ---
Intake Visit Reasons: 9m/PSA Intake Note: Patient is present for 9m/PSA 12/05 Total PSA:1.21 Urology Medication:FINASTERIDE,TAMSULOSIN Antibiotic Allergy:NONE Blood Thinner:RIVAROXABAN PVR:53ml Bridge Painter Helper Required: No Allergies No Known Allergies (No Known Allergies*) Allergy (Verified 01/09/25 14:02) HPI Comments Details: 01/09/25--Jah is an 89-year-old gentleman who is followed for BPH and elevated PSA he is prescribed Proscar and tamsulosin 0.8 mg daily. Presents 9 month follow-up PSA results 931979.21 bladder scan PVR today is 53 mL. History of Present Illness The patient is an 89-year-old male presenting with a follow-up for Benign Prostatic Hyperplasia (BPH) and elevated Prostate-Specific Antigen (PSA). He has been on Proscar and tamsulosin 0.8 mg daily, which have improved his urinary symptoms and quality of life. The patient's PSA level was previously above 5 but has now decreased to 1.21, which is within the normal range due to the medication regimen. The patient reports no burning or blood in the urine, indicating stable urinary symptoms. He has a history of two cancer diagnoses, from which he has recovered well, contributing to his current good health status. The patient experiences insomnia, for which trazodone has been tried but found ineffective. Results - PSA level: 1.21 (normal range 0-4) - Bladder scan: Post-void residual volume of 53 mL Plan 1. Benign Prostatic Hyperplasia (Bph) - Continue current medications: Proscar and tamsulosin. - Follow-up PSA testing in 11 months. 2. Elevated Prostate-Specific Antigen (Psa) - Monitor PSA levels with annual testing. 04/11/24--Jah is an 88-year-old male who presents for evaluation for BPH and elevated PSA. PMH Htn, IDDM. He is prescribed tamsulosin 0.8 mg daily. I have discussed a trial of Proscar 5 mg daily and further evaluation with renal/bladder ultrasound. And Repeat PSA in 4 months. I reviewed results--Renal US 09/20/23-- Kidneys WNL, trabeculated bladder. PSA--02/28/24--1.51--(PSA 05/17/03--5.01). Will cont tamsulosin and proscar. FU in 9 months 09/11/23--Jah is an 87-year-old male who presents for evaluation for BPH and elevated PSA. PMH Htn, IDDM. He denies significant voiding symptoms. He denies dysuria or gross hematuria. He states he sleeps during the night and then between about 6 and about 10:00 he will get up about 3 times to use the bathroom to urinate and have a bowel movements. He is prescribed tamsulosin 0.8 mg daily. I have reviewed PSA results, 05/17/2023--.. Prostate exam mild to moderately enlarged no suspicious nodules palpated. UA- leukocytes negative, blood negative. Bladder scan PVR 131 mL. I have discussed a trial of Proscar 5 mg daily. Will further evaluate with renal/bladder ultrasound. Repeat PSA in 4 months. 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) USHA (obstructive sleep apnea) Type 2 diabetes mellitus Hypertension, essential Atrial fibrillation Pulmonary embolism, bilateral (~2017) Surgical History History of colonoscopy History of surgery on right wrist History of rotator cuff surgery History of brain surgery (~02/2017) History of lobectomy of lung (~04/2015) Family History Mother Breast cancer Myocardial infarction Father COPD (chronic obstructive pulmonary disease) Brother Myocardial infarction Social History Housing: House Patient Tobacco Use Status: Former Tobacco user e-Cigarette/Vaping Use: Former Use service: No Current occupational status: retired Cognitive needs: No Hearing needs: No Vision needs: Yes (rx glasses) Review of Systems Const All systems reviewed & are unremarkable except as noted in HPI and below Reports no additional complaints Eyes Reports no additional complaints ENT Reports no additional complaints Card Reports no additional complaints Resp Reports no additional complaints GI Reports no additional complaints Reports as per HPI Musc Reports no additional complaints Skin/Breast Reports system reviewed and no additional complaints, except as documented Neuro Reports no additional complaints Psych Reports no additional complaints Endo Reports no additional complaints Marcial/Lymph Reports no additional complaints Aller/Immun Reports no additional complaints Assessment & Plan Assessment & Plan (1) Elevated PSA: Code(s): R97.20 - Elevated prostate specific antigen [PSA] Category: Medical (2) BPH with elevated PSA: Code(s): N40.0 - Benign prostatic hyperplasia without lower urinary tract symptoms; R97.20 - Elevated prostate specific antigen [PSA] Category: Medical Plan Plan 1. Benign Prostatic Hyperplasia (Bph) - Continue current medications: Proscar and tamsulosin. - Follow-up PSA testing in 11 months. 2. Elevated Prostate-Specific Antigen (Psa) - Monitor PSA levels with annual testing. Orders: Orders PSA,Total (Free>4and<10) 10 Months N40.0 - Benign prostatic hyperplasia without lower urinary tract symptoms, R97.20 - Elevated prostate specific antigen [PSA] Medications: New tamsulosin 0.8 mg (2 x 0.4 mg) PO DAILY 180 caps 3RF Refilled finasteride (Proscar) 5 mg PO DAILY 90 tabs 3RF 90 days Patient Instructions: The patient had an opportunity to ask questions regarding treatment plan. The patient expressed understanding and agreement with the above treatment plan. The patient is aware they should contact our office by phone for worsening of their current condition or the appearance of new symptoms. Compliance is encouraged with any medications and followup testing that is ordered. It is a privilege to be allowed the opportunity to participate in the urologic care of your patient. If you have any questions or concerns regarding treatment for the above conditions please do not hesitate to contact me. The office telephone contact is [phone]. This note is constructed in part using voice recognition software. While every effort has been made to ensure accuracy insole taper errors may have been included. Yours sincerely, Deion Berrios MD Scribe Plan - Not visible on output: Patient was informed and verbally consented to the use of an ambient scribe for clinic note documentation during this visit. Coding Level of Care Code Est Pt Level 3 (19967) Complex EM visit Add On G2211 Diagnoses Elevated PSA R97.20 BPH with elevated PSA N40.0; R97.20
--- OUTSIDE RECORDS SUMMARY | 2025-01-09 15:27 | XMS_ITS | Patient Health Record ---
Author Organization [facility] Address [address] [place] [address] Care Team Providers Care Hot Man Name Role Phone Javier Rosales MD Primary Care Provider Landry Pineda Unavailable [phone] Reason For Referral No Information Medications Medication [...] Status Risk Notes Problem Acquired hallux valgus (77140384) Hallux valgus (acquired), left foot (M20.12) Active confirmed Plan Of Treatment Pending Test Test Name Order Date [id number] NAIL, 1-5 03/09/2011 [id number] SKIN LESIONS, 2 TO 4 03/09/20 11 Insurance Providers Payer Name Payer Address Payer Phone Subscriber Number Group Number Insured Name Patient Relationship to Insured Coverage Start Date Coverage End Date Medicare National [employer]t [employer] [address] [place] [phone] [id number] Jah Ayala Self - patient is the insured [facility] All Others [address] [place] [address] [phone] [id number] Daryl felix Jah Self - patient is the insured Medical (General) History Medical History History ICD Code mumps measles hypertension diabetic Chicken pox Arthritis Cancer Surgical History Surgery Date(Month/Year) right rotator cuff 2009 lung surgery 2015
--- OUTSIDE RECORDS SUMMARY | 2025-01-09 15:27 | XMS_ITS | Patient Health Record ---
Author Organization Gregory Cleveland III, MD Address [address] [place] [address] Care Team Providers Care Piercing Artist Name Role Phone LuzmaFabián Trena (Jania) Primary Care Provider Un available Dr. Gregory Cleveland III Unavailable Allergies Allergen (clinical drug ingredient) Drug/Non Drug Allergy documented on EMR Reaction Allergy Type Onset Date Status No Known Drug Allergy Unknown Drug Allergy Active Results Component Value Reference Range Notes Lipid Panel Reviewed date:12/10/2024 04:49:55 AM Interpretation: Performing Lab:[facility], [address] [place] [phone] Notes/Report: Triglycerides 112 <150 mg/dL Desirable Triglyceride: [...] A1c Reviewed date:12/10/2024 04:49:55 AM Interpretation: Performing Lab:[facility], [address] [place] [phone] Notes/Report: Hemoglobin A1c % 6.8 <6.0 % [...] average glucose, using the formula of the [id number] Average Glucose study (ADAG), Diabetes Care, Vol.31,#8, 2007 XR chest 2V Reviewed date:02/20/2024 08:47:54 AM Interpretation: Performing Lab: Notes/Report: [address] [address] XRay Report Signed Patient: Jah Curtis MR#: [id number] : 1935 Acct:[id number] Age/Sex: 88 / M ADM Date: 02/12/24 Loc: HO.CORINAY Attending Dr: Javier Rosales MD Ordering Physician: Gregory Cleveland MD Date of Service: 02/12/24 Procedure(s): XR chest 2V Accession Number(s): [id number] cc: Gregory Cleveland MD; Javier Rosales MD [...] Jesus Manuel Britton MD 02/12/2024 03:25 PM [facility] Dictated By: Jesus Manuel Britton MD Signed By: <Electronically signed by Jesus Manuel Britton MD in OV> 02/12/24 1525 DD/ 1331 TD/TT: 02/12/24 1351 Compensation/Benefits Specialist: [address] [address] XRay Report Signed Patient: Jha Curtis MR#: [id number] : 1935 Acct:[id number] Age/Sex: 88 / M ADM Date: 02/12/24 Loc: HO.XRAY Attending Dr: Vilma Rosales MD Ordering Physician: Gregory Cleveland MD Date of Service: 02/12/24 Procedure(s): XR [address] st 2V Accession Number(s): [id number] cc: Gregory Cleveland MD; Javier Rosales MD [...] Jesus Manuel Britton MD 02/12/2024 03:25 PM [facility] Dictated By: Jesus Manuel Britton MD Signed By: <Electronically signed by Jesus Manuel Britton MD in OV> 02/12/24 1525 DD/ 1331 TD/TT: 02/12/24 1351 Compensation/Benefits Specialist: Complete Blood Count Auto Di ff Reviewed date:12/10/2024 04:49:55 AM Interpretation: Performing Lab:[facility], [address] [place] [phone] Notes/Report: White Blood Count 5.9 4.8-10.8 X10*3/uL Red Blood Count 5.21 4.60-5.80 X10*6/uL Hemoglobin 15.2 14.0-18.0 g/dl Hematocrit 43.6 42.0-52.0 % Mean Corpuscular Volume 83.7 80.0-98.0 fL Mean Corpuscular Hemoglobin 29.2 27.0-33.0 pg Mean Corpuscular HGB Conc 34.9 31.0-36.0 g/dl Red Cell Distribution Width 13.0 11.0-16.0 % Platelet Count 149 160-400 X10*3/uL Mean Platelet Volume 10.1 9.4-12.4 fL Neutrophils Percent Auto 61.2 45-73 % Imm Gran Pct Auto 0.3 0.0-0.4 % Lymphocytes Percent Auto 24.2 20-40 % Monocytes Percent Auto 8.9 2-11 % Eosinophils Percent Auto 4.4 0-4 % Basophils Percent Auto 1.0 0-2 % NRBC Pct Auto 0.0 0.0-0.2 /100WBC Neutrophils Absolute Auto 3.6 2.0-8.3 x10*3/u L Imm Gran Abs Auto 0.02 0.00-0.03 X10*3/uL Lymphocytes Absolute Auto 1.4 1.2-4.9 X10*3/u L Monocytes Absolute Auto 0.5 0.1-1.2 X10*3/uL Eosinophils Absolute Auto 0.3 0.0-0.4 X10*3/u L Basophils Absolute Auto 0.1 0.0-0.2 X10*3/uL NRBC Abs Auto 0.000 0.0-0.012 X10*3/uL Comprehensive Met. Panel Reviewed date:12/10/2024 04:49:55 AM Interpretation: Performing Lab:[facility], [address] [place] [phone] Notes/Report: Sodium 141 135-145 mmol/L Potassium 4.3 3.3-5.1 mmol/L Chloride 104 96-108 mmol/L Carbon Dioxide 32 22-29 mmol/L Anion Gap 9 12-20 Blood Urea Nitrogen 20 9-16 mg/dL Creatinine 0.98 0.5-1.4 mg/dL Estimated Glomerular Filt Rate > 60 Chronic Kidney Disease: Estimated GFR < 60 mL/min/1.73m2 Severe Kidney Disease: Estimated GFR < 15 mL/min/1.73m2 Glucose Random 131 60-115 mg/dL Calcium 9.1 8.4-10.2 mg/dL Bilirubin Total 0.4 0.0-1.0 mg/dL Aspartate Amino Transferase 25 5-37 U/L Alanine Aminotransferase 23 0-40 U/L Total Protein 7.0 6.5-8.0 g/dL Albumin Level 4.4 3.5-5.0 g/dL Alkaline Phosphatase 89 39-117 U/L Prostate Specific Antigen Reviewed date:12/10/2024 04:49:55 AM Interpretation: Performing Lab:[facility], [address] [place] [address], [place] [address] Notes/Report: Prostate Specific Antigen 1.20 <0.05-4.0 ng/mL PSA methodology: Garcia Alinity i Chemiluminescent Microparticle Immunoassay (CMIA) Reason For Referral No Information Medications Medication SIG (Take, Route, Frequency, Duration) Notes Start Date End Date Status Carvedilol 6.25 MG 1 tablet Orally twic e a day Active metFORMIN HCl ER (MOD) 500 MG 1 tablet with evening meal Orally Twice a day Active Xarelto 20 MG 1 tablet Orally Once a day Active Tresiba FlexTouch 100 UNIT/ML 14 Units Subcutaneous In the morning Active Vitamin D3 1000 UNIT 1 capsule Orally On ce a day Active amLODIPine Besylate 5 MG 1 tablet Orally Once a day Active Tamsulosin HCl 0.4 MG TAKE 2 CAPSULES AT BEDTIME Oral Active Stool Softener Activ e Finasteride 5 MG 1 tablet Orally Once a day Active Social History Tobacco Use: [...] Problem Status W/U Status Risk Notes Problem 9599433 Former smoker (Z87.891) Active confirmed He has a plan to prevent relapse in times of stress and illness. He is highly motivated not to smoke. Problem 08927467 DM (diabetes mellitus) (E11.9) Active confirmed His fastin g blood glucose level was 73. His A1c is 6.7. He is free of symptoms. I will refer him back to his primary care physician for management of his diabetes. Problem 437638138 Overweight (E66.3) Active confirmed His body mass index is 26.6 and he has lost several pounds. I recommend a gradual weight loss until about a mass index is in the normal range. We discussed the elements of a weight loss diabetic diet. Problem 154956081 Thrombocytopenia (D69.6) Active confirmed His platelet count is 189. He is intermittently low, but usually normal. No treatment is necessary at this time. The value will be observed. Problem 44225630 Hypercalcemia (E83.52) Active confirmed His calcium level is now normal at 9.5. Problem 672114495 Paroxysmal atria l fibrillation (I48.0) Active confirmed He was in sinus rhythm today with no symptoms. His medications were continued without change. Problem 70113571 Ureterolithiasis (N20.1) Active confirmed He has had no episodes of renal colic. Since his last visit. He has had no hematuria or dysuria. Problem 93566060 HTN (hypertension) (I10) Active confirmed His blood pressure was slightlyy elevated at 145/85 today. I recommended sodium restriction, weight loss, but made no change in his medications.He was referred back to primary care Problem 830544004 Anticoagulated (Z79.01) Active confirmed He remains on Xarelto without bleeding. He has been compliant with his medication. Problem 22867915 COPD (chronic obstructive pulmonary disease) (J44.9) Active confirmed He is mildl y symptomatic, but able to conduct all of the activities of daily life without supplemental oxygen. Problem 113187046 Cholelithiasis (K80.20) Active confirmed There is no right upper quadrant tenderness and he feels well today. His diet is unrestricted. His appetite is good Problem 373859168 Non-small cell carcinoma of lung (C34.90) Active confirmed He remains free of recurrent disease with a normal mental status. Problem 363773390 Rotator cuff tea r (M75.100) Active confirmed The pain is stable but he does not wish to have any treatment at this time. Problem 623830153 Benign prostatic hyperplasia with lower urinary tract symptoms (N40.1) Active confirmed He is stable with nocturia once or twice a night. No change in his regimen is necessary. Problem 71714185 Brain metastasis (C79.31) Active confirmed He reports no new neurological symptoms. He has had no headaches or weakness or seizures or episodes of syncope. Surveillance will continue. 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90 ; Rotator cuff tear M75.100 ; Paroxysmal atrial fibrillation I48.0 ; 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 12/18/2024 Former smoker (ICD-1 0 - Z87.891) He [...] care physician for management of his diabetes. 12/18/2024 Overweight (ICD-10 - E66.3) His body mass index is 26.6 and he has lost several pounds. I recommend a gradual weight loss until about a mass index is in the normal range. We discussed the elements of a weight loss diabetic diet. 03/25/2024 HTN (hypertension) (ICD-10 - I10) His [...] was referred back to primary care 12/18/2024 HTN (hypertension) (ICD-10 - I10) His [...] disease with a normal mental status. 12/18/2024 Rotator cuff tear (ICD-10 - M75.100) [...] NATRIURETIC PEPTIDE (BNP) 07/13/19 22 PSA, TOTAL 06/21/2021 PSA, TOTAL 12/04/2024 PSA, TOTAL 02/22/2021 MICROALBUMIN, RANDOM 02/22/2021 CBC w DIFF 05/15/2018 CBC w DIFF 06/21/2021 CBC w DIFF 02/19/2019 CBC w DIFF 02/22/2021 CBC w DIFF 07/27/2020 CBC w DIFF 12/04/2024 CBC w DIFF 09/18/2018 CBC w DIFF 07/17/2018 CBC w DIFF 05/08/2019 SED RATE (ESR) 05/08/2019 XR CHEST 2 VIEW PA & LAT 05/15/2018 XR CHEST 2 VIEW PA & LAT 07/17/2018 XR LUMBAR SPINE 4+ VIEWS 07/17/2018 VITAMIN D 25-OH TOTAL 02/19/2019 VITAMIN D 25-OH TOTAL 09/18/2018 Glucose Fasting 07/12/2021 Lipid Panel 02/22/2021 Next Appt Details Provider Name:Gregory Cleveland , 06/17/2025 02:00:00 PM, [address] [place] [address] [address], [place], [address], Insurance Providers Payer Name Payer Address Payer Phone Subscriber Number Group Number Insured Name Patient Relationship to Insured Coverage Start Date Coverage End Date MEDICARE NGS [address] [place] [address] [id number] Daryl Jah felix Self - patient is the insured [facility] [address] [place], [place] [id number] Daryl felixJah Self - patient is the insured Medical [...]
--- OUTSIDE RECORDS SUMMARY | 2025-01-09 15:27 | XMS_ITS | Patient Health Record ---
Author Organization [facility] Address [address] [place] [address] Care Team Providers Care Breaker Off Name Role Phone Connie (RETIRED) Javier FARIA Primary Care Provide Eusebio Birch Jr Unavailable [phone] Reason For Referral No Information Medications Medication [...] Status Risk Notes Problem Colon cancer screening (126054719) Colon cancer screening (V76.51) Active confirmed Plan Of Treatment No Information Insurance Providers Payer Name Payer Address Payer Phone Subscriber Number Group Number Insured Name Patient Relationship to Insured Coverage Start Date Coverage End Date MEDICARE OF [place] [address] [place] [address] [id number] RAFAELA RATLIFF Self - patient is the insured [facility] [address] [place], [place] [id number] [phone] [id number] RAFAELA RATLIFF Self - patient is the insured Medical (General) History Medical History History ICD Code diabetes mellitus hypertension Surgical History Surgery Date(Month/Year) oral surgery 1991 rotator cuff tear repair 2010
== END 2025-01-09 14:37 | disposition home or self-care (01) ==
LOC: HO.HUSH 13:48
PROVIDERS: PCP Internal Medicine; Visit Provider Urology
DX: R97.20 Elevated prostate specific antigen [PSA] (principal); N40.0 Benign prostatic hyperplasia without lower urinary tract symptoms
CPT/HCPCS: 99213; G2211

== ENCOUNTER → 2025-01-09 13:47 | Outpatient (BNVA) | payer MEDICARE, SELFPAY | PROVIDERS: PCP Internal Medicine; Visit Provider Urology | DX: R97.20 Elevated prostate specific antigen [PSA] (principal); N40.0 Benign prostatic hyperplasia without lower urinary tract symptoms | CPT/HCPCS: 99212 ==

== ENCOUNTER 2025-03-27 13:33 | Outpatient (AMB) | payer MEDICARE, SELFPAY ==
--- OUTSIDE RECORDS SUMMARY | 2024-03-25 09:30 | XMS_ITS ---
Author Organization Gregory Cleveland III, MD Address [address] [place] [address] Care Team Providers Care Jewel Cupping Machine Operator Name Role Phone Trena Bentley (Jania) Primary Care Provider Un available Dr. Gregory Cleveland III Unavailable [phone] Allergies Allergen (clinical drug ingredient) Drug/Non Drug Allergy documented on EMR Reaction Allergy Type Onset Date Status No Known Drug Allergy Unknown Drug Allergy Active REASON FOR VISIT History of non-small cell lung cancer, Diabetes, Hypertension, COPD, Atrial fibrillation, Benign prostatic hypertrophy, History of pulmonary embolism, Hypercalcemia, History of thrombocytopenia Medications Medication SIG (Take, Route, Frequency, Duration) Notes Start Date End Date Status Finasteride 5 MG Oral Act selena amLODIPine Besylate 5 MG 1 tablet Orally Once a day Active Tamsulosin HCl 0.4 MG 2 capsule Orally at night Active Stool Softener Activ e Tresiba FlexTouch 100 UNIT/ML 30 Units Subcutaneous In the morning Active Carvedilol 3.125 MG 1 tablet Orally twic e a day Active Xarelto 20 MG 1 tablet Orally Once a day Active Vitamin D3 1000 UNIT 1 capsule Orally On ce a day Active metFORMIN HCl ER (MOD) 500 MG 1 tablet with evening meal Orally Twice a day Active Social History Tobacco Use: Social History Observation Description Date Details (start date - stop date) Former Smoker NA - NA Tobacco Use/Smoking Question Answer Notes Patient is a former smoker How long has it been since you last smoked? > 10 years Additional Findings: Tobacco Non-User Ex-cigaret te smoker Problems Problem Type SNOMED Code ICD Code Onset Dates Problem Status W/U Status Risk Notes Problem [id number] Anticoagulated (Z79.01) Active confirmed He remains on Xarelto without bleeding. He has been compliant with his medication. Vital Signs Temperature 97.2 degrees Fahrenheit 03/25/20 24 Blood pressure systolic 131 mm Hg 03/25/20 24 Blood pressure diastolic 84 mm Hg 024 Heart Rate 66 /min 03/25/2024 Height 71 in 03/25/2024 Weight 183 lbs 03/25/2024 BMI 25.52 kg/m2 03/25/2024 Encounters Encounter Location Date Provider Diagnosis Gregory Cleveland III, MD [address] [place] [address] [place] [address] 03/25/2024 Gregory Cleveland Former smoker Z87.89 1 ; Non-small cell carcinoma of lung C34.90 ; DM (diabetes mellitus) E11.9 ; HTN (hypertension) I10 ; Rotator cuff tear M75.100 ; Overweight E66.3 ; Ureterolithiasis N20.1 ; COPD (chronic obstructive pulmonary disease) J44.9 ; Paroxysmal atrial fibrillation I48.0 ; Other chronic pulmonary embolism without acute cor pulmonale I27.82 and Anticoagulated Z79.01 Assessments Encounter Date Diagnosis (ICD Code) Assessment Notes T reatment Notes Treatment Clinical Notes 03/25/2024 Former smoker (ICD-1 0 - Z87.891) He has a plan to prevent relapse in times of stress and illness. He is highly motivated not to smoke. 03/25/2024 Non-small cell carcinoma of lung (ICD-10 - C34.90) He remains free of recurrent disease with a normal mental status. 03/25/2024 DM (diabetes mellitu s) (ICD-10 - E11.9) His fasting blood glucose level was 73. His A1c is 6.7. He is free of symptoms. I will refer him back to his primary care physician for management of his diabetes. 03/25/2024 HTN (hypertension) (ICD-10 - I10) His blood pressure is stable at 106/56 and into normal range today. I recommended sodium restriction, weight loss, but made no change in his medications. 03/25/2024 Rotator cuff tear (ICD-10 - M75.100) The pain is stable but he does not wish to have any treatment at this time. 03/25/2024 Overweight (ICD-10 - E66.3) His body mass index is 26.6 and he has lost several pounds. I recommend a gradual weight loss until about a mass index is in the normal range. We discussed the elements of a weight loss diabetic diet. 03/25/2024 Ureterolithiasis (ICD-10 - N20.1) He has had no episodes of renal colic. Since his last visit. He has had no hematuria or dysuria. 03/25/2024 COPD (chronic obstructive pulmonary disease) (ICD-10 - J44.9) He is mildly symptomatic, but able to conduct all of the activities of daily life without supplemental oxygen. 03/25/2024 Paroxysmal atrial fibrillation (ICD-10 - I48.0) He was in sinus rhythm today with no symptoms. His medications were continued without change. 03/25/2024 Other chronic pulmonary embolism without acute cor pulmonale (ICD-10 - I27.82) He has had no bleeding on his anticoagulation. He has had no recurrent DVT or pulmonary emboli. His breathing is unremarkable today. He suffered a deep venous thrombosis of his right lower extremity with bilateral pulmonary emboli in March of 2017. He has been anticoagulated since. 03/25/2024 Anticoagulated (ICD- 10 - Z79.01) He remains on Xarelto without bleeding. He has been compliant with his medication. Plan Of Treatment Medication Medication Name Sig Start Date Stop Date Notes Finasteride 5 MG Oral amLODIPine Besylate 5 MG 1 tablet Orally Once a day Tamsulosin HCl 0.4 MG 2 capsule Orally at night Stool Softener Tresiba FlexTouch 100 UNIT/ML 30 Units S ubcutaneous In the morning Carvedilol 3.125 MG 1 tablet Orally twice a day Xarelto 20 MG 1 tablet Orally Once a day Vitamin D3 1000 UNIT 1 capsule Orally Once a day metFORMIN HCl ER (MOD) 500 MG 1 tablet w ith evening meal Orally Twice a day Next Appt Details Follow Up: In six months, Re ason: Regular check-up Provider Name:Gregory Cleveland , 06/17/2025 02:00:00 PM, [address] [place] [address] [facility] [address], [place], [address], Progress Notes * Jah CURTIS EDOB:09/1935 (88 yo M)Acc No.[id number]:03/25/2024 Progress Notes Patient: Jah ROSS Provider: Elaine Cleveland MD :1935 A ge:88 Y S ex:Male Date:03/25/2024 Address:[facility] [place], [facility] Pcp:Javier Rosales MD Subjective: * Chief Complaints: * H istory of non-small cell lung cancerDiabetesHypertensionCOPDAtrial fibrillationBenign prostatic hypertrophyHistory of pulmonary embolismHypercalcemiaHistory of thrombocytopenia * HPI: C OVID-19 Screening: Questions H ave you had any new onset fever, chills, cough, congestion, sore throat, shortness of breath, muscle aches? N o * : The 88-year-old male patient has been experiencing aches and pains, but no shortness of breath. He has a history of headaches, but they are currently not a problem. He has an extra heartbeat, which has been present since his youth, but it has not affected his longevity. He has a history of diabetes, but he has managed to control it by reducing his insulin shots from 21 parts to 18 parts. He also follows a diet. He has not had any kidney stones for years. He has no signs of cancer. He has a history of degenerative disc disease, as shown in his MRI and X-ray results. He exercises regularly at the gym, starting with a half-mile walk at 3 miles per hour, followed by 20 minutes of body work, another half-mile on the treadmill, and then rest. He has no history of smoking. * ROS: G eneral/Constitutional: pain b oth shoulders, otherwise only normal aches and pains. C hills d enies. F atigue a dmits. F ever d enies. E NT: Decreased hearing m ild. R espiratory: Cough d enies. C ardiovascular: Chest pain with exertion d enies. D yspnea on exertion?denies. D enies S hortness of breath, w ith exertion. G astrointestinal: Constipation o ccasional. D ecreased appetite d enies. D iarrhea d enies. H eartburn d enies. N ausea d enies. R ectal bleeding d enies. V omiting d enies. H ematology: bruising d enies. p etechiae d enies. S wollen glands n one have been noted. G enitourinary: Frequent urination o nce a night. M usculoskeletal: Muscle aches d [...] lobectomy stage IIA adenocarcinoma of the lung 2014No history * Hospitalization/Major Diagno stic Procedure: N o history * Family History: F ather: 72 yrs, emphysema. M other: 41 yrs, CAD, myocardial infarction.?Siblings: . 2 brother(s) . 2 son(s) , 1 daughter(s) [...] x-cigarette smoker Anselmo hernandez was born in [facility]. He is but and his lives in [place]. He has 2 sons and 1 daughter and no grandchildren. 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 * Medications: T akingXarelto 20 MG Tablet 1 tablet Orally Once a day Carvedilol 3.125 MG Tablet 1 tablet Orally twice a day metFORMIN HCl ER (MOD) 500 MG Tablet Extended Release 24 Hour 1 tablet with evening meal Orally Twice a day Vitamin D3 1000 UNIT Capsule 1 capsule Orally Once a day Tamsulosin HCl 0.4 MG Capsule 2 capsule Orally at night amLODIPine Besylate 5 MG Tablet 1 tablet Orally Once a day Tresiba FlexTouch 100 UNIT/ML Solution Pen-injector 18 Units Subcutaneous In the morning Stool Softener Finasteride 5 MG Tablet Oral Medication List reviewed and reconciled with the patientTaking Xarelto 20 MG Tablet 1 tablet Orally Once a day Taking Carvedilol 3.125 MG Tablet 1 tablet Orally twice a day Taking metFORMIN HCl ER (MOD) 500 MG Tablet Extended Release 24 Hour 1 tablet with evening meal Orally Twice a day Taking Vitamin D3 1000 UNIT Capsule 1 capsule Orally Once a day Taking Tamsulosin HCl 0.4 MG Capsule 2 capsule Orally at night Taking amLODIPine Besylate 5 MG Tablet 1 tablet Orally Once a day Taking Tresiba FlexTouch 100 UNIT/ML Solution Pen-injector 18 Units Subcutaneous In the morning Taking Stool Softener Taking Finasteride 5 MG Tablet Oral Medication List reviewed and reconciled with the patient * Allergies: N o Known Drug Allergyno[Allergies Verified] Objective: * Vitals: H t: 71, Wt:183, BMI:25.52, BP:131/84, HR:66, Temp:97.2, Wt-k.01. * Examination: G eneral Examination: GENERAL APPEARANCE: p leasant, well nourished, well developed, in no acute distress, calm and relaxed, overweight, elderly man. HEAD: a traumatic, normocephalic. EYES: e david, perrla, anicteric, conjugate. EARS: n ormal. NOSE: s eptum intact. ORAL CAVITY: n ormal, unremarkable. NECK/THYROID: n o jugular venous distention, no carotid bruit, thyroid normal. LYMPH NODES: n o enlarged lymph nodes,spleen normal. SKIN: n o suspicious lesions, anicteric. HEART: n o clicks, gallops, murmurs, or rubs, irregular rhythm, S1, S2 normal, no s3, or vascular bruits. LUNGS: H ealed thoracotomy scar Right thorax, diminished breath sounds throughout. BREASTS: no masses palpable bilaterally. ABDOMEN: b [...] a lert, oriented. Assessment: * Assessment: 1. N on-small cell carcinoma of lung - C34.90 (Primary) N otes :He remains free of recurrent disease with a normal mental status. 2 . F ormer smoker - Z87.891 N otes :He has a plan to prevent relapse in times of stress and illness. He is highly motivated not to smoke. 3 . D M (diabetes mellitus) - E11.9 N otes :His fasting blood glucose level was 73. His A1c is 6.7. He is free of symptoms. I will refer him back to his primary care physician for management of his diabetes. 4 . H TN (hypertension) - I10 N otes :His blood pressure is stable at 106/56 and into normal range today. I recommended sodium restriction, weight loss, but made no change in his medications. 5 . R otator cuff tear - M75.100 N otes :The pain is stable but he does not wish to have any treatment at this time. 6 . O verweight - E66.3 N otes :His body mass index is 26.6 and he has lost several pounds. I recommend a gradual weight loss until about a mass index is in the normal range. We discussed the elements of a weight loss diabetic diet. 7 . U reterolithiasis - N20.1 N otes :He has had no episodes of renal colic. Since his last visit. He has had no hematuria or dysuria. 8 . C OPD (chronic obstructive pulmonary disease) - J44.9 N otes :He is mildly symptomatic, but able to conduct all of the activities of daily life without supplemental oxygen. 9 . P aroxysmal atrial fibrillation - I48.0 N otes :He was in sinus rhythm today with no symptoms. His medications were continued without change. 1 0. O ther chronic pulmonary embolism without acute cor pulmonale - I27.82? Notes :He has had no bleeding on his anticoagulation. He has had no recurrent DVT or pulmonary emboli. His breathing is unremarkable today. He suffered a deep venous thrombosis of his right lower extremity with bilateral pulmonary emboli in March of 2017. He has been anticoagulated since. 1 1. A nticoagulated - Z79.01 N otes :He remains on Xarelto without bleeding. He has been compliant with his medication. Plan: * Treatment: * Procedure Codes: * Preventive Medicine: Counseling: C are goal follow-up plan: Counseling for abnormal BMI given Y es Above Normal BMI Follow-up D ietary management education, guidance, and counseling S moking/Tobacco Use Patient counseled on the dangers of tobacco use and urged to quit. 1 05/26/2023 DM Care Plan: P atient Lifestyle Goals [...] quality of life. T reatment Goals E xercise to help whole body, including lungs, Eat a nutritious diet and increase water consumption to 6-8 glasses a day. B arriers n o barriers. S elf-Managment Goals E at a healthy diet. * Follow Up: I n six months (Reason: Regular check-up) * Images: * Sign off status: Completed true * Provider: Elaine Cleveland MD Date: 05/26/2023 Generated for Rosana zavala/Lucy/Joeitting on: 05/28/2024 05:39 PM EST History and Physical Notes * HPI (History of Present Illness) Category Sub-Category Detail Notes COVID-19 Screening Questions Have you had any new onset fever, chills, cough, congestion, sore throat, shortness of breath, muscle aches?: No Examination Category Sub-Category Detail Notes General Examination GENERAL APPEARANCE: pleasant , well nourished, well developed, in no acute distress, calm and relaxed, overweight, elderly man HEAD: atraumatic, normocep halic EYES: eomi, perrla, anicte carla, conjugate EARS: normal NOSE: septum intact NECK/THYROID: no jugular venous di stention, no carotid bruit, thyroid normal HEART: no clicks, gallops, murmurs, or rubs, irregular rhythm, S1, S2 normal, no s3, or vascular bruits LUNGS: Healed thoracotomy s car Right thorax, diminished breath sounds throughout ABDOMEN: bowel sounds normal, no ascites, no [...]
--- OUTSIDE RECORDS SUMMARY | 2024-09-23 10:00 | XMS_ITS ---
Author Organization Gregory Cleveland III, MD Address [address] [place] [address] Care Team Providers Care Environmental Engineering Manager Name Role Phone Anya Bentley (Jania) Primary Care Provider Un available Dr. 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., Diabetes, Hypertension, Ureterolithiasis, COPD, Benign prostatic hypertrophy Medications Medication SIG (Take, Route, Frequency, Duration) Notes Start Date End Date Status Finasteride 5 MG Oral Act selena amLODIPine Besylate 5 MG 1 tablet Orally Once a day Active Tresiba FlexTouch 100 UNIT/ML 30 Units Subcutaneous In the morning Active Stool Softener Activ e Tamsulosin HCl 0.4 MG 2 capsule Orally at night Active Xarelto 20 MG 1 tablet Orally Once a day Active Carvedilol 3.125 MG 1 tablet Orally twic e a day Active metFORMIN HCl ER (MOD) 500 MG 1 tablet with evening meal Orally Twice a day Active Vitamin D3 1000 UNIT [...] Non-User Ex-cigaret te smoker Vital Signs Temperature 97.2 degrees Fahrenheit 09/24/19 25 Blood pressure systolic 148 mm Hg 09/24/19 25 Blood pressure diastolic 75 mm Hg 025 Heart Rate 65 /min 09/23/2024 Height 71 in 09/23/2024 Weight 183 lbs 09/23/2024 BMI 25.52 kg/m2 09/23/2024 Encounters Encounter Location Date Provider Diagnosis Gregory Cleveland III, MD [address] [place] [address] [address] [place], [place] [address] 09/23/2024 Gregory Cleveland Former smoker Z87.89 1 ; Non-small cell carcinoma of lung C34.90 ; DM (diabetes mellitus) E11.9 ; HTN (hypertension) I10 ; Rotator cuff tear M75.100 ; Ureterolithiasis N20.1 and Thrombocytopenia D69.6 Assessments Encounter Date Diagnosis (ICD Code) Assessment Notes T reatment Notes Treatment Clinical Notes 09/23/2024 Former smoker (ICD-1 0 - Z87.891) He has a plan to prevent relapse in times of stress and illness. He is highly motivated not to smoke. 09/23/2024 Non-small cell carcinoma of lung (ICD-10 - C34.90) He remains free of recurrent disease with a normal mental status. 09/23/2024 DM (diabetes mellitu s) (ICD-10 - E11.9) His fasting blood glucose level was 73. His A1c is 6.7. He is free of symptoms. I will refer him back to his primary care physician for management of his diabetes. 09/23/2024 HTN (hypertension) (ICD-10 - I10) His blood pressure is stable at 106/56 and into normal range today. I recommended sodium restriction, weight loss, but made no change in his medications. 09/23/2024 Rotator cuff tear (ICD-10 - M75.100) The pain is stable but he does not wish to have any treatment at this time. 09/23/2024 Ureterolithiasis (ICD-10 - N20.1) He has had no episodes of renal colic. Since his last visit. He has had no hematuria or dysuria. 09/23/2024 Thrombocytopenia (ICD-10 - D69.6) His platelet count is 189. He is intermittently low, but usually normal. No treatment is necessary at this time. The value will be observed. Plan Of Treatment Medication Medication Name Sig Start Date Stop Date Notes Finasteride 5 MG Oral amLODIPine Besylate 5 MG 1 tablet Orally Once a day Tresiba FlexTouch 100 UNIT/ML 30 Units S ubcutaneous In the morning Stool Softener Tamsulosin HCl 0.4 MG 2 capsule Orally at night Xarelto 20 MG 1 tablet Orally Once a day Carvedilol 3.125 MG 1 tablet Orally twice a day metFORMIN HCl ER (MOD) 500 MG 1 tablet w ith evening meal Orally Twice a day Vitamin D3 1000 UNIT 1 capsule Orally Once a day Next Appt Details Follow Up: 6 Months, Reason: OV Provider Name:Gregory Cleveland , 06/17/2025 02:00:00 PM, [address] [place] [address], [place] [address], [place], [address], Progress Notes * Jah CURTIS EDOB:09/1935 (88 yo M)Acc No.[id number]:09/23/2024 Progress Notes Patient: Jah ROSS Provider: Elaine Cleveland MD :1935 A ge:88 Y S ex:Male Date:09/23/2024 Address:[facility] [place], [id number] Pcp:Anya Bentley Subjective: * Chief Complaints: * N on-small cell carcinoma of lung with brain metastases.DiabetesHypertensionUreterolithiasisCOPDBenign prostatic hypertrophy * HPI: C OVID-19 Screening: fwent to [place],, jan x 1, anya ramirez,, no sob, shoulders good. He returns to the office for ongoing follow-up of his lung cancer. He is in remission after surgery and adjuvant treatment. He is driving automobile without difficulty. He experiences nocturia once a night. He recently took a trip to [place] with his family. He denies any shortness of breath. The pain in his shoulders is resolved. His new primary care physician is Anya Bentley M.D. Questions H ave you had any new onset fever, chills, cough, congestion, sore throat, shortness of breath, muscle aches? N o * ROS: G eneral/Constitutional: pain C hilders, otherwise only normal aches and pains. C hills d enies. F atigue a dmits. F ever d enies. E NT: Decreased hearing m ild. R espiratory: Cough d enies. C ardiovascular: Chest pain with exertion d enies. D yspnea on exertion?denies. S hortness of breath w ith exertion. G astrointestinal: Constipation d enies. D ecreased appetite d enies.?Diarrhea d enies. H eartburn d enies. N ausea d enies. R ectal bleeding?denies. V omiting d enies. H ematology: bruising d enies. p etechiae d enies. S wollen glands n one have been noted. G enitourinary: Frequent urination d enies. M usculoskeletal: Muscle aches d enies. P [...] He is but and his lives in [place]. He has 2 sons and 1 daughter and no grandchildren. 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 * Medications: T akingXarelto 20 MG Tablet 1 tablet Orally Once a day Carvedilol 6.25 MG Tablet 1 tablet Orally twice a [...] day Tresiba FlexTouch 100 UNIT/ML Solution Pen-injector 30 Units Subcutaneous In the morning Stool Softener Finasteride 5 MG Tablet Oral Medication List reviewed and reconciled with the patientTaking Xarelto 20 MG Tablet 1 tablet Orally Once a day Taking Carvedilol 6.25 MG Tablet 1 tablet Orally twice a [...] Taking Tresiba FlexTouch 100 UNIT/ML Solution Pen-injector 30 Units Subcutaneous In the morning Taking Stool Softener Taking Finasteride 5 MG Tablet Oral Medication List reviewed and reconciled with the patient * Allergies: N o Known Drug Allergyno[Allergies Verified] Objective: * Vitals: H t: 71, Wt:183, BMI:25.52, BP:148/75, HR:65, Temp:97.2, Wt-k.01. * Examination: G eneral Examination: GENERAL APPEARANCE: p leasant, well nourished, well developed, in no acute distress, calm and relaxed, overweight, man. HEAD: a traumatic, normocephalic, Surgical scars healed.? EYES: e david, perrla, anicteric, conjugate. EARS: n ormal. NOSE: s eptum intact. ORAL CAVITY: n ormal, unremarkable. NECK/THYROID: n o jugular venous distention, no carotid bruit, thyroid normal. LYMPH NODES: n o enlarged lymph nodes,spleen normal. SKIN: n o suspicious lesions, anicteric. HEART: n o clicks, gallops, murmurs, or rubs, regular rhythm, S1, S2 normal, no s3, or vascular bruits. LUNGS: , diminished breath sounds throughout, good air movement. BREASTS: no masses palpable [...] any treatment at this time. 6 . U reterolithiasis - N20.1 N otes :He has had no episodes of renal colic. Since his last visit. He has had no hematuria or dysuria. 7 . T hrombocytopenia - D69.6 N otes :His platelet count is 189. He is intermittently low, but usually normal. No treatment is necessary at this time. The value will be observed. Plan: * Treatment: * Procedure Codes: * Preventive Medicine: COPD Care Plan: P atient Lifestyle Goals R elieve symptoms and improve quality of life, Reduce number of ED and hospitalizations, Be able to be more active with friends and family. T reatment Goals E xercise to help whole body, including lungs, Eat a nutritious diet and increase water consumption to 6-8 glasses a day, Eat 4-5 small meals throughout the day. B arriers n o barriers. S elf-Managment Goals G et an air purifier for the rooms you are in the most, Eat a healthy diet. * Follow Up: 6 Months (Reason: OV) * Images: * Sign off status: Completed true * Provider: Elaine Cleveland MD Date: 0 09/23/2024 Generated for Albini sally/Lucy/eTransmitting on: 1 05/28/2024 05:39 PM EST History and Physical Notes * HPI (History of Present Illness) Category Sub-Category Detail Notes COVID-19 Screening Questions Have you had any new onset fever, chills, cough, congestion, sore throat, shortness of breath, muscle aches?: No Examination Category Sub-Category Detail Notes General Examination GENERAL APPEARANCE: pleasant , well nourished, well developed, in no acute distress, calm and relaxed, overweight, man HEAD: atraumatic, normocep halic, Surgical scars healed EYES: eomi, perrla, anicte carla, conjugate EARS: normal NOSE: septum intact NECK/THYROID: no jugular venous di stention, no carotid bruit, thyroid normal HEART: no clicks, gallops, murmurs, or rubs, regular rhythm, S1, S2 normal, no s3, or vascular bruits LUNGS: , diminished breath sounds throughout, good air movement ABDOMEN: bowel sounds normal, [...]
--- OUTSIDE RECORDS SUMMARY | 2024-12-04 05:45 | XMS_ITS ---
Author Organization Gregory Cleveland III, MD Address [address] [place] [address] Care Team Providers Care Music Composer Name Role Phone Trena Bentley ([place]) Primary Care Provider Un available Dr. Gregory Cleveland III Unavailable Allergies Allergen (clinical drug ingredient) Drug/Non Drug Allergy documented on EMR Reaction Allergy Type Onset Date Status No Known Drug Allergy Unknown Drug Allergy Active Results Component Value Reference Range Notes Lipid Panel Reviewed date:12/10/2024 04:49:55 AM Interpretation: Performing Lab:[facility], [address] [place] [address] Notes/Report: Triglycerides 112 <150 mg/dL Desirable Triglyceride: less than 150 mg/dL Borderline High Triglyceride 150-199 mg/dL High Triglyceride: 200-499 mg/dL Very High Triglyceride: greater than or equal to 5OO mg/dL Cholesterol 129 <200 mg/dL Desirable Cholesterol: less than 200 mg/dL Borderline High Cholesterol: 200-239 mg/dL High Cholesterol: greater than 239 mg/dL LDL Cholesterol Calculated 79 <100 mg/dL Desirable LDL: less than 100 mg/dL Near Optimal/Above Optimal LDL: 110-129 mg/dL Borderline High LDL: 130-159 mg/dL High LDL: 160-189 mg/dL Very High LDL: greater than or equal to 190 mg/dL HDL Cholesterol 28 >40 mg/dL Desirable HDL: greater than 40 mg/dL Note: This HDL assay may give artificially low results in patients with liver disease. Hemoglobin A1c Reviewed date:12/10/2024 04:49:55 AM Interpretation: Performing Lab:[facility], [address], [place] [address] Notes/Report: Hemoglobin A1c % 6.8 <6.0 % Hemoglobin A1C Reference Range Adults: 4.8 - 6.0 % Non diabetic: < 6.0 % Goal: < 7.0 % Additional Action Suggested: > 8.0 % Note: Hemoglobin A1c results are invalid for patients with abnormal amounts of HbF. Blood transfusions may impact the HbA1c concentration in the patient sample. Estimated Average Glucose 148 eAG = Estimated average glucose which is %A1C expressed as average glucose, using the formula of the C4M-Litvudc Average Glucose study (ADAG), Diabetes Care, Vol.31,#8, 2007 REASON FOR VISIT Diabetes, Non small cell carcinoma of lung, History of brain metastasis, Hypertension, COPD, Benignprostatic hypertrophy., History of ureterolithiasis, Paroxysmal atrial fibrillation, Anticoagulated Medications Medication SIG (Take, Route, Frequency, Duration) Notes Start Date End Date Status Tamsulosin HCl 0.4 MG TAKE 2 CAPSULES AT BEDTIME Oral Active Finasteride 5 MG 1 tablet Orally Once a day Active Stool Softener Activ e Tresiba FlexTouch 100 UNIT/ML 14 Units Subcutaneous In the morning Active amLODIPine Besylate 5 MG 1 tablet Orally Once a day Active Xarelto 20 MG 1 tablet Orally Once a day Active Vitamin D3 1000 UNIT 1 capsule Orally On ce a day Active metFORMIN HCl ER (MOD) 500 MG 1 tablet with evening meal Orally Twice a day Active Carvedilol 6.25 MG 1 tablet Orally twic e a day Active Social History Tobacco Use: Social History Observation Description Date Details (start date - stop date) Former Smoker NA - NA Tobacco Use/Smoking Question Answer Notes Patient is a former smoker How long has it been since you last smoked? > 10 years Additional Findings: Tobacco Non-User Ex-cigaret te smoker Vital Signs Temperature 98.4 degrees Fahrenheit 12/05/19 25 Blood pressure systolic 145 mm Hg 12/05/19 25 Blood pressure diastolic 85 mm Hg 025 Heart Rate 61 /min 12/04/2024 Height 71 in 12/04/2024 Weight 183 lbs 12/04/2024 BMI 25.52 kg/m2 12/04/2024 Encounters Encounter Location Date Provider Diagnosis Gregory Cleveland III, MD [address] [place] [address] [address] [place], [place] [address] 12/04/2024 Gregory Krausrne Former smoker Z87.89 1 ; Overweight E66.3 ; DM (diabetes mellitus) E11.9 ; HTN (hypertension) I10 ; Non-small cell carcinoma of lung C34.90 ; Rotator cuff tear M75.100 ; Paroxysmal atrial fibrillation I48.0 ; 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 He is highly motivated not to smoke. 12/04/2024 Overweight (ICD-10 - E66.3) His body mass index is 26.6 and he has lost several pounds. I recommend a gradual weight loss until about a mass index is in the normal range. We discussed the elements of a weight loss diabetic diet. 12/04/2024 DM (diabetes mellitus) (ICD-10 - E11.9) His fasting blood glucose level was 73. His A1c is 6.7. He is free of symptoms. I will refer him back to his primary care physician for management of his diabetes. 12/04/2024 HTN (hypertension) (ICD-10 - I10) His blood pressure was slightlyy elevated at 145/85 today. I recommended sodium restriction, weight loss, but made no change in his medications.He was referred back to primary care 12/04/2024 Non-small cell carcinoma of lung (ICD-10 - C34.90) He remains free of recurrent disease with a normal mental status. 12/04/2024 Rotator cuff tear (ICD-10 - M75.100) The pain is stable but he does not wish to have any treatment at this time. 12/04/2024 Paroxysmal atrial fibrillation (ICD-10 - I48.0) He was in sinus rhythm today with no symptoms. His medications were continued without change. 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 He has had no recurrent DVT or pulmonary emboli. His breathing is unremarkable today. He suffered a deep venous thrombosis of his right lower extremity with bilateral pulmonary emboli in March of 2017. He has been anticoagulated since. 12/04/2024 Benign prostatic hyperplasia with lower urinary tract symptoms (ICD-10 - N40.1) He is stable with nocturia once or twice a night. No change in his regimen is necessary. Plan Of Treatment Medication Medication Name Sig Start Date Stop Date Notes Tamsulosin HCl 0.4 MG TAKE 2 CAPSULES AT BEDTIME Oral Finasteride 5 MG 1 tablet Orally Once a day Stool Softener Tresiba FlexTouch 100 UNIT/ML 14 Units S ubcutaneous In the morning amLODIPine Besylate 5 MG 1 tablet Orally Once a day Xarelto 20 MG 1 tablet Orally Once a day Vitamin D3 1000 UNIT 1 capsule Orally Once a day metFORMIN HCl ER (MOD) 500 MG 1 tablet w ith evening meal Orally Twice a day Carvedilol 6.25 MG 1 tablet Orally twice a day Pending Test Test Name Order Date PROFILE, FASTING (COMPREHENSIVE METABOLI C) 12/04/2024 PSA, TOTAL 12/04/2024 CBC w DIFF 12/04/2024 Next Appt Details Follow Up: 2 Weeks,6 Months, Reason: Telehealth, OV Provider Name:Gregory Cleveland , 06/17/2025 02:00:00 PM, [address] [place] [address] DR, [place] [address], [place], [address], Progress Notes * ISAIAHJah KESSLER EDOB:09/1935 (88 yo M)Acc No.[id number]:12/04/2024 Progress Notes Patient: Jah ROSS Provider: Elaine Cleveland MD :1935 A ge:88 Y S ex:Male Date:12/04/2024 Address[facility] [id number] Pcp:Trena Bentley ([place]) Subjective: * Chief Complaints: * D iabetesNon small cell carcinoma of lungHistory of brain metastasisHypertensionCOPDBenign prostatic hypertrophy.History of ureterolithiasisParoxysmal atrial fibrillationAnticoagulated * HPI: C OVID-19 Screening: His examination today showed no sign of recurrent cancer. His weight is stable and his vital signs are normal. He has had some recent sensations of pressure to the left of the Center of his occipital scalp. The examination there was normal. He has been concerned about this. He goes to a local gym 3 or 4 times a week and runs for 1 mile a 3 miles an hour. The treadmill has a heart rate monitor which recently red 144 for 5 min. even though he began to walk. He has no symptoms at this time. I t seems that this was more a malfunction of the machine then and his actual heart rate. He is going to check his heart rate. Carefully and call me at once if it exceeds 130. If necessary, he'll have a Holter monitor. He recently saw his fabricator assembler metal products and found him to be in good health.He was referred back to his primary care physician for further evaluation. Questions H ave you had any new onset fever, chills, cough, congestion, sore throat, shortness of breath, muscle aches? N o * ROS: G eneral/Constitutional: pain o nly [...] speaking d enies. D izziness d enies.?Headache t hat is chronic. L ow back pain d enies. P [...] He is but and his lives in [place]. He has 2 sons and 1 daughter and no grandchildren. 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 * Medications: T akingXarelto 20 MG Tablet 1 tablet Orally Once a day Carvedilol 6.25 MG Tablet 1 tablet Orally twice a day metFORMIN HCl ER (MOD) 500 MG Tablet Extended Release 24 Hour 1 tablet with evening meal Orally Twice a day Vitamin D3 1000 UNIT Capsule 1 capsule Orally Once a day amLODIPine Besylate 5 MG Tablet 1 tablet Orally Once a day Tresiba FlexTouch 100 UNIT/ML Solution Pen-injector 14 Units Subcutaneous In the morning Stool Softener Finasteride 5 MG Tablet 1 tablet Orally Once a day Tamsulosin HCl 0.4 MG Capsule TAKE 2 CAPSULES AT BEDTIME Oral Taking Xarelto 20 MG Tablet 1 tablet Orally Once a day Taking Carvedilol 6.25 MG Tablet 1 tablet Orally twice a day Taking metFORMIN HCl ER (MOD) 500 MG Tablet Extended Release 24 Hour 1 tablet with evening meal Orally Twice a day Taking Vitamin D3 1000 UNIT Capsule 1 capsule Orally Once a day Taking amLODIPine Besylate 5 MG Tablet 1 tablet Orally Once a day Taking Tresiba FlexTouch 100 UNIT/ML Solution Pen-injector 14 Units Subcutaneous In the morning Taking Stool Softener Taking Finasteride 5 MG Tablet 1 tablet Orally Once a day Taking Tamsulosin HCl 0.4 MG Capsule TAKE 2 CAPSULES AT BEDTIME Oral DiscontinuedTamsulosin HCl 0.4 MG Capsule 2 capsule Orally at night Medication List reviewed and reconciled with the patientDiscontinued Tamsulosin HCl 0.4 MG Capsule 2 capsule Orally at night Medication List reviewed and reconciled with the patient * Allergies: N o Known Drug Allergyno[Allergies Verified] Objective: * Vitals: H t: 71, Wt:183, BMI:25.52, BP:145/85, HR:61, Temp:98.4, Wt-k.01. * Examination: G eneral Examination: GENERAL APPEARANCE: p leasant, well nourished, well developed, in no acute distress, calm and relaxed: overweight. HEAD: a traumatic, normocephalic. EYES: e david, perrla, anicteric, conjugate, Without nystagmus. EARS: n ormal. NOSE: s eptum intact. ORAL CAVITY: n ormal, unremarkable. NECK/THYROID: n o jugular venous distention, no carotid bruit, thyroid normal. LYMPH NODES: n o enlarged lymph nodes,spleen normal. SKIN: n o suspicious lesions, anicteric. HEART: n o clicks, gallops, murmurs, or rubs, regular rhythm, S1, S2 normal, no s3, or vascular bruits. LUNGS: : diminished breath sounds throughout: no wheezes, rales, rhonchi: good air movement. BREASTS: no masses palpable bilaterally. ABDOMEN: b owel sounds normal, no ascites, no organomegaly, no mass: overweight. RECTAL EXAM: n ot examined. MUSCULOSKELETAL: e xtremities unremarkable, no clubbing, cyanosis or edema. PERIPHERAL PULSES: n ormal. NEUROLOGIC: a lert and oriented, cranial nerves 2-12 grossly intact, deep tendon reflexes 2+ symmetrical, motor strength normal upper and lower extremities, sensory exam intact. PSYCH: a lert, oriented. Assessment: * Assessment: 1. F ormer smoker - Z87.891 (Primary) N otes :He has a plan to prevent relapse in times of stress and illness. He is highly motivated not to smoke. 2 . O verweight - E66.3 N otes :His body mass index is 26.6 and he has lost several pounds. I recommend a gradual weight loss until about a mass index is in the normal range. We discussed the elements of a weight loss diabetic diet. 3 . D M (diabetes mellitus) - E11.9 N otes :His fasting blood glucose level was 73. His A1c is 6.7. He is free of symptoms. I will refer him back to his primary care physician for management of his diabetes. 4 . H TN (hypertension) - I10 N otes :His blood pressure was slightlyy elevated at 145/85 t adi. I recommended sodium restriction, weight loss, but made no change in his medications.He was referred back to primary care 5 . N on-small cell carcinoma of lung - C34.90 N otes :He remains free of recurrent disease with a normal mental status. 6 . R otator cuff tear - M75.100 N otes :The pain is stable but he does not wish to have any treatment at this time. 7 . P aroxysmal atrial fibrillation - I48.0 N otes :He was in sinus rhythm today with no symptoms. His medications were continued without change. 8 . O ther chronic pulmonary embolism without acute cor pulmonale - I27.82? Notes :He has had no bleeding on his anticoagulation. He has had no recurrent DVT or pulmonary emboli. His breathing is unremarkable today. He suffered a deep venous thrombosis of his right lower extremity with bilateral pulmonary emboli in March of 2017. He has been anticoagulated since. 9 . B enign prostatic hyperplasia with lower urinary tract symptoms - N40.1? Notes :He is stable with nocturia once or twice a night. No change in his regimen is necessary. Plan: * Treatment: 2. O verweight L AB: PROFILE, FASTING (COMPREHENSIVE METABOLIC) L AB: PSA, TOTAL L AB: CBC w DIFF L AB: Lipid Panel L AB: Hemoglobin A1c 3. D M (diabetes mellitus) L AB: PROFILE, FASTING (COMPREHENSIVE METABOLIC) L AB: PSA, TOTAL L AB: CBC w DIFF L AB: Lipid Panel L AB: Hemoglobin A1c 4. H TN (hypertension) L AB: PROFILE, FASTING (COMPREHENSIVE METABOLIC) L AB: PSA, TOTAL L AB: CBC w DIFF L AB: Lipid Panel L AB: Hemoglobin A1c 5. N on-small cell carcinoma of lung L AB: PROFILE, FASTING (COMPREHENSIVE METABOLIC) L AB: PSA, TOTAL L AB: CBC w DIFF L AB: Lipid Panel L AB: Hemoglobin A1c * Procedure Codes: * Preventive Medicine: Counseling: C are goal follow-up plan: Counseling for abnormal BMI given Y es Above Normal BMI Follow-up D ietary management education, guidance, and counseling S moking/Tobacco Use Patient counseled on the dangers of tobacco use and urged to quit. 0 12/04/2024 DM Care Plan: P atient Lifestyle Goals [...] are in the most, Eat a healthy diet, Exercise at least 3xs per week for at least 30 mins.? * Follow Up: 2 Weeks,6 Months (Reason: Telehealth, OV) * Images: * Sign off status: Completed true * Provider: Elaine Cleveland MD Date: 0 12/04/2024 Generated for Rosana zavala/Lucy/eTransmitting on: 1 05/28/2024 05:39 PM EST History and Physical Notes * HPI (History of Present Illness) Category Sub-Category Detail Notes COVID-19 Screening Questions Have you had any new onset fever, chills, cough, congestion, sore throat, shortness of breath, muscle aches?: No Examination Category Sub-Category Detail Notes General Examination GENERAL APPEARANCE: pleasant , well nourished, well developed, in no acute distress, calm and relaxed: overweight HEAD: atraumatic, normocep halic EYES: eomi, perrla, anicte carla, conjugate, Without nystagmus EARS: normal NOSE: septum intact NECK/THYROID: no jugular venous di stention, no carotid bruit, thyroid normal HEART: no clicks, gallops, murmurs, or rubs, regular rhythm, S1, S2 normal, no s3, or vascular bruits LUNGS: : diminished breath sounds throughout: no wheezes, rales, rhonchi: good air movement ABDOMEN: bowel sounds normal, no ascites, no organomegaly, no mass: overweight NEUROLOGIC: alert and oriented, cranial nerves 2-12 [...]
--- OUTSIDE RECORDS SUMMARY | 2024-12-18 09:45 | XMS_ITS ---
Author Organization Gregory Cleveland III, MD Address [address] [place] [address] [place] [address] Care Team Providers Care Hydro Excavation Operator Name Role Phone Trena Bentley ([place]) Primary Care Provider Un available Dr. Gregory Cleveland III [facility] Allergies Allergen (clinical drug ingredient) Drug/Non Drug Allergy documented on EMR Reaction Allergy Type Onset Date Status No Known Drug Allergy Unknown Drug Allergy Active REASON FOR VISIT Non-small cell lung cancer, Diabetes, Hypertension, COPD, Benign prosthetic hypertrophy Medications Medication SIG (Take, Route, Frequency, Duration) Notes Start Date End Date Status Tresiba FlexTouch 100 UNIT/ML 14 Units Subcutaneous In the morning Active amLODIPine Besylate 5 MG 1 tablet Orally Once a day Active Tamsulosin HCl 0.4 MG TAKE 2 CAPSULES AT BEDTIME Oral Active Stool Softener Activ e Finasteride 5 MG 1 tablet Orally Once a day Active Carvedilol 6.25 MG 1 tablet Orally twic e a day Active metFORMIN HCl ER (MOD) 500 MG 1 tablet with evening meal Orally Twice a day Active Xarelto 20 MG 1 [...] Additional Findings: Tobacco Non-User Ex-cigaret te smoker Encounters Encounter Location Date Provider Diagnosis Gregory Cleveland III, MD [address] [place] [address] [place] [address] 12/18/2024 Gregory Cleveland Former smoker Z87.89 1 ; Non-small cell carcinoma of lung C34.90 ; Overweight E66.3 ; HTN (hypertension) I10 and Rotator cuff tear M75.100 Assessments Encounter Date Diagnosis (ICD Code) Assessment Notes Treatment Notes Treatment Clinical Notes 12/18/2024 Former smoker (ICD-10 - Z87.891) He has a plan to prevent relapse in times of stress and illness. He is highly motivated not to smoke. 12/18/2024 Non-small cell carcinoma of lung (ICD-10 - C34.90) He remains free of recurrent disease with a normal mental status. 12/18/2024 Overweight (ICD-10 - E66.3) His body mass index is 26.6 and he has lost several pounds. I recommend a gradual weight loss until about a mass index is in the normal range. We discussed the elements of a weight loss diabetic diet. 12/18/2024 HTN (hypertension) (ICD-10 - I10) His blood pressure was slightlyy elevated at 145/85 today. I recommended sodium restriction, weight loss, but made no change in his medications.He was referred back to primary care 12/18/2024 Rotator cuff tear (ICD-10 - M75.100) The pain is stable but he does not wish to have any treatment at this time. Plan Of Treatment Medication Medication Name Sig Start Date Stop Date Notes Tresiba FlexTouch 100 UNIT/ML 14 Units S ubcutaneous In the morning amLODIPine Besylate 5 MG 1 tablet Orally Once a day Tamsulosin HCl 0.4 MG TAKE 2 CAPSULES AT BEDTIME Oral Stool Softener Finasteride 5 MG 1 tablet Orally Once a day Carvedilol 6.25 MG 1 tablet Orally twice a day metFORMIN HCl ER (MOD) 500 MG 1 tablet w ith evening meal Orally Twice a day Xarelto 20 MG 1 tablet Orally Once a day Vitamin D3 1000 UNIT 1 capsule Orally Once a day Next Appt Details Follow Up: as scheduled in Vilma rojas, Reason: OV Provider Name:Gregory Cleveland , 06/17/2025 02:00:00 PM, [address] [place] [address] DR, [address], [place], [address], Progress Notes * Jah CURTIS EDOB:09/1935 (89 yo M)Acc No.[id number]:12/18/2024 Patient: Jah ROSS Provider: Elaine Cleveland MD :1935 A ge:89 Y S ex:Male Date:12/18/2024 Address:[facility] [address], [facility] Pcp:Trena Bentley ([place]) Subjective: * Chief Complaints: * N on-small cell lung cancerDiabetesHypertensionCOPDBenign prosthetic hypertrophy * HPI: * : This telehealth visit took place over 15 minutes with the patient at home and me in my office. He gave consent for billing. He had an office visit recently but had not yet had his blood work done. Since that visit he has had comprehensive blood work very we reviewed it today in detail. He was given routine follow-up appointments. Telehealth L ocation of provider rendering services: { ...} [address] [facility] [address] L ocation of patient: ina benoit listed in demographics for today's visit P atient identification confirmed using: COLLETTE Melchor ame T elehealth method: T elephone only. Patient not visible to care provider. C onsent: P atient verbally consented to treatment, Patient verbally consented to billing insurance company, Patient informed of any privacy concerns related to method of visit T otal time spent with patient (mins) 1 5 * ROS: G eneral/Constitutional: pain o nly normal aches and pains. C hills d enies.?Fatigue a dmits. F ever d enies. E NT: Decreased hearing m ild. R espiratory: Cough d enies. C ardiovascular: Chest pain with exertion d enies. D yspnea on exertion?denies. S hortness of breath d enies. G astrointestinal: Constipation d enies. D ecreased appetite d enies.?Diarrhea d enies. H eartburn o ccasional. N ausea d enies. R ectal bleeding [...] x-cigarette smoker Anselmo hernandez was born in [facility]. He is but and his lives in [place]. He has 2 sons and 1 daughter and no grandchildren. 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 * Medications: T akingXarelto 20 MG Tablet [...] Capsule TAKE 2 CAPSULES AT BEDTIME Oral Medication List reviewed and reconciled with [...] Capsule TAKE 2 CAPSULES AT BEDTIME Oral Medication List reviewed and reconciled with the patient * Allergies: N o Known Drug Allergyno[Allergies Verified] Objective: * Vitals: * P ast Orders: Lab:Lipid Panel * Collection Date 12/05/2024 04/14/2020 Collection Time 07:30 AM 10:20 AM Order Date 12/04/2024 04/14/2020 Triglycerides 112 (Ref Range: <150 mg/dL) 121 (Ref Range: mg/dL) Cholesterol 129 (Ref Range: <200 mg/dL) 159 (Ref Range: mg/dL) LDL Cholesterol Calculated 79 (Ref Range: <100 mg/dL) 102 (Ref Range: mg/dl) HDL Cholesterol 28 L (Ref Range: >40 mg/dL) 33 (Ref Range: mg/dL) * Lab:Prostate Specific Antige n * Collection Date 12/05/2024 06/22/2021 Collection Time 07:30 AM Order Date 12/05/2024 06/22/2021 Prostate Specific Antigen 1.20 (Ref Range: <0.05-4.0 ng/mL) 2.79 (Ref Range: <0.05-4.0 ng/mL) * Lab:Comprehensive Met. Panel * Collection Date 12/05/2024 06/22/2021 10/15/2020 Collection Time 07:30 AM 10:05 AM Order Date 12/05/2024 06/22/2021 10/15/2020 Sodium 141 (Ref Range: 135-145 mmol/L) 138 (Ref Range: 135-145 mmol/L) 143 (Ref Range: 135-145 mmol/L) Bilirubin Total 0.4 (Ref Range: 0.0-1.0 mg/dL) 0.8 (Ref Range: 0.0-1.0 mg/dL) 0.7 (Ref Range: 0.0-1.0 mg/dL) Aspartate Amino Transferase 25 (Ref Range: 5-37 U/L) 17 (Ref Range: 5-37 U/L) 18 (Ref Range: 5-37 U/L) Alanine Aminotransferase 23 (Ref Range: 0-40 U/L) 19 (Ref Range: 0-40 U/L) 22 (Ref Range: 0-40 U/L) Total Protein 7.0 (Ref Range: 6.5-8.0 g/dL) 7.0 (Ref Range: 6.5-8.0 g/dL) 7.1 (Ref Range: 6.5-8.0 g/dL) Albumin Level 4.4 (Ref Range: 3.5-5.0 g/dL) 4.4 (Ref Range: 3.5-5.0 g/dL) 4.4 (Ref Range: 3.5-5.0 g/dL) Alkaline Phosphatase 89 (Ref Range: 39-117 U/L) 107 (Ref Range: 39-117 U/L) 92 (Ref Range: 39-117 U/L) Potassium 4.3 (Ref Range: 3.3-5.1 mmol/L) 4.3 (Ref Range: 3.3-5.1 mmol/L) 4.4 (Ref Range: 3.3-5.1 mmol/L) Chloride 104 (Ref Range: 96-108 mmol/L) 101 (Ref Range: 96-108 mmol/L) 104 (Ref Range: 96-108 mmol/L) Carbon Dioxide 32 H (Ref Range: 22-29 mmol/L) 27 (Ref Range: 22-29 mmol/L) 31 H (Ref Range: 22-29 mmol/L) Anion Gap 9 L (Ref Range: 12-20) 14 (Ref Range: 12-20) 12 (Ref Range: 12-20) Blood Urea Nitrogen 20 H (Ref Range: 9-16 mg/dL) 18 H (Ref Range: 9-16 mg/dL) 19 H (Ref Range: 9-16 mg/dL) Creatinine 0.98 (Ref Range: 0.5-1.4 mg/dL) 1.22 (Ref Range: 0.5-1.4 mg/dL) 1.03 (Ref Range: 0.5-1.4 mg/dL) Estimated Glomerular Filt Rate > 60 57 > 60 Glucose Random 131 H (Ref Range: 60-115 mg/dL) 235 H (Ref Range: 60-115 mg/dL) 114 (Ref Range: 60-115 mg/dL) Calcium 9.1 (Ref Range: 8.4-10.2 mg/dL) 10.1 (Ref Range: 8.4-10.2 mg/dL) 9.2 (Ref Range: 8.4-10.2 mg/dL) * Lab:Complete Blood Count Aut o Diff * Collection Date 12/05/2024 06/22/2021 10/15/2020 Collection Time 07:30 AM 11:57 AM 10:05 AM Order Date 12/05/2024 06/22/2021 10/15/2020 White Blood Count 5.9 (Ref Range: 4.8-10.8 X10*3/uL) 7.2 (Ref Range: 4.8-10.8 X10*3/uL) 7.1 (Ref Range: 4.8-10.8 X10*3/uL) Red Blood Count 5.21 (Ref Range: 4.60-5.80 X10*6/uL) 5.62 (Ref Range: 4.60-5.80 X10*6/uL) 5.64 (Ref Range: 4.60-5.80 X10*6/uL) Hemoglobin 15.2 (Ref Range: 14.0-18.0 g/dl) 15.9 (Ref Range: 14.0-18.0 g/dl) 16.0 (Ref Range: 14.0-18.0 g/dl) Hematocrit 43.6 (Ref Range: 42.0-52.0 %) 48.2 (Ref Range: 42.0-52.0 %) 48.3 (Ref Range: 42-52 %) Mean Corpuscular Volume 83.7 (Ref Range: 80.0-98.0 fL) 85.8 (Ref Range: 80.0-98.0 fL) 85.6 (Ref Range: 80-98 fL) Mean Corpuscular Hemoglobin 29.2 (Ref Range: 27.0-33.0 pg) 28.3 (Ref Range: 27.0-33.0 pg) 28.4 (Ref Range: 27.0-33.0 pg) Mean Corpuscular HGB Conc 34.9 (Ref Range: 31.0-36.0 g/dl) 33.0 (Ref Range: 31.0-36.0 g/dl) 33.1 (Ref Range: 31.0-36.0 g/dl) Red Cell Distribution Width 13.0 (Ref Range: 11.0-16.0 %) 13.2 (Ref Range: 11.0-16.0 %) 13.2 (Ref Range: 11.0-16.0 %) Platelet Count 149 L (Ref Range: 160-400 X10*3/uL) 171 (Ref Range: 160-400 X10*3/uL) 156 L (Ref Range: 160-400 X10*3/uL) Mean Platelet Volume 10.1 (Ref Range: 9.4-12.4 fL) 10.7 (Ref Range: 9.4-12.4 fL) 10.8 (Ref Range: 9.4-12.4 fL) Neutrophils Percent Auto 61.2 (Ref Range: 45-73 %) 64.3 (Ref Range: 45-73 %) 63.6 (Ref Range: 45-73 %) Imm Gran Pct Auto 0.3 (Ref Range: 0.0-0.4 %) 0.4 (Ref Range: 0.0-0.4 %) 0.3 (Ref Range: 0.0-0.4 %) Lymphocytes Percent Auto 24.2 (Ref Range: 20-40 %) 24.0 (Ref Range: 20-40 %) 25.2 (Ref Range: 20-40 %) Monocytes Percent Auto 8.9 (Ref Range: 2-11 %) 7.3 (Ref Range: 2-11 %) 7.1 (Ref Range: 2-11 %) Eosinophils Percent Auto 4.4 H (Ref Range: 0-4 %) 3.3 (Ref Range: 0-4 %) 3.0 (Ref Range: 0-4 %) Basophils Percent Auto 1.0 (Ref Range: 0-2 %) 0.7 (Ref Range: 0-2 %) 0.8 (Ref Range: 0-2 %) NRBC Pct Auto 0.0 (Ref Range: 0.0-0.2 /100WBC) 0.0 (Ref Range: 0.0-0.2 /100WBC) 0.0 (Ref Range: 0.0-0.2 /100WBC) Neutrophils Absolute Auto 3.6 (Ref Range: 2.0-8.3 x10*3/uL) 4.6 (Ref Range: 2.0-8.3 x10*3/uL) 4.5 (Ref Range: 2.0-8.3 X10*3/uL) Imm Gran Abs Auto 0.02 (Ref Range: 0.00-0.03 X10*3/uL) 0.03 (Ref Range: 0.00-0.03 X10*3/uL) 0.02 (Ref Range: 0.00-0.03 X10*3/uL) Lymphocytes Absolute Auto 1.4 (Ref Range: 1.2-4.9 X10*3/uL) 1.7 (Ref Range: 1.2-4.9 X10*3/uL) 1.8 (Ref Range: 1.2-4.9 X10*3/uL) Monocytes Absolute Auto 0.5 (Ref Range: 0.1-1.2 X10*3/uL) 0.5 (Ref Range: 0.1-1.2 X10*3/uL) 0.5 (Ref Range: 0.1-1.2 X10*3/uL) Eosinophils Absolute Auto 0.3 (Ref Range: 0.0-0.4 X10*3/uL) 0.2 (Ref Range: 0.0-0.4 X10*3/uL) 0.2 (Ref Range: 0.0-0.4 X10*3/uL) Basophils Absolute Auto 0.1 (Ref Range: 0.0-0.2 X10*3/uL) 0.1 (Ref Range: 0.0-0.2 X10*3/uL) 0.1 (Ref Range: 0.0-0.2 X10*3/uL) NRBC Abs Auto 0.000 (Ref Range: 0.0-0.012 X10*3/uL) 0.000 (Ref Range: 0.0-0.012 X10*3/uL) 0.000 (Ref Range: 0.0-0.012 X10*3/uL) * Lab:Hemoglobin A1c * Collection Date 12/05/2024 04/14/2020 Collection Time 07:30 AM 10:20 AM Order Date 12/04/2024 04/14/2020 Hemoglobin A1c % 6.8 H (Ref Range: <6.0 %) 7.0 (Ref Range: %) Estimated Average Glucose 148 (Ref Range: mg/dL) 154 (Ref Range: mg/dL) Assessment: * Assessment: 1. N on-small cell carcinoma of lung - C34.90 (Primary) N otes :He remains free of recurrent disease with a normal mental status. 2 . F ormer smoker - Z87.891 N otes :He has a plan to prevent relapse in times of stress and illness. He is highly motivated not to smoke. 3 . O verweight - E66.3 N otes :His body mass index is 26.6 and he has lost several pounds. I recommend a gradual weight loss until about a mass index is in the normal range. We discussed the elements of a weight loss diabetic diet. 4 . H TN (hypertension) - I10 N otes :His blood pressure was slightlyy elevated at 145/85 today. I recommended sodium restriction, weight loss, but made no change in his medications.He was referred back to primary care 5 . R otator cuff tear - M75.100 N otes :The pain is stable but he does not wish to have any treatment at this time. Plan: * Treatment: * Procedure Codes: 9 8012 SYNCH AUDIO-ONLY EST SF 10 * Preventive Medicine: DM Care Plan: P atient Lifestyle Goals P atient wants to be able to manage diabetes without too much effort. T reatment Goals H bA1C < 7.0, Blood Sugars less than < 115. B arriers n o barriers. S elf-Managment Goals W ork on weight loss, with a goal of losing 1 lb per week. * Follow Up: a s scheduled in June (Reason: OV) * Images: * Sign off status: Completed true * Provider: Elaine Cleveland MD Date: 0 12/18/2024 Generated for Rosana zavala/Lucy/eTransmitting on: 1 05/28/2024 05:38 PM EST History and Physical Notes * HPI (History of Present Illness) Category Sub-Category Detail Notes Telehealth Location of [facility] rendering services:: {...} [address] [facility] [address] Location of patient:: address listed in demographics for today's visit Patient identification confirmed using:: Name, Telehealth method:: Telephone only. Graciela ent not visible to care provider. Consent:: Patient verbally c onsented to treatment, Patient verbally consented to billing insurance company, Patient informed of any privacy concerns related to method of visit Total time spent with patient (mins): 15
--- OUTSIDE RECORDS SUMMARY | 2025-03-25 11:45 | XMS_ITS ---
Author Organization Gregory Cleveland III, MD Address [address] [place] [address] [place] [address] Care Team Providers Care Medical Writer Name Role Phone Trena Bentley) Primary Care Provider Un available Dr. Gregory Cleveland III Unavailable REASON FOR VISIT Follow up Encounters Encounter Location Date Provider Diagnosis Gregory Clevelnad III, MD [address] [place] [address] [place] [address] 03/25/2025 Gregory Cleveland Plan Of Treatment Next Appt Details Provider Name:Gregory Cleveland , 06/17/2025 02:00:00 PM, [address] [place] [address] [place], [address], Progress Notes * Jah CURTIS EDOB:09/1935 (89 yo M)Acc No.[id number]:03/25/2025 Progress Notes Patient: Jah ROSS Provider: Elaine Cleveland MD :1935 A ge:89 Y S ex:Male Date:03/25/2025 Address:[address] [phone] Pcp:Trena Bentley ([place]) Subjective: * Chief Complaints: * 1 . Follow up. * Medical History: Objective: * Vitals: Assessment: Plan: * Treatment: * Images: * The named appointment provid er may or may not be the originator of this progress note, and it is not deemed complete until electronically signed by the appointment provider. Sign off status: Pending * Provider: Elaine Cleveland MD Date: 05/26/2024 Generated for Rosana zavala/Lucy/Sammy on: 05/28/2024 05:38 PM EST
--- NOTE | 2025-03-27 13:42 | MHC.PC.OV ---
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: No Accompanied by: Self / Same As Patient Allergies No Known Allergies (No Known Allergies*) Allergy (Verified 03/27/25 13:43) Medication List - Last Reconciled 03/27/25 by Andrea Riojas MD amlodipine 5 mg PO DAILY carvedilol 6.25 mg PO BID cholecalciferol (vitamin D3) 25 mcg PO DAILY finasteride (Proscar) 5 mg PO DAILY 90 days flash glucose sensor (FreeStyle Susan 14 Day Sensor kit) As directed FreeStyle Susan 3 Plus Sensor (blood-glucose sensor) every 15 daus NS FreeStyle Susan 3 Stovall (blood-glucose,licensed insurance sales agent,cont) As directed NS insulin degludec (Tresiba FlexTouch U-100 insulin) 36 units (0.36 mL) subcut DAILY metformin ER 500 mg PO BID pen needle, diabetic As directed rivaroxaban (Xarelto) 20 mg PO DAILY tamsulosin 0.8 mg (2 x 0.4 mg) PO DAILY Tobacco use date assessed: 09/26/24 Fall risk assessment: No Falls in past year Last assessed Fall Risk: 03/27/25 Dental Screening Dental Screen Date: 09/26/24 HPI HPI Comments History of Present Illness Details History of Present Illness The patient is an 89 year old male presenting for an annual physical exam and management of chronic conditions, with a primary new complaint of insomnia. His insomnia started about a month ago, initially causing him to wake at 3 AM, which has now shifted to 4 AM over the past week. He reports feeling sleepy but is unable to return to sleep and has tried melatonin without success. The patient has a history of a stroke approximately 15 years ago, which is attributed to his known atrial fibrillation. He has been on a blood thinner since then and is currently taking Xarelto. He also has a history of hypertension, which was difficult to control post-stroke, and is managed with amlodipine and carvedilol. The patient has diabetes, for which he takes Tresiba 36 units in the morning and metformin 500 mg twice a day. He uses an insulin sensor, and his last HbA1c in November was 6.8. He recently increased his insulin dose from 14 to 16 units based on the monitor's suggestion. He is also treated for benign prostatic hyperplasia with finasteride and tamsulosin. He reports being in good health otherwise and maintains an active lifestyle, going to the gym to walk on a treadmill and perform upper body exercises. His medications are organized by his natural resources professor into daily pill boxes. Medical History: - Atrial fibrillation, diagnosed approximately 15 years ago - History of stroke, approximately 15 years ago - Hypertension - Diabetes mellitus - Benign prostatic hyperplasia - Insomnia, onset one month ago Medications: - Amlodipine 5 mg for hypertension - Carvedilol 6.25 mg twice a day for hypertension - Xarelto 20 mg for atrial fibrillation - Finasteride 5 mg for prostate - Tamsulosin 0.8 mg for prostate - Tresiba 36 units daily in the morning for diabetes - Metformin 500 mg twice a day for diabetes - Trazodone at night for sleep - Melatonin for sleep, which has not been effective Diagnostic Results: - Labs: Last HbA1c was 6.8 in November. - Other blood work, including kidney function and cholesterol, was noted to be good. - Tests and Diagnostics: Insulin sensor shows 78% of readings are in target range. Social History - Functional Status: The patient drives and has a natural resources professor who organizes his daily medications. - Exercise: He reports going to the gym, where he walks a total of one mile on the treadmill and does 20 minutes of upper body work. Health Maintenance - This visit served as his annual physical exam. - Plan includes a follow-up appointment in six months for ongoing management of chronic conditions. - Orders were placed for lab work to be completed one week prior to the next visit. - The patient engages in regular physical activity, including walking and upper body workouts. Patient was informed and verbally consented to the use of an ambient scribe for clinic note documentation during this visit. Vital signs reviewed. Comprehensive history, review of systems, and physical exam completed. Medications, allergies, and problem list reviewed and updated. Counseling provided on nutrition, regular exercise, sleep hygiene, and moderation of alcohol use. Discussed age-appropriate screenings (mammogram, colonoscopy, Pap, bone density) and immunizations (flu, COVID, shingles, Tdap). Screened for depression, fall risk, and home safety; no current concerns. Discussed stress management, dental and vision care, and importance of ongoing preventive follow-up. Routine labs ordered for metabolic and lipid screening. Patient educated on healthy lifestyle and agrees with the plan. 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) USHA (obstructive sleep apnea) Type 2 diabetes mellitus Hypertension, essential Atrial fibrillation Pulmonary embolism, bilateral (~2016) Surgical History History of colonoscopy History of surgery on right wrist History of rotator cuff surgery History of brain surgery (~02/2017) History of lobectomy of lung (~04/2015) Family History (Updated 03/27/25 @ 13:49 by Cecy Johnson [facility]) Mother Breast cancer Myocardial infarction Father COPD (chronic obstructive pulmonary disease) Brother Myocardial infarction Social History Housing: House Patient Tobacco Use Status: Former Tobacco user e-Cigarette/Vaping Use: Former Use service: No Current occupational status: retired Cognitive needs: No Hearing needs: No Vision needs: Yes (rx glasses) Questionnaire Thrive Questionnaire Date Thrive assessed: 09/26/24 AUDIT C Alcohol Use Questionnaire (AUDIT-C) 1. How often do you have a drink containing alcohol?: Monthly or less 2. How many drinks containing alcohol do you have on a typical day when you are drinking?: 1 or 2 3. How often do you have six or more drinks on one occasion?: Never Total Score: 1 AUDREY-7 AMB Questionnaire AUDREY-7 Date AUDREY - 7 assessed: 09/26/24 Source: Developed by Drs. Gregory Bey, Rosalie Aguilar, Francesco Mendez and colleagues, with an educational mackenzie from [employer]. Review of Systems Narrative Review of Systems - Constitutional: Reports feeling tired due to poor sleep. - Neurological: Reports insomnia for the past month. Denies headaches. - Cardiovascular: Denies chest pain. - Respiratory: Denies shortness of breath. - Gastrointestinal: Reports normal bowel movements. - Genitourinary: Reports normal urination. All systems reviewed & are unremarkable except as reviewed in HPI and above Physical exam (Primary Care) Vital Signs: Last Vital Signs Temp 96.9 F 03/27/25 13:44 Pulse 76 03/27/25 13:44 Resp 16 03/27/25 13:44 BP 130/84 03/27/25 13:44 Pulse Ox 96 03/27/25 13:44 Oxygen Delivery Method Room Air 03/27/25 13:44 BMI result Body Mass Index 24.3 Tobacco/Smoking Status: Tobacco use Status Tobacco use date assessed 09/26/24 03/27/25 13:51 Patient Tobacco Use Status Former Tobacco user 03/27/25 13:51 e-Cigarette/Vaping Use Former Use 03/27/25 13:51 Thrive Assessment: Date of Thrive Assessment Date Thrive assessed 09/26/24 03/27/25 13:51 Narrative Physical Exam General: +Alert and oriented, Well nourished, No acute distress. Eye: Pupils are equal, round and reactive to light, Intact accommodation, Extraocular movements are intact, Normal conjunctiva, Vision unchanged. HENT: Normocephalic, Atraumatic, Tympanic membranes are clear, Normal hearing, Oral mucosa is moist, No pharyngeal erythema, Ear canals patent. Respiratory: Lungs CTA bilaterally, No wheeze, Respirations are non-labored. Cardiovascular: Regular rate, Regular rhythm, S1 auscultated, S2 auscultated, No murmur, Good pulses equal in all extremities, Normal peripheral perfusion, No edema. Gastrointestinal: Soft, Non-tender, Non-distended, Normal bowel sounds, No organomegaly. Musculoskeletal: Normal range of motion, Normal strength, No tenderness, No swelling, No deformity, Normal gait. Integumentary: Warm, Dry, Lloyd, Intact, Lesion on hand present, not changed in size. Neurologic: Alert, Oriented, Normal sensory, Normal motor function, No focal defects, Cranial Nerves II-XII are grossly intact, Normal deep tendon reflexes. Psychiatric: Cooperative, Appropriate mood & affect, Normal judgment. Coding Level of Care Code Est Pt Level 4 (66445) Add On Problem Visit Only Diagnoses Other insomnia G47.09 Insomnia type: other insomnia Atrial fibrillation, unspecified type I48.91 Atrial fibrillation type: unspecified Type 2 diabetes mellitus with unspecified complications E11.8 Hypertension, essential I10 BPH with elevated PSA N40.0; R97.20 Assessment & Plan Assessment & Plan (1) Insomnia: Comment: - The patient reports a one-month history of waking early in the morning, which has not responded to melatonin. - The plan is to increase his trazodone dose from 50 mg to 100 mg to be taken at bedtime to improve sleep. Code(s): G47.00 - Insomnia, unspecified Category: Medical Qualifiers: Insomnia type: other insomnia Qualified Code(s): G47.09 - Other insomnia (2) Atrial fibrillation: Comment: - The patient is stable on Xarelto 20 mg. - The rationale for continuing anticoagulation was reinforced to the patient, explaining its role in preventing another stroke. - No medication changes are planned. Code(s): I48.91 - Unspecified atrial fibrillation Category: Medical Qualifiers: Atrial fibrillation type: unspecified Qualified Code(s): I48.91 - Unspecified atrial fibrillation (3) Type 2 diabetes mellitus with unspecified complications: Comment: - The patient is well-controlled with a last HbA1c of 6.8, which is within the goal of <7.5 for his age, and a 78% [id number] on his sensor. - He will continue his current regimen of Tresiba and metformin. - No changes planned. Code(s): E11.8 - Type 2 diabetes mellitus with unspecified complications Category: Medical (4) Hypertension, essential: Comment: - The patient's blood pressure is well-managed on amlodipine and carvedilol. - He will continue his current medications. Code(s): I10 - Essential (primary) hypertension Category: Medical (5) BPH with elevated PSA: Comment: - He is stable on finasteride and tamsulosin with no reported urinary symptoms. - He will continue his current medications. Code(s): N40.0 - Benign prostatic hyperplasia without lower urinary tract symptoms; R97.20 - Elevated prostate specific antigen [PSA] Category: Medical Plan: Health Maintenance: - This visit served as his annual physical exam. - Plan includes a follow-up appointment in six months for ongoing management of chronic conditions. - Orders were placed for lab work to be completed one week prior to the next visit. - The patient engages in regular physical activity, including walking and upper body workouts. Patient was informed and verbally consented to the use of an ambient scribe for clinic note documentation during this visit. Plan I addressed the patient's primary complaint of insomnia, and we agreed to increase his trazodone dose to 100 mg at night. I also discussed his concerns about long-term use of a blood thinner and explained that continuing Xarelto is crucial for stroke prevention due to his atrial fibrillation. I commended him on his excellent diabetes control, noting his recent A1c of 6.8 is well below the target of 7.5 for his age. We planned for a follow-up visit in six months, with instructions to complete lab work one week prior. Orders: Orders Comprehensive Met. Panel 6 Months Z00.00 - Encounter for general adult medical examination without abnormal findings Hemoglobin A1c 6 Months Z00.00 - Encounter for general adult medical examination without abnormal findings Lipid Panel 6 Months Z00.00 - Encounter for general adult medical examination without abnormal findings Microalbumin, Random (w Creat) 6 Months Z00.00 - Encounter for general adult medical examination without abnormal findings Complete Blood Count Auto Diff 6 Months Z00.00 - Encounter for general adult medical examination without abnormal findings TSH reflex Free T4 6 Months Z00.00 - Encounter for general adult medical examination without abnormal findings Vitamin D 25-OH Total 6 Months Z00.00 - Encounter for general adult medical examination without abnormal findings Medications: New trazodone 100 mg PO BEDTIME 90 tabs 1RF Discontinued trazodone Discontinued Reason: Doctor's Order 50 mg PO BEDTIME PRN 90 tabs 1RF sleep Patient Instructions: - Take 100 mg of Trazodone at night before bed to help with your sleep. - Continue all your other current medications as prescribed. - It is important that you continue taking your blood thinner (Xarelto) to prevent a future stroke. - Please schedule a follow-up appointment to be seen again in about six months. - One week before your next appointment, please go to any of our labs to have your blood drawn. The order will be in the system for you.
[2025-03-27 13:44] VITALS: BP 130/84; PULSE 76; RESP 16; TEMP 36.1; O2SAT 96; BMI 24.3
--- OUTSIDE RECORDS SUMMARY | 2025-03-27 17:39 | XMS_ITS | Patient Health Record ---
Author Organization Gregory Cleveland III, MD Address [address] [place] [address] Care Team Providers Care Therapeutic Assistant Name Role Phone LuzmaFabián Trena (Jania) Primary Care Provider Un available Dr. Gregory Cleveland III Unavailable [phone] Allergies Allergen (clinical drug ingredient) Drug/Non Drug Allergy documented on EMR Reaction Allergy Type Onset Date Status No Known Drug Allergy Unknown Drug Allergy Active Results Component Value Reference Range Notes Lipid Panel Reviewed date:12/10/2024 04:49:55 AM Interpretation: Performing Lab:[facility], [address] [place] [place] [phone] Notes/Report: Triglycerides 112 <150 mg/dL Desirable Triglyceride: [...] A1c Reviewed date:12/10/2024 04:49:55 AM Interpretation: Performing Lab:[facility], [address] [place] [phone] Notes/Report: Hemoglobin A1c % 6.8 <6.0 % [...] average glucose, using the formula of the U1G-Rzaitvt Average Glucose study (ADAG), Diabetes Care, Vol.31,#8, 2007 Complete Blood Count Auto Di ff Reviewed date:12/10/2024 04:49:55 AM Interpretation: Performing Lab:[facility], [address] [place] [place] [phone] Notes/Report: White Blood Count 5.9 4.8-10.8 X10*3/uL [...] Panel Reviewed date:12/10/2024 04:49:55 AM Interpretation: Performing Lab:[facility], [address] [place] [place] [phone] Notes/Report: Sodium 141 135-145 mmol/L Potassium 4.3 [...] Antigen Reviewed date:12/10/2024 04:49:55 AM Interpretation: Performing Lab:[facility], [address] [place] [phone] Notes/Report: Prostate Specific Antigen 1.20 <0.05-4.0 ng/mL [...] Problem Status W/U Status Risk Notes Problem 4180457 Former smoker (Z87.891) Active confirmed He has a plan to prevent relapse in times of stress and illness. He is highly motivated not to smoke. Problem 64599295 DM (diabetes mellitus) (E11.9) Active confirmed His fastin g blood glucose level was 73. His A1c is 6.7. He is free of symptoms. I will refer him back to his primary care physician for management of his diabetes. Problem 124837052 Overweight (E66.3) Active confirmed His body mass index is 26.6 and he has lost several pounds. I recommend a gradual weight loss until about a mass index is in the normal range. We discussed the elements of a weight loss diabetic diet. Problem 144473961 Thrombocytopenia (D69.6) Active confirmed His platelet count is 189. He is intermittently low, but usually normal. No treatment is necessary at this time. The value will be observed. Problem 57554273 Hypercalcemia (E83.52) Active confirmed His calcium level is now normal at 9.5. Problem 160418129 Paroxysmal atria l fibrillation (I48.0) Active confirmed He was in sinus rhythm today with no symptoms. His medications were continued without change. Problem 76849939 Ureterolithiasis (N20.1) Active confirmed He has had no episodes of renal colic. Since his last visit. He has had no hematuria or dysuria. Problem 13761979 HTN (hypertension) (I10) Active confirmed His blood pressure was slightlyy elevated at 145/85 today. I recommended sodium restriction, weight loss, but made no change in his medications.He was referred back to primary care Problem 204846349 Anticoagulated (Z79.01) Active confirmed He remains on Xarelto without bleeding. He has been compliant with his medication. Problem 98732616 COPD (chronic obstructive pulmonary disease) (J44.9) Active confirmed He is mildl y symptomatic, but able to conduct all of the activities of daily life without supplemental oxygen. Problem 911604570 Cholelithiasis (K80.20) Active confirmed There is no right upper quadrant tenderness and he feels well today. His diet is unrestricted. His appetite is good Problem 478057359 Non-small cell carcinoma of lung (C34.90) Active confirmed He remains free of recurrent disease with a normal mental status. Problem 354838943 Rotator cuff tea r (M75.100) Active confirmed The pain is stable but he does not wish to have any treatment at this time. Problem 235446617 Benign prostatic hyperplasia with lower urinary tract symptoms (N40.1) Active confirmed He is stable with nocturia once or twice a night. No change in his regimen is necessary. Problem 98036908 Brain metastasis (C79.31) Active confirmed He reports no new neurological symptoms. He has had no headaches or weakness or seizures or episodes of syncope. Surveillance will continue. Problem [id number] Other chronic pulmonary embolism without acute cor [...] Date Provider Diagnosis Gregory Cleveland III, MD [address] [place] [address] [address] [place], [place] [phone] 09/23/2024 Gregory Cleveland Former smoker Z87.89 1 ; Non-small cell carcinoma of lung C34.90 ; DM (diabetes mellitus) E11.9 ; HTN (hypertension) I10 ; Rotator cuff tear M75.100 ; Ureterolithiasis N20.1 and Thrombocytopenia D69.6 Gregory Cleveland III, MD [address] [place] [address] [address] [place] [phone] 12/04/2024 Gregory Cristofer Former smoker Z87.89 1 ; Overweight E66.3 ; DM (diabetes mellitus) E11.9 ; HTN (hypertension) I10 ; Non-small cell carcinoma of lung C34.90 ; Rotator cuff tear M75.100 ; Paroxysmal atrial fibrillation I48.0 ; 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 09/23/2024 HTN (hypertension) (ICD-10 - I10) His [...] medications.He was referred back to primary care 09/23/2024 Rotator cuff tear (ICD-10 - M75.100) [...] have any treatment at this time. 09/23/2024 Thrombocytopenia (ICD-10 - D69.6) His platelet [...] his regimen is necessary. Plan Of Treatment Pending Test Test Name Order Date PROFILE, FASTING (COMPREHENSIVE METABOLI C) 02/22/2021 PROFILE, FASTING (COMPREHENSIVE METABOLI C) 12/04/2024 PROFILE, RANDOM (COMPREHENSIVE METABOLIC ) 09/18/2018 PROFILE, [...] 02/22/2021 MICROALBUMIN, RANDOM 02/22/2021 CBC w DIFF 06/21/2021 CBC w DIFF 02/19/2019 CBC w DIFF 02/22/2021 CBC w DIFF 12/04/2024 CBC w DIFF 07/27/2020 CBC w DIFF 09/18/2018 CBC w DIFF 07/17/2018 CBC w DIFF 05/08/2019 CBC w DIFF 05/15/2018 SED RATE (ESR) 05/08/2019 XR CHEST 2 VIEW PA & LAT 05/15/2018 XR CHEST 2 VIEW PA & LAT 07/17/2018 XR LUMBAR SPINE 4+ VIEWS 07/17/2018 VITAMIN D 25-OH TOTAL 02/19/2019 VITAMIN D 25-OH TOTAL 09/18/2018 Glucose Fasting 07/12/2021 Lipid Panel 02/22/2021 Next Appt Details Provider Name:Gregory Cleveland , 06/17/2025 02:00:00 PM, [address] [place] [address] [address] [facility], [place], [address], Insurance Providers Payer Name Payer Address Payer Phone Subscriber Number Group Number Insured Name Patient Relationship to Insured Coverage Start Date Coverage End Date MEDICARE NGS [address] [place] [address] [id number] Daryl felixJah Self - patient is the insured [facility] [address] [place], [place] [id number] Daryl felixJah Self - patient is [...]
--- OUTSIDE RECORDS SUMMARY | 2025-03-27 17:39 | XMS_ITS | Continuity of Care Document ---
Author Organization [place] - [facility], [facility] Address [address] [place] [address] Care Team Providers Care Program Coordinator For Residence Life Name Role Phone LIZABETH DUFFY Primary Care Provider Assessment Encounter Date Assessment Date Assessment LastModified by Organization Details LastModified Time 02/10/2025 02/10/2025 Audiological evaluation results: 02/10/2025 Right ear: Normal sloping to profound sensorineural hearing loss with excellent word recognition. Left ear: Normal sloping to profound sensorineural hearing loss with excellent word recognition. Tympanometry: Right Ear: Type A Left Ear: Type A [email or web address] Not available 02/10/2025 15:46:37 Plan of Treatment Reminders Order Date Submit Date Provider Last Modified By Organization Details Last Modified Time Details Appointments None record ed. Lab None record ed. Referral None record ed. Procedures None record ed. Surgeries None record ed. Imaging None record ed. Medication Orders None record ed. Patient TargetsNo targets recorded. Patient InstructionsNo instructions recorded. Reason for Referral None Reported. Results Created Date Observation Date Name Description Value Unit Range Abnormal Flag Note LastModifiedBy Organization Detail LastModifiedTime 02/11/20 25 audio gram No observ ation record ed. BARCODE Not Available 2024 17:06:33 Result Notes None recorded. Problems Name Problem SNOMED Code Status Onset Date Resolution Date Notes Provider Name and Address Organization Details Recorded Time Sensorineur al hearing loss of bilateral ears 543751850 Active 2024 RAMONE Henry MD [address] [place] [address], [address] [place] [address] - [facility] 07:40:17 Impacted cerumen of bilateral ears 7893221058594 108 Active 2024 RAMONE Henry MD [address], [address], [facility] - [facility] 07:39:36 Problem Notes None recorded. Procedures Surgical History Date Name Laterality Status Provider Name and Address Organization Details Recorded Time Comp Audio with Tymps - 04957 & 66984 completed JACKSON LOCKWOOD 100 [facility],[address], [address], [facility] - [facility] [place] 02/10/2025 14:38:17 Cerumen removal with microscope bilateral completed RAMONE CUELLO MD [address] [place] [address],[address], [address], [facility] - [facility] 02/11/2025 07:39:42 Imaging Results None recorded. Procedure Notes None recorded. Medical Equipment None Reported. Allergies No known drug allergies Medications Name Sig Start Date Stop Date Status Note LastModified by Organization Details LastModified Time amoxicillin 500 mg capsule TAKE 1 CAPSULE BY MOUTH EVERY 8 HOURS UNTIL FINISHED 02/10 completed Not Available Not Available Not Available carvedilol 6.25 mg tablet TAKE 1 TABLET TWICE A DAY; MUST ADMINISTE R WITH A MEAL/FOOD active Not Available Not Available No t Available ketoconazol e 2 % shampoo SHAMPOO SCALP DAILY UNTIL BETTER, THEN 2-3 TIMES A WEEK FOR MAINTENAN CE. active Not Available Not Available No t Available trazodone 50 mg tablet TAKE 1 TABLET BY MOUTH AT BEDTIME NEEDED FOR SLEEP 02/10 completed Not Available Not Available Not Available amlodipine 5 mg tablet TAKE 1 TABLET DAILY active Not Available Not Available No t Available tamsulosin 0.4 mg capsule TAKE 2 CAPSULES AT BEDTIME 02/10 completed Not Available Not Available Not Available tacrolimus 0.03 % topical ointment APPLY SMALL AMOUNT TO BOTH UPPER LID AT BEDTIME 02/10 completed Not Available Not Available Not Available triamcinolo ne acetonide 0.025 % topical ointment PLEASE SEE ATTACHED FOR DETAILED DIRECTION S 02/10 completed Not Available Not Available Not Available metformin ER 500 mg tablet,exte nded release 24 hr TAKE 1 TABLET TWICE A DAY active Not Available Not Available No t Available finasteride 5 mg tablet TAKE 1 TABLET DAILY active Not Available Not Available No t Available Xarelto 20 mg tablet TAKE 1 TABLET ONCE DAILY active Not Available Not Available No t Available Tresiba FlexTouch U-100 insulin 100 unit/mL (3 mL) subcutaneou s pen INJECT 36 UNITS SUBCUTANE OUSLY ONCE DAILY 02/10 completed Not Available Not Available Not Available Ultra-Fine Pen Needle 31 gauge x 5/16 USE DIRECTED active Not Available Not Available No t Available Vitals Date Recorded Body height Body mass index (BMI) Body weight Provider Name and Address Organization Details Last Updated DateTime 02/10/2025 187.96 cm 23.8 kg/m2 29802.[address] - [facility] 02/10/2025 14:40:02 Social History None recorded. Functional Status None recorded. Mental Status None recorded. Family History Nothing Reported. Medical History Condition Response Anesthesia Complications Y Hypertension Y Past Encounters Encounter ID Performer Location Encounter Start Date Encounter Closed Date Diagnosis/Indication Diagnosis SNOMED-CT Code Diagnosis ICD10 Code Diagnosis IMO Codes Diagnosis Note [id number] RAMONE CUELLO MD [facility] of [facility] on [address] [place] [address] 02/10/2025 13:34:06 02/10/2025 15:58:02 Sensorineural hearing loss of bilateral ears 009459347 H90.3 [id number] We reviewed his audio. He is a candidate for hearing aids but was not interested in this time. I recommend repeat audio in 1 year. Impacted c erumen of bilateral ears 5714272976 941495 H61.23 265595 Recurrent Cerumen Impactions : Ears were meticulous ly cleaned bilaterall y today with a curette and suction. It was medically necessary as conductive hearing loss occurs if not debrided. The patient tolerated this well and will follow up for repeat debridemen t per routine. [id number] JACKSON LOCKWOOD [facility] on [address] [place] [address] 02/10/2025 14:38:09 02/12/2025 15:59:08 Sensorineural hearing loss of bilateral ears 767379069 H90.3 [id number] Health Concerns Section Related Observation LastModified by Organization Detai ls LastModified Time None Recorded Concern Status LastModified by Organization Details LastModified Time None Recorded Payers Encounter Date Sequence Insurance Name Policy Number Policy Clark Covered Member ID Clark Member ID Guarantor Name 02/10/2025 1 [place]ICARE B-[place]: [facility] [email or web address] Jah Zuleta Ever [id number] Jah Song Ever 02/10/2025 2 BCBS-ID:[facility] PLAN F (MEDICARE SUPPLEMENT) [id number] Jah Zuleta Ever [id number] Jah Song Ever Notes Date Note Type Note Provider Name and Address Organization Details Recorded Time 02/10/2025 text/html ROS as noted in the HPI He has a history of gradual hearing loss over time. Has been noted to have cerumen impactions. Audio showed normal sloping to severe SNHL AU. Denies tinnitus. RAMONE CUELLO MD [address] [place] [address], [place], [address], [facility] - [facility] 02/11/2025 07:40:47
--- OUTSIDE RECORDS SUMMARY | 2025-03-27 17:39 | XMS_ITS | Data Portability ---
Author Organization [place] - [facility], Allergy Address [address] [place] [address] Care Team Providers Care Surgical Processor Name Role Phone LIZABETH DUFFY Primary Care Provider [phone] Assessment Encounter Date Assessment Date Assessment LastModified by Organization Details LastModified Time 02/10/2025 02/10/2025 Audiological evaluation results: 02/10/2025 Right ear: Normal sloping to profound sensorineural hearing loss with excellent word recognition. Left ear: Normal sloping to profound sensorineural hearing loss with excellent word recognition. Tympanometry: Right Ear: Type A Left Ear: Type A [email or web address] Not available 02/10/2025 15:46:37 Plan of Treatment [...] Sensorineur al hearing loss of bilateral ears 417804074 Active 2024 RAMONE Henry MD [address], [address] [place] [address] - [facility] 07:40:17 Impacted cerumen of bilateral ears 9940595413132 108 Active 2024 RAMONE Henry MD 100 [facility] 100, [place], [address], [facility] 07:39:36 Problem Notes None recorded. Procedures Surgical History Date Name Laterality Status Provider Name and Address Organization Details Recorded Time Comp Audio with Tymps - 69957 & 39033 completed JACKSON LOCKWOOD 100 [facility],[address], [address], [facility] - [facility] 02/10/2025 14:38:17 Cerumen removal with microscope bilateral completed RAMONE CUELLO MD 100 [facility],[address], [address], [facility] 02/11/2025 07:39:42 Imaging Results None recorded. [...] Updated DateTime 02/10/2025 187.96 cm 23.8 kg/m2 43202.59 g David Anderson [place] - [facility] 02/10/2025 14:40:02 Social History None recorded. Functional Status None recorded. Mental Status None recorded. Family History Nothing Reported. Medical History Condition Response Anesthesia Complications Y Hypertension Y Past Encounters Encounter ID Performer Location Encounter Start Date Encounter Closed Date Diagnosis/Indication Diagnosis SNOMED-CT Code Diagnosis ICD10 Code Diagnosis IMO Codes Diagnosis Note [id number] RAMONE CUELLO MD [facility] of [facility] on [address] [place] [phone] 02/10/2025 13:34:06 02/10/2025 15:58:02 Sensorineural hearing loss of bilateral ears 759496635 H90.3 [id number] We reviewed his audio. He is a candidate for hearing aids but was not interested in this time. I recommend repeat audio in 1 year. Impacted c erumen of bilateral ears 1672086790 815000 H61.23 399987 Recurrent Cerumen Impactions : Ears were meticulous ly cleaned bilaterall y today with a curette and suction. It was medically necessary as conductive hearing loss occurs if not debrided. The patient tolerated this well and will follow up for repeat debridemen t per routine. [id number] JACKSON LOCKWOOD [facility] on [address] [place] [address] 02/10/2025 14:38:09 02/12/2025 15:59:08 Sensorineural hearing loss of bilateral ears 884778476 H90.3 [id number] Health Concerns Section Related Observation LastModified by Organization Detai ls LastModified Time None Recorded Concern Status LastModified by Organization Details LastModified Time None Recorded Advance Directives Directive None Recorded Payers Insurance Date Sequence Insurance Name Policy Number Policy Clark Covered Member ID Clark Member ID Guarantor Name 02/10/2025 1 MEDICARE B-[place]: [facility] [employer] Jah Zuleta Ever [id number] Jah Curtis 02/08/2025 2 BCBS-ID:[facility] PLAN F (MEDICARE SUPPLEMENT) [id number] Jah Song Ever [id number] Jah Song Ever Notes Date Note Type Note Provider Name and Address Organization Details Recorded Time 02/10/2025 text/html ROS as noted in the HPI He has a history of gradual hearing loss over time. Has been noted to have cerumen impactions. Audio showed normal sloping to severe SNHL AU. Denies tinnitus. RAMONE CULELO MD [address] [place] [address], [place], [address], [facility] - [facility] 02/11/2025 07:40:47
--- OUTSIDE RECORDS SUMMARY | 2025-03-27 17:39 | XMS_ITS | Patient Health Record ---
Author Organization [facility] Address [address] [place] [address] Care Team Providers Care Geothermal Operations Manager Name Role Phone Javier Rosales MD Primary Care Provider UnavailLandry Smith Unavailable [phone] Reason For Referral No Information Medications Medication [...] Status Risk Notes Problem Acquired hallux valgus (33039895) Hallux valgus (acquired), left foot (M20.12) Active confirmed Plan Of Treatment Pending Test Test Name Order Date [id number] NAIL, 1-5 03/09/2011 [id number] SKIN LESIONS, 2 TO 4 03/09/20 11 Insurance Providers Payer Name Payer Address Payer Phone Subscriber Number Group Number Insured Name Patient Relationship to Insured Coverage Start Date Coverage End Date Medicare National [employer] [address] [place] [address] [phone] [id number] Jah Ayala Self - patient is the insured [facility] All Others [address] [place] [address] [phone] [id number] Daryl felix Jah Self - patient is the insured Medical (General) History Medical History History ICD Code mumps measles hypertension diabetic Chicken pox Arthritis Cancer Surgical History Surgery Date(Month/Year) right rotator cuff 2009 lung surgery 2015
--- OUTSIDE RECORDS SUMMARY | 2025-03-27 17:40 | XMS_ITS | Continuity of Care Document ---
Author Organization [place] - [facility], [facility] Address [address] [place] [address] Care Team Providers Care Seasoning Mixer Name Role Phone LIZABETH DUFFY Primary Care Provider [phone] Assessment No assessment recorded. Plan of Treatment Reminders Order Date Submit [...] Sensorineur al hearing loss of bilateral ears 635060753 Active 2024 RAMONE Henry MD [address] [place] [address], [place], [address], [facility] 5 07:40:17 Impacted cerumen of bilateral ears 8452652961196 108 Active 2024 RAMONE Henry MD [address] [place] [address], [place], [address], [facility] - [facility] 5 07:39:36 Problem Notes None recorded. Procedures Surgical History Date Name Laterality Status Provider Name and Address Organization Details Recorded Time Comp Audio with Tymps - 49591 & 66448 completed JACKSON LOCKWOOD 100 [facility],[place] [address], [place], [address], [place] - [facility] 02/10/2025 14:38:17 Cerumen removal with microscope bilateral completed RAMONE CUELLO MD 100 [facility],[address], [address], [facility] - [facility] 02/11/2025 07:39:42 Imaging Results None recorded. Procedure [...] Available Ultra-Fine Pen Needle 31 gauge x /16 USE DIRECTED active Not Available Not Available No t Available Vitals Date Recorded Body height Body mass index (BMI) Body weight Provider Name and Address Organization Details Last Updated DateTime 02/10/2025 187.96 cm 23.8 kg/m2 34495.59 g David Justin [place] - [facility] 02/10/2025 14:40:02 Social History None recorded. Functional Status None recorded. Mental Status None recorded. Family History Nothing Reported. Medical History Condition Response Anesthesia Complications Y Hypertension Y Past Encounters Encounter ID Performer Location Encounter Start Date Encounter Closed Date Diagnosis/Indication Diagnosis SNOMED-CT Code Diagnosis ICD10 Code Diagnosis IMO Codes Diagnosis Note [id number] RAMONE CUELLO MD [facility] of [facility] on [address] [place] [address] 02/10/2025 13:34:06 02/10/2025 15:58:02 Sensorineural hearing loss of bilateral ears 179897720 H90.3 500883 We reviewed his audio. He is a candidate for hearing aids but was not interested in this time. I recommend repeat audio in 1 year. Impacted c erumen of bilateral ears 0195803089 832380 H61.23 270502 Recurrent Cerumen Impactions : Ears were meticulous ly cleaned bilaterall y today with a curette and suction. It was medically necessary as conductive hearing loss occurs if not debrided. The patient tolerated this well and will follow up for repeat debridemen t per routine. [id number] JACKSON LOCKWOOD [facility] on [address] [place] [address] 02/10/2025 14:38:09 02/12/2025 15:59:08 Sensorineural hearing loss of bilateral ears 392945410 H90.3 [id number] Health Concerns Section Related Observation LastModified by Organization Detai ls LastModified Time None Recorded Concern Status LastModified by Organization Details LastModified Time None Recorded Payers Encounter Date Sequence Insurance Name Policy Number Policy Clark Covered Member ID Clark Member ID Guarantor Name 02/10/2025 1 [place] B-[place]: [employer] Jah Curtis [id number] Jah Curtis 02/10/2025 2 BCBS-ID:[facility] PLAN F (MEDICARE SUPPLEMENT) [id number] Jah Song Ever [id number] Jah Curtis Notes Date Note Type Note Provider Name and Address Organization Details Recorded Time 02/10/2025 text/html ROS as noted in the HPI He has a history of gradual hearing loss over time. Has been noted to have cerumen impactions. Audio showed normal sloping to severe SNHL AU. Denies tinnitus. RAMONE CUELLO MD [address] [place] [address], [address], [facility] - [facility] 02/11/2025 07:40:47
--- OUTSIDE RECORDS SUMMARY | 2025-03-27 17:40 | XMS_ITS | Patient Health Record ---
Author Organization [facility] Address [address] [place] [address] Care Team Providers Care Forest Nursery Supervisor Name Role Phone Connie (RETIRED) Javier FARIA Primary Care Provide Eusebio Birch Jr Unavailable [phone] Reason For Referral No Information Medications Medication SIG (Take, Route, Frequency, Duration) Notes Start Date End Date Status Colyte with Flavor Packs 240 GM Solution Reconstituted As directed Orally Over the specified time.; Duration: 1 day(s) 08/09/2013 Active Multi Vitamin/Minerals Active Aspir-81 82mg Active Diovan 320mg Active metFORMIN HCl ER 500mg Active Glimepiride 4mg Acti ve Lisinopril 20/25mg A ctive Social History Social History Additional Details Category Social Info Options Details Miscellaneous: Marital status: Occupation: retired Problems Problem Type SNOMED Code ICD Code Onset Dates Problem Status W/U Status Risk Notes Problem Colon cancer screening (103352326) Colon cancer screening (V76.51) Active confirmed Plan Of Treatment No Information Insurance Providers Payer Name Payer Address Payer Phone Subscriber Number Group Number Insured Name Patient Relationship to Insured Coverage Start Date Coverage End Date MEDICARE OF [place] [address] [place] [address] [phone] [id number] RAFAELA RATLIFF Self - patient is the insured [facility] [address] [place], [place] [id number] RAFAELA RATLIFF Self - patient is the insured Medical (General) History Medical History History ICD Code diabetes mellitus hypertension Surgical History Surgery Date(Month/Year) oral surgery 1991 rotator cuff tear repair 2010
== END 2025-03-27 14:05 | disposition home or self-care (01) ==
LOC: HO.HMCHD 13:33
PROVIDERS: PCP Internal Medicine; Visit Provider Student in an Organized Health Care Education/Training Program
DX: G47.09 Other insomnia (principal); I48.91 Unspecified atrial fibrillation; E11.8 Type 2 diabetes mellitus with unspecified complications; I10 Essential (primary) hypertension; N40.0 Benign prostatic hyperplasia without lower urinary tract symptoms; R97.20 Elevated prostate specific antigen [PSA]

== ENCOUNTER → 2025-03-27 13:33 | Outpatient (BNVA) | payer MEDICARE, SELFPAY | PROVIDERS: PCP Internal Medicine; Visit Provider Student in an Organized Health Care Education/Training Program | DX: G47.00 Insomnia, unspecified (principal); I48.91 Unspecified atrial fibrillation; E11.8 Type 2 diabetes mellitus with unspecified complications; I10 Essential (primary) hypertension; N40.0 Benign prostatic hyperplasia without lower urinary tract symptoms; R97.20 Elevated prostate specific antigen [PSA]; Z79.01 Long term (current) use of anticoagulants | CPT/HCPCS: 99212 ==